=== PATIENT | female | born 1950 | race Caucasian/White ===

== ENCOUNTER 2025-01-26 11:58 | Outpatient (CLI) | payer MEDICARE, SELFPAY ==
--- OUTSIDE RECORDS SUMMARY | 2010-03-06 19:00 | XMS_ITS | Continuity of Care Document ---
Author Organization [facility] Address [address] [place] [address] [place] [address] Phone Care Team Providers Care Ice Cream Scooper Name Role Phone [facility] Unavailable Unavail able Francisco Carpenter Unavailable Unavailable Procedures Procedure Date BF Plastic Sphcyl Ruth To +/-4d .12-2d Vision Svcs Frames Purchases Scratch Resistant Coating Eye Exam & Treatment Refraction Office/outpatient Visit, [facility] Advance Directives Directive Yes / No Effective Date File Name No Information Encounters Encounter Description Practice Location Reason(s) For Visit Diagnoses Date Provider Providers Copied on Encounter [facility], [address] [place] [address] [address], [place], [place], [id number], [place] tel:[phone] [facility] No Information 3-201 0 Optical [facility] . [address] [facility], [address], [place], [place], [id number], [place]. tel:[phone] Referring Provider: Gama Yancey MD P, [address] [place], [address] . tel:[phone] sulting Provider: Francisco Carpenter, [address] [place] [address], [place], [address]. tel:[phone] [facility], [address] [place] [address] [address], [place], [place], [id number], [place] tel:[phone] [facility] No Information 9-200 9 Liu Carol Ann. [address], [address], [place], [address], [place]. tel:[phone] Office/outpat ient Visit, [facility], [address], [place], [place], [address], [place] tel:[phone] [facility] No Information Jan-2 200 8 Alexa Maharaj. [address] , [address], [place], [address], [place]. tel:[phone] Family History Family Member Type Diagnosis Age At Onset No Information Payers Payer name Insurance type Covered republican ID Authoriza yani(s) [id number] Social History Type Description Quantity Date Captured Comments Sex Female Smoking Status No Information Chief Complaint And Reason For Visit No Information Reason For Referral Reason For Referral No Information History Of Present Illness Encounter Date Complaint History Of Prese nt Illness No Information Functional Status Date Functional Assessmen t No Information Instructions Date Instruction Additional Infor mation No Information Assessments Type Assessment Date No Information Patient Care Teams Name Effective Dates (start - stop) Status Members No Information
--- OUTSIDE RECORDS SUMMARY | 2025-01-25 13:00 | XMS_ITS | Encounter Summary ---
Author Organization [facility] Address [address] [place] [address] Care Team Providers Care Parachute Marker Name Role Phone Ana Vences MD Primary Care Provider [phone] Reason for Referral * Sleep Medicine (Routine) - Closed Specialty Diagnoses / Procedures Referred By Demarcus t Referred To Contact Diagnoses Obstructive sleep apnea Procedures Portable/Home Sleep Study Ciera Rogers MD [address] [place] [address] [address] [place] [address] Phone: tel: [address] [phone] Referral ID Status Reason Start Date Expiration Date Visits Re quested Visits Authorized [id number] Closed 01/05/2025 02/04/2026 1 1 Reason for Visit * Sleep Medicine (Routine) - Closed Specialty Diagnoses / Procedures Referred By Demarcus burt Referred To Contact Diagnoses Obstructive sleep apnea Procedures Portable/Home Sleep Study Ciera Rogers MD [address] [place] [address] [address] [place] [address] Phone: tel: [address] [phone] Referral ID Status Reason Start Date Expiration Date Visits Re quested Visits Authorized [id number] Closed 01/05/2025 02/04/2026 1 1 Encounter Details Date Type Department Care Team (Latest Contact Info) Description 01/25/2025 1:00 PM CDT - 01/25/2025 11:59 PM CDT Hospital Encounter [facility] [address] [place] [address] Obstructive sleep apnea Discharge Disposition: Discharge to home or self care Social History Tobacco Use Types Packs/Day Years Used Date Smoking Tobacco: Never Smokeless Tobacco: Never Alcohol Use Standard Drinks/Week Comments Never 0 (1 standard drink = 0.6 oz pur e alcohol) PHQ-2 Answer Date Recorded PHQ-2 Total Score (If total score is 3 or more points, staff should administer the PHQ-9) 0 01/19/2025 PHQ-9 Answer Date Recorded PHQ-9 Total Score 18 09/23/2024 AUDIT-C Answer Date Recorded Q1: How often do you have a drink containing alcohol? Never 01/19/2025 Q2: How many drinks containi ng alcohol do you have on a typical day when you are drinking? Patient does not drink Q3: How often do you have si x or more drinks on one occasion? Never 01/19/2025 Comments No Sex and Gender Information Value Date Recorded Sex Assigned at Not on file Legal Sex Female 3:36 AM GAME TRAPPER Gender Identity Not on file Sexual Orientation Not on file Occupation Industry Job Start Date Job End Date Retired Not on file Not on file Not on file documented as of this encounter Medications at Time of Discharge amitriptyline (ELAVIL) 50 mg tablet Take 1 tablet (50 mg total) by mouth nightly 90 tablet 1 08/23/2024 cetirizine (ZyrTEC) 10 mg tablet Take 1 tablet (10 mg total) by mouth daily as needed for allergies 90 tablet 12/09/2024 cycloSPORINE (RESTASIS MULTIDOSE) 0.05 % drops instill 1 drop by ophthalmic route every 12 hours into affected eye(s) 0 0 08/15/[address] (CYMBALTA) 60 mg capsule Take 1 capsule by mouth once daily 90 capsule 1 12/02/2024 gabapentin (NEURONTIN) 300 mg capsule TAKE 1 CAPSULE BY MOUTH NIGHTLY 90 capsule 1 10/27/2024 hydroCHLOROthiazide 12.5 mg tablet Take 1 tablet (12.5 mg total) by mouth daily 90 tablet 10/28/2024 hydrocortisone 2.5 % cream Apply topically 2 (two) times a day as needed for irritation or rash 453.6 g 4 01/06/2025 hydroxychloroquine (PLAQUENIL) 200 mg tablet Take 1 tablet (200 mg total) by mouth 2 (two) times a day 180 tablet 1 09/28/2024 levothyroxine (SYNTHROID) 88 mcg tabletIndications:A cquired hypothyroidism Take 1 tablet (88 mcg total) by mouth daily 90 tablet 4 09/23/2024 meloxicam (MOBIC) 15 mg tablet Take 1 tablet by mouth once daily 90 tablet 1 10/27/2024 potassium chloride ER (Klor-Con M20) 20 mEq CR tablet Take 1 tablet (20 mEq total) by mouth daily 90 tablet 3 10/28/2024 solifenacin (VESIcare) 10 mg tablet Take 1 tablet (10 mg total) by mouth daily 30 tablet 11 09/10/2024 Zepbound 2.5 mg/0.5 mL solution vialIndications:BMI 33.0-33.9,adult INJECT 0.5 ML (2.5 MG) UNDER THE SKIN ONCE WEEKLY (0.5ML= 50 UNITS) 2 mL 01/25/2025 documented as of this encounter Discharge Disposition Disposition Code Departure Means Destination Discharge to home or self care documented in this encounter Plan of Treatment Upcoming Encounters Date Type Department Care Team (Late st Contact Info) Description 07/06/2025 11:00 AM [facility] Hospital Encounter [address] [address] Jeffry Morris MD [address] [place] [address] [place] [address] 07/06/2025 11:00 AM GAME TRAPPER - 07/06/2025 11:30 AM GAME TRAPPER Surgery [address] [address] Jeffry Morris MD [address] [place] [address] [place] [address] COLONOSCOPY Pending Results Name Type Priority Associated Diagnoses Date /Time Portable/Home Sleep Study Sleep Center Routine Obstructive sleep apnea 01/26/2025 12:18 PM CDT Scheduled Orders Name Type Priority Associated Diagnoses Orde r Schedule Portable/Home Sleep Study Sleep Center Routine Obstructive sleep apnea Once for 1 Occurrences starting 01/25/2025 until 01/25/2025 Scheduled Procedures Name Priority Associated Diagnoses Date/Ti me COLONOSCOPY Screening for colon cancer 07/06/2025 11:00 AM GAME TRAPPER documented as of this encounter Visit Diagnoses Diagnosis Screening for colon cancer- Primary Special screening for malignant neoplasms, colon Obstructive sleep apnea Obstructive sleep apnea (adult) (pediatric) Screening for colon cancer Special screening for malignant neoplasms, colon documented in this encounter Care Teams Parachute Marker Relationship Specialty Start Date End Date Ana Vences MD [address] [place] [address] [address] [place] [address] PCP - General Family Medicine 07/06/24 documented as of this encounter
--- NOTE | ~2025-01-26 | XR_ITS ---
EXAM/PROCEDURE: XR chest 2V - 01/26/2025 13:20 CDT HISTORY: 74 years old Female with G95.9 - Disease of spinal cord, unspecified TECHNIQUE: Two view(s) of the chest. COMPARISON: None available. FINDINGS: LUNGS/ PLEURA: No focal consolidation. No appreciable pneumothorax or large pleural effusion. HEART/ MEDIASTINUM: Heart appears normal in size. Atherosclerotic calcifications are seen in the aorta. BONES: Degenerative changes. Partially visualized posterior spinal fusion hardware. Diffuse osteopenia. OTHER: Visualized upper abdomen is unremarkable. IMPRESSION: No acute process. Reviewed, dictated and finalized at location N. IMPRESSION: No acute process.
--- NOTE | 2025-01-26 12:58 | ECG_ITS ---
Test Date: 2025-01-26 13:11:13 Measurements Intervals [place] Rate: 73 P: 31 NH: 188 QRS: -9 QRSD: 106 T: 17 QT: 398 QTc: 441 Interpretive Statements SINUS RHYTHM MINIMAL VOLTAGE CRITERIA FOR LVH, CONSIDER NORMAL VARIANT [MEETS CRITERIA IN ONE OF: R(aVL), S(V1), R(V5), R(V5/V6)+S(V1)] POOR R-WAVE PROGRESSION ABNORMAL ECG No previous ECG available for comparison Electronically Signed On 01-26-2025 15:38:55 CDT by Leonid Larsen M.D.
[2025-01-26 13:35] LABS: Hematocrit 34.3 % (37.0-47.0); Hemoglobin 11.0 g/dL (12.0-15.0); Mean Corpuscular HGB Conc 32.1 g/dl (32-36); Mean Corpuscular Hemoglobin 29.7 pg (26-34); Mean Corpuscular Volume 92.7 fl (80-100); Platelet Count Result 317 k/mm3 (150-375); Red Blood Count 3.70 M/mm3 (4.2-5.4); White Blood Count 4.9 K/mm3 (4.5-10.0)
--- OUTSIDE RECORDS SUMMARY | 2025-01-26 13:38 | XMS_ITS | Encounter Summary ---
Author Organization [facility] Healthcare Address [address] [place] [address] Care Team Providers Care Food Clerk Name Role Phone Luís Schaffer MD Primary Care Provider [phone] Nba Villatoro MD Primary Care Provider [phone] Chelsi Garcia MD Primary Care Provider [phone] Ana Vences MD Primary Care Provider [phone] Reason for Visit * Reason Onset Date Comments Scheduling Appointments 12/03/2019 Called f or DEXA appointment reminder; no answer Encounter Details Date Type Department Care Team ([facility] Contact Info) Description 12/03/2019 Telephone [facility] [address] [place] [address] Dontae Betancourt RT Scheduling Appointments (Called for DEXA appointment reminder; no answer) Social History Tobacco Use Types Packs/Day Years Used Date Smoking Tobacco: Never Smokeless Tobacco: Never Alcohol Use Standard Drinks/Week Comments No 0 (1 standard drink = 0.6 oz pur e alcohol) PHQ-2 Answer Date Recorded PHQ-2 Score 0 01/15/2019 Comments No Sex and Gender Information Value Date Recorded Sex Assigned at Not on file Legal Sex Female 3:36 AM CAR TESTER Gender Identity Not on file Sexual Orientation Not on file Occupation Industry Job Start Date Job End Date Retired Not on file Not on file Not on file documented as of this encounter Plan of Treatment Upcoming Encounters Date Type Department Care Team (Late st Contact Info) Description 07/06/2025 11:00 AM CAR TESTER Hospital Encounter [address] [address] Jeffry Morris MD [address] [facility] [address] [place] [address] 07/06/2025 11:00 AM CAR TESTER - 07/06/2025 11:30 AM CAR TESTER Surgery [address] [address] Jeffry Morris MD [address] [facility] [address] [place] [address] COLONOSCOPY Scheduled Procedures Name Priority Associated Diagnoses Date/Ti me COLONOSCOPY Screening for colon cancer 07/06/2025 11:00 AM CAR TESTER documented as of this encounter Visit Diagnoses Not on filedocumented in this encounter Additional Health Concerns Infection Onset Date Last Indicated Resolved Time COVID: Suspected 12/03/2021 12/03/2021 12/03/2021 1:59 PM CDT COVID19 12/03/2021 12/03/2021 12/13/2021 3:05 AM CDT COVID: Recovered Comment:Added based on recent COVID infection. 12/13/2021 12/21/2021 04/12/2022 3:[address] documented as of this encounter Care Teams Food Clerk Relationship Specialty Start Date End Date Luís Schaffer MD PCP - General Internal Medicine 06/09/17 06/04/23 Nba Villatoro MD [address] [facility] [address] [address] PCP - General Family Medicine 06/05/23 03/28/24 Chelsi Garcia MD [address] [place] [address] PCP - General Family Medicine 03/29/24 07/05/24 Ana Vences MD [address] [place] [address] PCP - General Family Medicine 07/06/24 documented as of this encounter
--- OUTSIDE RECORDS SUMMARY | 2025-01-26 13:38 | XMS_ITS | Clinical Summary ---
Author Organization [facility] Address [address] [place] [address] Care Team Providers Care Neuropsychology Service Director Name Role Phone Unavailable Primary Care Provider Unavailabl e Source Comments [facility],non-owned Affiliates and Associated Physician Practices is amultiple site organization consisting of ambulatory clinics and hospital sitesin [place], [place], [place] and [place]. This disclosure is being madepursuant to the Care Everywhere program and may not contain all information available regarding this patient. Last updated 18.[facility] [employer] Social History Tobacco Use Types Packs/Day Years Used Date Smoking Tobacco: Never Assessed Comments Unknown Sex and Gender Information Value Date Recorded Sex Assigned at Not on file Legal Sex Female 6:24 AM FIELD STAFF Gender Identity Not on file Sexual Orientation Not on file Last Filed Vital Signs Vital Sign Reading Time Taken Comments Blood Pressure - - Pulse - - Temperature - - Respiratory Rate - - Oxygen Saturation - - Inhaled Oxygen Concentration - - Weight - - Height 162.6 cm (5' 4) 05/23/2014 3:14 PM FIELD STAFF Body Mass Index - - Plan of Treatment Health Maintenance Due Date Last Done Comments BONE DENSITY TESTING 1950 COLOGUARD (AGES 45-75) - COL ON CA SCREENING 1950 COLON MONITORING 1950 COLONOSCOPY - COLON CA SCREENING 1950 CT COLONOGRAPHY - COLON CA SCREENING 1950 Colorectal Cancer Screening 1950 FIT - COLON CA SCREENING 1950 FLEX SIG - COLON CA SCREENING 1950 LIPID TESTING 1950 MAMMOGRAM 1950 MEDICARE AWV 12 MONTHS 1950 HEPATITIS C SCREENING 04/09/1968 DTAP/TDAP/TD VACCINES (1 - Tdap) 1969 PNEUMOCOCCAL VACCINE 50+ (1 of 1 - PCV) 2000 ZOSTER VACCINE (1 of 2) 2000 COVID-19 VACCINE (2023-2 5 season) 2024 DEPRESSION SCREENING 05/26/2024 INFLUENZA VACCINE (#1) 2025 Respiratory Syncytial Virus (RSV) Vaccine Pt: or over 60 yrs (1 - 1-dose 75+ series) 2025 HEPATITIS B VACCINE Aged Out No longe r eligible based on patient's age to complete this topic HIB VACCINE Aged Out No longer eligi ble based on patient's age to complete this topic HPV VACCINE Aged Out No longer eligi ble based on patient's age to complete this topic MENINGOCOCCAL (Group B) VACC INE SHARED DECISION-MAKING Aged Out No longer eligibl e based on patient's age to complete this topic MENINGOCOCCAL GROUPS A/C/Y/W VACCINE Aged Out No longer eligible b ased on patient's age to complete this topic Insurance MEDICARE AETNA
--- OUTSIDE RECORDS SUMMARY | 2025-01-26 13:38 | XMS_ITS | Encounter Summary ---
Author Organization [facility] Healthcare Address [address] [place] [address] Care Team Providers Care Market Risk Specialist Name Role Phone Ana Vences MD Primary Care Provider [phone] Encounter Details Date Type Department Care Team (Late st Contact Info) Description 12/13/2024 Results Follow-Up [facility] at [address] [place] [address] Gama Avila MD [address] [place] [address] [address] [place] [address] Mycology (fungal) culture, hair, skin and nails Nail Toe, second, right Social History Tobacco Use Types Packs/Day Years Used Date Smoking Tobacco: Never Smokeless Tobacco: Never Alcohol Use Standard Drinks/Week Comments No 0 (1 standard drink = 0.6 oz pur e alcohol) AUDIT-C Answer Date Recorded Q1: How often do you have a drink containing alcohol? Never 12/09/2024 Q2: How many drinks containi ng alcohol do you have on a typical day when you are drinking? Patient does not drink Q3: How often do you have si x or more drinks on one occasion? Never 12/09/2024 PHQ-2 Answer Date Recorded PHQ-2 Total Score (If total score is 3 or more points, staff should administer the PHQ-9) 0 12/09/2024 PHQ-9 Answer Date Recorded PHQ-9 Total Score 18 09/23/2024 Comments No Sex and Gender Information Value Date Recorded Sex Assigned at Not on file Legal Sex Female 3:36 AM FISH CLEANER MACHINE TENDER Gender Identity Not on file Sexual Orientation Not on file Occupation Industry Job Start Date Job End Date Retired Not on file Not on file Not on file documented as of this encounter Plan of Treatment Upcoming Encounters Date Type Department Care Team (Late st Contact Info) Description 07/06/2025 11:00 AM FISH CLEANER MACHINE TENDER Hospital Encounter [address] [address] Jeffry Morris MD [address] [facility] [address] [place] [address] 07/06/2025 11:00 AM FISH CLEANER MACHINE TENDER - 07/06/2025 11:30 AM FISH CLEANER MACHINE TENDER Surgery [address] [address] Jeffry Morris MD [address] [facility] [address] [place] [address] COLONOSCOPY Scheduled Procedures Name Priority Associated Diagnoses Date/Ti me COLONOSCOPY Screening for colon cancer 07/06/2025 11:00 AM FISH CLEANER MACHINE TENDER documented as of this encounter Visit Diagnoses Not on filedocumented in this encounter Care Teams Market Risk Specialist Relationship Specialty Start Date End Date Ana Vences MD [address] [facility] [address] [place] [address] PCP - General Family Medicine 07/06/24 documented as of this encounter
--- OUTSIDE RECORDS SUMMARY | 2025-01-26 13:38 | XMS_ITS | Encounter Summary ---
Author Organization [facility] Healthcare Address [address] [place] [address] Care Team Providers Care Plasterer Rough Name Role Phone Ana Vences MD Primary Care Provider [phone] Reason for Visit * Reason Onset Date Comments Medical Question/Miscellaneous 01/04/2025 Encounter Details Date Type Department Care Team ([facility] st Contact Info) Description 01/04/2025 Telephone [facility] Residency Clinic at [address] [place] [address] Ana Vences MD [address] [place] [address] [address] [place] [address] Medical Question/Miscellaneous Social History Tobacco Use Types Packs/Day Years Used Date Smoking Tobacco: Never Smokeless Tobacco: Never Alcohol Use Standard Drinks/Week Comments No 0 (1 standard drink = 0.6 oz pur e alcohol) PHQ-2 Answer Date Recorded PHQ-2 Total Score (If total score is 3 or more points, staff should administer the PHQ-9) 0 01/06/2025 PHQ-9 Answer Date Recorded PHQ-9 Total Score 18 09/23/2024 AUDIT-C Answer Date Recorded Q1: How often do you have a drink containing alcohol? Never 01/06/2025 Q2: How many drinks containi ng alcohol do you have on a typical day when you are drinking? Patient does not drink Q3: How often do you have si x or more drinks on one occasion? Never 01/06/2025 Comments No Sex and Gender Information Value Date Recorded Sex Assigned at Not on file Legal Sex Female 3:36 AM FRUIT THINNER MACHINE OPERATOR Gender Identity Not on file Sexual Orientation Not on file Occupation Industry Job Start Date Job End Date Retired Not on file Not on file Not on file documented as of this encounter Functional Status * AUDIT-C Score Answer Date of Assessment Author 0 01/06/2025 12:56 PM CDT Yun Mendez MA * Question Answer Date of Assessment Author Q1: How often do you have a drink containing alcohol? Never 01/06/2025 12:56 PM CDT Yun Mendez MA Q2: How many drinks containing alcohol do you have on a typical day when you are drinking? Patient does not drink 01/06/2025 12:56 PM CDT Yun Mendez MA Q3: How often do you have six or more drinks on one occasion? Never 01/06/2025 12:56 PM CDT Yun Mendez MA documented as of this encounter Miscellaneous Notes * Telephone Encounter - Maddison Hayes - 01/04/2025 9:57 AM CDT Call Back Caller???s Concern: patient is returning a missed call. DIRECTOR EMERGENCY DEPARTMENT read patient JAMISON Brannon's message foundunder notes in chart. Patient states she doesn't want to discontinue this medication. Call was warmtransferred to the backline. Does message need to be routed? No documented in this encounter Plan of Treatment Upcoming Encounters Date Type Department Care Team (Late st Contact Info) Description 07/06/2025 11:00 AM FRUIT THINNER MACHINE OPERATOR Hospital Encounter [facility] [address] [place] [address] Jeffry Morris MD [address] [place] [address] 07/06/2025 11:00 AM FRUIT THINNER MACHINE OPERATOR - 07/06/2025 11:30 AM FRUIT THINNER MACHINE OPERATOR Surgery [facility] [address] [place] [address] Jeffry Morris MD [address] [place] [address] [address] [place] [address] COLONOSCOPY Scheduled Procedures Name Priority Associated Diagnoses Date/Ti me COLONOSCOPY Screening for colon cancer 07/06/2025 11:00 AM FRUIT THINNER MACHINE OPERATOR documented as of this encounter Visit Diagnoses Not on filedocumented in this encounter Care Teams Plasterer Rough Relationship Specialty Start Date End Date Ana Vences MD [address] [facility] [address] [place] [address] PCP - General Family Medicine 07/06/24 documented as of this encounter
--- OUTSIDE RECORDS SUMMARY | 2025-01-26 13:38 | XMS_ITS | Clinical Summary ---
Author Organization [facility] Address [address] [place] [address] Care Team Providers Care [facility] Director Name Role Phone Ana Vences MD Primary Care Provider [phone] Allergies Active Allergy Reactions Criticality Noted Date Comments Adhesive Tape-Silicones Rash,Hives Medium 05/02/2014 Dicyclomine Hcl Other (See comments) Low 09/29/2023 Causes changes to vision and dry eye Egg Swelling Medium Lactose Diarrhea,Flatulence, Stomach upset,Other (See comments) Low 06/26/2002 Medications cycloSPORINE (RESTASIS MULTIDOSE) 0.05 % drops instill 1 drop by ophthalmic route every 12 hours into affected eye(s) 0 0 017 Active amitriptyline (ELAVIL) 50 mg tablet Take 1 tablet (50 mg total) by mouth nightly 90 tablet 1 025 Active solifenacin (VESIcare) 10 mg tablet Take 1 tablet (10 mg total) by mouth daily 30 tablet 11 025 2025 Active levothyroxine (SYNTHROID) 88 mcg tabletIndications :Acquired hypothyroidism Take 1 tablet (88 mcg total) by mouth daily 90 tablet 4 025 Active hydroxychloroquin e (PLAQUENIL) 200 mg tablet Take 1 tablet (200 mg total) by mouth 2 (two) times a day 180 tablet 1 Active gabapentin (NEURONTIN) 300 mg capsule TAKE 1 CAPSULE BY MOUTH NIGHTLY 90 capsule 1 025 Active meloxicam (MOBIC) 15 mg tablet Take 1 tablet by mouth once daily 90 tablet 1 025 Active hydroCHLOROthiazi de 12.5 mg tablet Take 1 tablet (12.5 mg total) by mouth daily 90 tablet 025 Active potassium chloride ER (Klor-Con M20) 20 mEq CR tablet Take 1 tablet (20 mEq total) by mouth daily 90 tablet [address] (CYMBALTA) 60 mg capsule Take 1 capsule by mouth once daily 90 capsule 1 025 Active cetirizine (ZyrTEC) 10 mg tablet Take 1 tablet (10 mg total) by mouth daily as needed for allergies 90 tablet 025 Active hydrocortisone 2.5 % cream Apply topically 2 (two) times a day as needed for irritation or rash 453.6 g 4 025 Active Zepbound 2.5 mg/0.5 mL solution vialIndications:B NV 33.0-33.9,adult INJECT 0.5 ML (2.5 MG) UNDER THE SKIN ONCE WEEKLY (0.5ML= 50 UNITS) 2 mL Active gabapentin (NEURONTIN) 100 mg capsule Take 1 capsule (100 mg total) by 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 before breakfast 90 capsule 025 2024 Discontinued(T herapy completed) DULoxetine DR (CYMBALTA) 30 mg capsule Take 1 capsule by mouth once daily 90 capsule 1 025 2024 Discontinued(P atient Reported) tirzepatide, weight loss, (ZEPBOUND) 2.5 mg/0.5 mL solution vialIndications:W eight Loss Management for Obese Patient (BMI >= 30) Inject 0.5 mL (2.5 mg total) under the skin every 7 days This medication record is used for ordering a prescription for [employer] 2 mL 025 2024 Discontinued(R eorder) Zepbound 2.5 mg/0.5 mL solution vialIndications:B NV 33.0-33.9,adult INJECT 0.5 ML (2.5 MG) UNDER THE SKIN ONCE WEEKLY (0.5ML= 50 UNITS) 2 mL 025 2024 Discontinued Hospital, Clinic, or Other Facility Administered Medication Ordered Dose Route Frequency Start Date End Date Status lidocaine (XYLOCAINE) 10 mg/mL (1 %) injection 3 mLIndications:Admini stration of Local Anesthesia 3 mL One-Time Injection 01/19/2025 01/19/2025 Ended Active Problems Problem Noted Date Diagnosed Date Ingrown nail of great toe 01/19/2025 Assessment & Plan (01/19/2025 12:04 PM CDT): Discussed risks and benefits of procedure. Patient is a candidate for procedure at this time, and has given verbal consent. Discussed after care. See procedure note for further details. Orders: Nail Care/Removal lidocaine (XYLOCAINE) 10 mg/mL (1 %) injection 3 mL Toenail deformity 12/09/2024 Assessment & Plan (01/06/2025 1:37 PM CDT): Chronic stable; improved with trimming the nail Did find it difficult to complete conservative measures and attempt to lift the nail from the nail bed; requesting referral to podiatry. - Podiatry referral for ingrown nail; removal/excision. - Schedule for procedure clinic if unable to get apt w/ Pods Assessment & Plan (12/09/2024 1:45 PM CDT): Chronic, stable. Clipped today; agrees to conservative management. She reports significant relief after trimming of nail. Sent to lab to r/o onychomycosis Does not appear infected. BMI 33.0-33.9,adult 12/09/2024 Assessment & Plan (12/09/2024 1:47 PM CDT): Chronic, stable. Requesting to start medication for it. - Start Mounjaro 2.5 mg Itchy scalp 12/09/2024 Assessment & Plan (01/06/2025 1:37 PM CDT): Several months of itchy scalp; no evident rash on exam. Reports that it's worse with heat. Has eliminated the new scented shampoo and it has persisted. She has known hx of SLE/Sjogrens/Raynaud's so atopy is possible. - Manage with HC 2.5% lotion - Consider ketoconazole 2% shampoo if unsuccessful Assessment & Plan (12/09/2024 1:48 PM CDT): No evident rash; reports having tried new shampoo. Will treat with anti-histamines while she attempts to identify her trigger. - Zyrtec 10 mg daily PRN for itchiness. - Avoid scented shampoos/conditioners. 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 Patient already on duloxetine. -Consider adjunctive medications (Bupropion vs mirtazapine vs atypical antipsychotics -Referral to counseling sent Acute cystitis 07/06/2024 Urinary frequency 07/01/2024 Assessment & Plan (07/01/2024 9:12 AM TRAINING DEVELOPMENT DIRECTOR): Having complaints of increased urinary frequency. -Will check UA -treat accordingly Class 1 obesity without seri ous comorbidity with body mass index (BMI) of 34.0 to 34.9 in adult 07/01/2024 Assessment & Plan (07/01/2024 9:10 AM TRAINING DEVELOPMENT DIRECTOR): Discussed lifestyle modifications to help reduce weight including diet and exercise. Patient is interested in GLP-1 agonists. Discussed the risks and benefits of the medications. -Will check if patient is diabetic for better coverage. Nummular eczema 07/01/2024 Assessment & Plan (07/01/2024 9:08 AM TRAINING DEVELOPMENT DIRECTOR): Exam consistent with nummular eczema at the left hip and periumbilical area. Failed OTC hydrocortisone steroid cream. -Will send Rx for triamcinolone 0.1% cream to be applied to the area twice daily. -consider more potent steroid if no improvement. -alternatively we can consider biopsy in the future if no significant improvement. No diagnosis on [place] 04/02/2023 Other chronic pain 04/02/2023 Lower extremity edema 01/21/2023 Assessment & Plan (07/01/2024 9:03 AM TRAINING DEVELOPMENT DIRECTOR): Controlled with diuretics. Assessment & Plan (01/21/2023 3:21 PM CDT): Reduce salt in diet, decrease gabapentin to 300 mg nightly, increase hydrochlorothiazide to full tablet 12.5 mg daily. Try compression hose. Keep legs elevated. Try weight loss. Umbilical hernia 04/04/2022 Assessment & Plan (04/04/2022 4:27 PM TRAINING DEVELOPMENT DIRECTOR): Small reducible and painless. Call back for surgical referral when ready. Warned of signs of strangulation which would prompt an ER visit. Tubular adenoma 10/01/2021 Assessment & Plan (10/01/2021 1:59 PM CDT): Patient counseled extensively on the need for repeat colonoscopy to reduce her risk of colon cancer which can lead to premature and other poor outcomes. Encounter for long-term (cur rent) use of high-risk medication 05/08/2021 Assessment & Plan (05/08/2021 2:01 PM TRAINING DEVELOPMENT DIRECTOR): Long-term use of high-risk medication requiring regular monitoring. Labs ordered, no s/s of med tox or infection. Encouraged to work with PCP to make sure all recommended cancer screens and vaccinations are complete. Avoid live-vaccines unless reviewed with inside technical sales representative first. Up to date with eye exams. Piriformis syndrome of right side 04/02/2021 Assessment & Plan (05/08/2021 2:04 PM TRAINING DEVELOPMENT DIRECTOR): Link to home exercise plan provided. Patient is frustrated that no pain relief is offered since she has had gastric bypass 10+ years ago. In the past she tolerated ibuprofen 800 mg tid but it was dc'd due to concerns for GI bleed. She would like something she could take in moderation for breakthrough pain. We discussed risk/benefit of celebrex and she will use it sparingly, understanding that of the NSAIDS it is the least likely to cause GI issue. She understands the importance of limited use and monitoring. Hyperlipidemia, unspecified 03/29/2021 Assessment & Plan (01/21/2023 3:18 PM CDT): Continue efforts at diet exercise. Assessment & Plan (04/04/2022 4:26 PM TRAINING DEVELOPMENT DIRECTOR): Diet exercise and check lipids and LFTs before next visit Assessment & Plan (10/01/2021 1:58 PM CDT): Well controlled on current therapy and will check a lipid panel and LFTs in 6 months. Assessment & Plan (03/29/2021 10:25 AM CDT): She has an elevated risk of ASCVD at 15% but declines statin therapy and is aware the risks this poses to her health. Diet exercise discussed. Bunion 03/29/2021 Assessment & Plan (03/29/2021 10:26 AM CDT): Podiatry referral. Sprain of anterior talofibular ligament of left ankle 03/13/2021 Cervicalgia 01/31/2021 Assessment & Plan (01/31/2021 12:22 PM CDT): X-rays of her cervical spine and call back for results. Refilled her methocarbamol. Should avoid NSAIDs with history of gastric bypass surgery. She reports tramadol providing no benefit in the past. Trial of Page with sedating side effects discussed and should not drive while using this medication. Risks of constipation also discussed. Gentle stretching exercises demonstrated and will refer for Physical therapy evaluation. Finally if no improvement, pain management referral. 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 11/13/2020 Overview (11/13/2020): Added automatically from request for surgery [id number] Degenerative arthritis of pr oximal interphalangeal joint of middle finger of right hand 11/13/2020 Overview (11/13/2020): Added automatically from request for surgery [id number] Abdominal pain 10/18/2020 Overview (10/18/2020): Added automatically from request for surgery [id number] History of colonic polyps 10/18/2020 Overview (10/18/2020): Added automatically from request for surgery [id number] Microscopic hematuria 09/26/2020 Assessment & Plan (09/26/2020 6:33 PM CDT): Repeat UA and C&S in 1 week to ensure clearing of her microscopic hematuria related to her recent urinary tract infection. Epigastric abdominal pain 09/26/2020 Assessment & Plan (09/26/2020 6:33 PM CDT): EGD and CT of her abdomen pelvis. GI referral as needed. Stop NSAIDs with history of gastric bypass. Continue Pepcid. H/O Clostridium difficile infection 09/15/2018 Overview (09/15/2018): 02/2018 GERD (gastroesophageal reflux disease) 9 Assessment & Plan (09/26/2020 6:32 PM CDT): Continue Pepcid for now. Stop ibuprofen. Assessment & Plan (04/20/2020 8:20 PM TRAINING DEVELOPMENT DIRECTOR): Pepcid p.r.n. Assessment & Plan (09/16/2018 11:21 PM CDT): Start ranitidine 150 mg p.o. B.i.d. And call back if no improvement for switching to PPI. Overactive bladder 03/02/2018 Overview (09/15/2018): Myrbetriq was too expensive 02/2018. Failed Ditropan - dry mouth. Assessment & Plan (01/21/2023 3:19 PM CDT): Try increasing VESIcare to 10 mg daily. Warned of potential increase of dry mouth. Assessment & Plan (09/16/2018 11:14 PM CDT): Continue VESIcare. Assessment & Plan (03/02/2018 6:20 PM CDT): Trial of Myrbetriq. If ineffective or not covered, consider Ditropan. Patient aware of possible side effects. Irritable bowel syndrome with diarrhea 8 Overview (09/26/2020): Diarrhea caused by amlodipine Assessment & Plan (03/02/2018 6:18 PM CDT): Has not done well with fiber, probiotics, Imodium. EGD and colonoscopy without source of diarrhea. Trial of Xifaxan and will call back with results. Osteoporosis 09/01/2017 Overview (03/29/2021): Evenity for 12 months complete, and will plan on prolia afterwords. Assessment & Plan (01/21/2023 3:19 PM CDT): Completed evenity for 12 months. Prolia on hold due to current dental issues. Call back when resolved. Assessment & Plan (04/04/2022 4:24 PM TRAINING DEVELOPMENT DIRECTOR): Cannot use Prolia or Reclast until all oral issues resolved and healed. Call back at that time for Prolia order. Continue calcium vitamin-D and weight-bearing exercise. Bone density has improved after evenity. Assessment & Plan (10/01/2021 1:57 PM CDT): Continue calcium 1000 mg and vitamin-D 400 units and weight-bearing exercise and Prolia and repeat bone density scan before next visit. Assessment & Plan (03/29/2021 10:26 AM CDT): She has completed her evenity. Risks and benefits of Prolia discussed and will refer. No dental surgeries around the time of injection. Continue calcium, vitamin-D, weight-bearing exercise. Assessment & Plan (09/26/2020 6:31 PM CDT): Complete 12 months of Evenity then plan on Prolia thereafter indefinitely. Assessment & Plan (04/20/2020 8:19 PM TRAINING DEVELOPMENT DIRECTOR): Calcium, vitamin-D, weight-bearing exercise and refer for Evenity due to high risk of fracture with a T-score of -4.1. Assessment & Plan (09/23/2019 3:35 PM CDT): Calcium, vitamin-D, weight-bearing exercise and recommend repeat bone density scan when able. Assessment & Plan (03/18/2019 10:32 AM CDT): Calcium, vitamin-D, weight-bearing exercise and still declines pharmacological treatment. Repeat bone density scan before next visit. Assessment & Plan (09/16/2018 11:15 PM CDT): Continue calcium, vitamin-D, weight-bearing exercise. She has previously declined pharmacological therapy and is aware of the risks posed to her health by fragility fractures. Repeat bone density scan at her convenience. Assessment & Plan (09/01/2017 5:48 PM CDT): Continue calcium, vitamin-D, weight-bearing exercise and recommended pharmacological treatment for prevention of fragility fractures which can be life altering if not life ending events. Patient still declines. B12 deficiency 09/01/2017 Assessment & Plan (01/21/2023 3:18 PM CDT): Continue B12 supplementation check levels yearly. Assessment & Plan (04/04/2022 4:26 PM TRAINING DEVELOPMENT DIRECTOR): Continue supplementation check level before next visit Assessment & Plan (10/01/2021 1:57 PM CDT): Continue B12 supplementation. Assessment & Plan (03/29/2021 10:24 AM CDT): Continue supplementation and check level before next visit Assessment & Plan (09/26/2020 6:31 PM CDT): Continue B12 supplementation check level in 1 year. Assessment & Plan (04/20/2020 8:20 PM TRAINING DEVELOPMENT DIRECTOR): Level improved and will check once yearly. Assessment & Plan (09/23/2019 3:35 PM CDT): Restart supplementation at 500 mcg daily and check level before next visit. Assessment & Plan (03/18/2019 10:32 AM CDT): Continue supplementation check level before next visit. Assessment & Plan (09/16/2018 11:16 PM CDT): Continue supplementation but decrease to 500 mcg daily. Assessment & Plan (03/02/2018 6:17 PM CDT): Continue supplementation and check level before next visit. Assessment & Plan (09/01/2017 5:48 PM CDT): Should take 1000 mcg of B12 daily. Anemia 09/01/2017 Overview (10/01/2021): Chronic disease B12, TSH normal 09/2021; Folate normal 08/2018, iron normal 08/2019 Assessment & Plan (07/01/2024 9:02 AM TRAINING DEVELOPMENT DIRECTOR): History of anemia. Likely of chronic disease. -Will check CBC to evaluate Assessment & Plan (01/21/2023 3:18 PM CDT): Mild chronic stable and asymptomatic. Likely due to anemia of chronic disease. Assessment & Plan (10/01/2021 1:58 PM CDT): Most likely due to anemia of chronic disease. B12, TSH currently normal. Folate and iron levels previously normal. Assessment & Plan (09/23/2019 3:36 PM CDT): Hemoglobin 1/10 of a point low. TSH normal currently. Folate normal August 2018. B12 low normal currently and will restart supplementation. Iron studies normal currently. Assessment & Plan (03/18/2019 10:33 AM CDT): Very mild and asymptomatic. Probably due to anemia of chronic disease. TSH elevated will adjust her replacement therapy. Folate normal. B12 normal last visit. Iron normal but saturation and iron binding capacity abnormal. She has been on iron in the past but had side effects. Repeat CBC and iron levels next visit. Consider treatment if anemia worsens and correction of her TSH does not improve her levels.. Assessment & Plan (09/01/2017 5:49 PM CDT): Likely due to anemia of chronic disease and her medications. Negative Cologuard 2016. EGD and colonoscopy recently recommended by her pressurization mechanic. Hypokalemia 09/01/2017 Assessment & Plan (07/01/2024 9:03 AM TRAINING DEVELOPMENT DIRECTOR): Prior history of hypokalemia, currently on KCl 20mEq. -Will check BMP -continue K supplement Assessment & Plan (09/23/2019 3:35 PM CDT): Continue supplementation and check level before next visit. Assessment & Plan (03/02/2018 6:17 PM CDT): Continue supplementation. Medicare annual wellness visit, subsequent 09/01 Assessment & Plan (01/21/2023 3:19 PM CDT): We discussed a comprehensive list of medical conditions and proposed recommendations for each. We discussed the importance of increased exercise, fall prevention, proper nutrition, and suggested joining [facility] to accomplish most of these goals. Patient was given an age appropriate Medicare preventive services checklist. Please see the EMR regarding details of their health risk assessment and preventive services checklist. Will see her back in 6 months with lab sooner if needed. Assessment & Plan (10/01/2021 1:59 PM CDT): We discussed a comprehensive list of medical conditions and proposed recommendations for each. We discussed the importance of increased exercise, fall prevention, proper nutrition, and suggested joining [facility] to accomplish most of these goals. Patient was given an age appropriate Medicare preventive services checklist. Please see the EMR regarding details of their health risk assessment and preventive services checklist. Patient counseled extensively on the need for repeat colonoscopy and the fact that we can refer her to another pressurization mechanic in another location. She is aware of the risks posed to her health with failure to do so. She will call back if she changes her mind. Will see her back in 6 months with lab sooner if needed. Assessment & Plan (09/26/2020 6:32 PM CDT): We discussed a comprehensive list of medical conditions and proposed recommendations for each. We discussed the importance of increased exercise, fall prevention, proper nutrition, and suggested joining [facility] to accomplish most of these goals. Patient was given an age appropriate Medicare preventive services checklist. Please see the EMR regarding details of their health risk assessment and preventive services checklist. Will see her back in 6 months with lab sooner if needed. Assessment & Plan (09/23/2019 3:36 PM CDT): We discussed a comprehensive list of medical conditions and proposed recommendations for each. We discussed the importance of increased exercise, fall prevention, proper nutrition, and suggested joining [facility] to accomplish most of these goals. Patient was given an age appropriate Medicare preventive services checklist. Please see the EMR regarding details of their health risk assessment and preventive services checklist. Will see her back in 6 months with lab sooner if needed. Assessment & Plan (09/16/2018 11:17 PM CDT): We discussed a comprehensive list of medical conditions and proposed recommendations for each. We discussed the importance of increased exercise, fall prevention, proper nutrition, and suggested joining [facility] to accomplish most of these goals. Patient was given an age appropriate Medicare preventive services checklist. Please see the EMR regarding details of their health risk assessment and preventive services checklist. Will see her back in 6 months with lab sooner if needed. Assessment & Plan (09/01/2017 5:50 PM CDT): We discussed a comprehensive list of medical conditions and proposed recommendations for each. We discussed the importance of increased exercise, fall prevention, proper nutrition, and suggested joining [facility] to accomplish most of these goals. Patient was given an age appropriate Medicare preventive services checklist. Please see the EMR regarding details of their health risk assessment and preventive services checklist. Update Prevnar today. Declines flu shots and is aware the risks this poses to her health. Shingrix recommended. He is a day of last tetanus booster. Bone density due August 2018. Will see her back in 6 months with lab sooner if needed. At low risk for fall 09/01/2017 Assessment & Plan (01/21/2023 3:18 PM CDT): Timed get up and go test normal. Assessment & Plan (10/01/2021 1:59 PM CDT): Timed get up and go test normal. Assessment & Plan (09/26/2020 6:32 PM CDT): Timed get up and go test normal. Assessment & Plan (09/23/2019 3:37 PM CDT): Timed get up and go test normal. Assessment & Plan (09/16/2018 11:17 PM CDT): Timed get up and go test normal. Assessment & Plan (09/01/2017 5:50 PM CDT): Timed get up and go test normal. Calculus of gallbladder with out cholecystitis without obstruction 06/17/2017 Assessment & Plan (07/16/2017 9:18 AM TRAINING DEVELOPMENT DIRECTOR): Azra recently but still symptomatic, nausea slightly better Assessment & Plan (06/17/2017 9:27 AM TRAINING DEVELOPMENT DIRECTOR): This is a 67-year-old female with symptomatic cholelithiasis. We will plan a cholecystectomy. I explained to her all the risks and benefits of undergoing a cholecystectomy for symptomatic gallstones. She is also experiencing other atypical GI symptoms. And has had a history of esophagitis and reflux. Therefore I will refer her back to GI for further workup. Hx of esophagitis 06/17/2017 Assessment & Plan (07/16/2017 9:19 AM TRAINING DEVELOPMENT DIRECTOR): Last egd 2007, took pantoprazole until 2 years ago (worried about potential side effects of residential use) but denies much of reflux- only sporadically H/o gastric bypass Allergic rhinitis 06/09/2017 Assessment & Plan (06/09/2017 3:05 PM TRAINING DEVELOPMENT DIRECTOR): Recommended daily antihistamine including Claritin or Zyrtec along with Flonase nasal spray once daily will see her here in 2 weeks regarding condition certainly testing home avoiding any outdoor exposure this is any correlation with her worsening allergic symptoms was advised. We will touch base in 2 weeks and her any further management if symptoms have not improved or any worsening in symptoms Tension headache 06/09/2017 Assessment & Plan (06/09/2017 3:03 PM TRAINING DEVELOPMENT DIRECTOR): Recommended stress headaches to be the likely cause this considering correlation however considering her intermittent nausea only recommended Tylenol [id number] for pain alleviation in no ibuprofen or NSAIDs. Certainly relaxation techniques, exercise or all great for stress-induced headaches certainly massages especially near the neck region to assist with cervical strain related headaches. We will touch base with patient after treating her for allergic rhinitis and determine improvement in symptoms and need further management Acquired hypothyroidism 02/07/2017 Overview (03/29/2021): Half tablet Synthroid on Sundays otherwise full tablet otherwise Assessment & Plan (09/28/2024 7:14 PM CDT): Takes synthroid 100 mcg daily. TSH remains low. Likely overtreated. -Will decrease dose to 88 mcg daily. Assessment & Plan (07/01/2024 9:01 AM TRAINING DEVELOPMENT DIRECTOR): Takes synthroid 100 mcg daily. Last TSH was low. Dose may need to be adjusted. -Will check TSH Assessment & Plan (01/21/2023 3:18 PM CDT): Decrease Synthroid to half tablet on Sundays and full tablet otherwise and repeat TSH and free T4 before next visit Assessment & Plan (04/04/2022 4:26 PM TRAINING DEVELOPMENT DIRECTOR): Patient is asymptomatic on current dose of levothyroxine and TSH free T4 are normal and we will repeat levels before next visit. Assessment & Plan (10/01/2021 1:57 PM CDT): Patient is asymptomatic on current dose of levothyroxine and TSH free T4 are normal and we will repeat levels before next visit. Assessment & Plan (03/29/2021 10:24 AM CDT): Patient is asymptomatic on current dose of levothyroxine and TSH free T4 are normal and we will repeat levels before next visit. Assessment & Plan (09/26/2020 6:30 PM CDT): Reduce Synthroid to half tablet on Friday and full tablet the rest of the week. Recheck thyroid studies before next visit. Assessment & Plan (04/20/2020 8:17 PM TRAINING DEVELOPMENT DIRECTOR): Patient is asymptomatic on current dose of levothyroxine and TSH free T4 are normal and we will repeat levels before next visit. Assessment & Plan (09/23/2019 3:36 PM CDT): Patient is asymptomatic on current dose of levothyroxine and TSH free T4 are normal and we will repeat levels before next visit. Assessment & Plan (03/18/2019 10:31 AM CDT): Changed to branded Synthroid he increased to 100 mcg daily and check levels before next visit. Assessment & Plan (09/16/2018 11:16 PM CDT): Patient is asymptomatic on current dose of levothyroxine and TSH free T4 are normal and we will repeat levels before next visit. Assessment & Plan (03/02/2018 6:17 PM CDT): Check TSH and free T4 before next visit. Patient declines checking today. Assessment & Plan (09/01/2017 5:48 PM CDT): Decrease levothyroxine to 100 mcg daily and check levels before next visit. History of bilateral knee arthroplasty 7 Raynaud's disease 01/23/2017 Overview (03/18/2019): Dizziness and diarrhea with amlodipine. Assessment & Plan (03/18/2019 10:30 AM CDT): Stable without her amlodipine and side effects of dizziness and diarrhea completely resolved. Assessment & Plan (09/16/2018 11:14 PM CDT): Continue amlodipine. Assessment & Plan (03/02/2018 6:17 PM CDT): Continue amlodipine. Assessment & Plan (09/01/2017 5:47 PM CDT): Continue amlodipine. Osteoarthritis 08/15/2016 Overview (10/18/2016): OA Assessment & Plan (09/26/2020 6:34 PM CDT): Referral to Dr Nguyen for surgical evaluation of bilateral hand osteoarthritis Benign paroxysmal positional vertigo 08/07/2016 Migraine headache 08/07/2016 Memory impairment 06/06/2015 Systemic lupus erythematosus 08/22/2014 Overview (01/23/2017): SLE (systemic lupus erythematosus) LOUIE positive Ssa positive sm vat tender ssb antidna and anti cardiolipins negative Joint pain and raynauds Assessment & Plan (06/30/2024 10:24 AM TRAINING DEVELOPMENT DIRECTOR): Taking hydroxychloroquine Sees Rheum at [facility]. Assessment & Plan (01/21/2023 3:19 PM CDT): Follow-up with inside technical sales representative as they direct. Assessment & Plan (05/08/2021 2:05 PM TRAINING DEVELOPMENT DIRECTOR): Increase hydroxychloroquine to 200 mg bid, labs today, continue to monitor. Duloxetine increased to 60 mg daily for her chronic MSK pain. Assessment & Plan (03/29/2021 10:24 AM CDT): Follow-up with inside technical sales representative as they direct Assessment & Plan (09/26/2020 6:30 PM CDT): Follow-up with her inside technical sales representative as they direct. Assessment & Plan (04/20/2020 8:17 PM TRAINING DEVELOPMENT DIRECTOR): Follow-up with inside technical sales representative as they direct. Assessment & Plan (09/23/2019 3:34 PM CDT): Follow-up with inside technical sales representative as they direct. Assessment & Plan (03/18/2019 10:30 AM CDT): Follow-up with inside technical sales representative as they direct. Assessment & Plan (09/16/2018 11:14 PM CDT): Follow-up with inside technical sales representative as they direct. Assessment & Plan (03/02/2018 6:16 PM CDT): Follow-up with her inside technical sales representative as they direct Assessment & Plan (09/01/2017 5:47 PM CDT): Continue current medication regimen follow up Dr. Posey as she directs. Fibromyalgia 08/22/2014 Overview (08/30/2016): Fibromyalgia Sensory neuropathy 08/22/2014 Overview (08/30/2016): Sensory peripheral neuropathy Assessment & Plan (09/16/2018 11:14 PM CDT): Stable on gabapentin. Assessment & Plan (03/02/2018 6:16 PM CDT): Stable on gabapentin. Assessment & Plan (09/01/2017 5:47 PM CDT): Stable on gabapentin. Hypertension 08/22/2014 Overview (03/18/2019): Dizziness and diarrhea with amlodipine. Assessment & Plan (07/01/2024 9:00 AM TRAINING DEVELOPMENT DIRECTOR): Taking Hydrochlorothiazide 12.5 mg. Controlled. -Continue current medication Assessment & Plan (01/21/2023 3:18 PM CDT): Pressure is well controlled on hydrochlorothiazide. Try increasing to full tablet daily for lower extremity swelling. Assessment & Plan (04/04/2022 4:24 PM TRAINING DEVELOPMENT DIRECTOR): Well controlled on the current regimen. Avoidance of salt, proper body weight, and routine exercise recommended. Assessment & Plan (10/01/2021 1:57 PM CDT): Blood pressure stable on current medication regimen. Assessment & Plan (03/29/2021 10:24 AM CDT): Well controlled on the current regimen. Avoidance of salt, proper body weight, and routine exercise recommended. Assessment & Plan (09/26/2020 6:30 PM CDT): Well controlled on the current regimen. Avoidance of salt, proper body weight, and routine exercise recommended. Assessment & Plan (04/20/2020 8:17 PM TRAINING DEVELOPMENT DIRECTOR): Well controlled on the current regimen. Avoidance of salt, proper body weight, and routine exercise recommended. Assessment & Plan (09/23/2019 3:35 PM CDT): Well controlled on the current regimen. Avoidance of salt, proper body weight, and routine exercise recommended. Assessment & Plan (03/18/2019 10:31 AM CDT): Well controlled on hydrochlorothiazide. Assessment & Plan (09/16/2018 11:15 PM CDT): Well controlled on the current regimen. Avoidance of salt, proper body weight, and routine exercise recommended. Assessment & Plan (03/02/2018 6:16 PM CDT): Well controlled on the current regimen. Avoidance of salt, proper body weight, and routine exercise recommended. Assessment & Plan (09/01/2017 5:47 PM CDT): Well controlled on the current regimen. Avoidance of salt, proper body weight, and routine exercise recommended. Assessment & Plan (06/09/2017 3:04 PM TRAINING DEVELOPMENT DIRECTOR): Slightly higher in office today than ideal. Patient remains asymptomatic. Close monitoring outpatient continue current antihypertensives and will see her here in 2 weeks to recheck blood pressure Cervical myelopathy 05/05/2014 Assessment & Plan (09/01/2017 5:48 PM CDT): No complaints today. Continue current pain medication. Resolved Problems Problem Noted Date Diagnosed Date Resolved Date Intractable diarrhea 06/17/2017 025 Assessment & Plan (07/16/2017 9:25 AM TRAINING DEVELOPMENT DIRECTOR): Diarrhea since 2007, intermittent- she will have sensation of using restroom and loose stool. Last colonoscopy 2007 but incomplete- she was told that had kink colon, then had barium enema. Cologard last year normal. After cholecystectomy slightly better Wonder if could be functional, related to remote gastric surgery Will give ib-mikey My main goal of colonoscopy is to obtain random biopsies to assess for microscopic colitis, even if unable to complete colonoscopy BMI 37.0-37.9, adult 06/09/2017 021 Assessment & Plan (03/18/2019 10:31 AM CDT): Patient is encouraged to lose weight with a combination of caloric reduction and increased exercise. Assessment & Plan (09/16/2018 11:17 PM CDT): Patient is encouraged to lose weight with a combination of caloric reduction and increased exercise. Assessment & Plan (06/09/2017 2:51 PM TRAINING DEVELOPMENT DIRECTOR): Recommended patient to continue to increase heart healthy diet with adequate fruits, vegetables, and plenty of water along with mild-moderate daily exercise as tolerated. Nausea 06/09/2017 09/23/2019 Assessment & Plan (07/16/2017 9:19 AM TRAINING DEVELOPMENT DIRECTOR): egd as outpatient sb biopsies Assessment & Plan (06/09/2017 3:04 PM TRAINING DEVELOPMENT DIRECTOR): Unable to determine exact cause of her nausea she is quite vague in office today. Will move forward to determine if there is any gallbladder relation to right upper quadrant ultrasound. She had test done few months ago which all were within normal limits but will consider ordering were test and certainly an upper scope if indicated. Stress could also cause nausea this was advised in office will touch base here in 2 weeks after completion of scan determine need further management Acute allergic rhinitis due to food 06/09/2017 06/09/2017 Body mass index (bmi) 38.0-38.9, adult 03/04/2017 06/09/2017 Assessment & Plan (03/04/2017 9:26 AM CDT): Recommended patient to continue to increase heart healthy diet with adequate fruits, vegetables, and plenty of water along with mild-moderate daily exercise as tolerated. Oral pharyngeal candidiasis 03/04/2017 06/30/2024 Assessment & Plan (09/16/2018 11:16 PM CDT): Clotrimazole and call back if no improvement. Assessment & Plan (03/04/2017 9:43 AM CDT): Recommended clotrimazole lozenges 5 times a day x2 full week course along with rinsing and spitting mouth out and brushing teeth with toothbrush in the disposal after certainly if symptoms persist after 2nd round of antifungals she is advised follow up in our office regarding this condition Age-related osteoporosis kristy cobos current pathological fracture 02/07/2017 09/01/2017 Healthcare maintenance 02/06/201703/02 Medication management 02/06/20172017 Morbid obesity 08/15/2016 03/02/2018 Overview (10/18/2016): Morbid obesity Encounters Date Type Department Care Team Description 01/25/2025 1:00 PM CDT - 01/25/2025 11:59 PM CDT Hospital Encounter [facility] [address] [place] [id number] Obstructive sleep apnea Discharge Disposition: Discharge to home or self care 01/19/2025 11:00 AM CDT Procedure visit [facility] at [address] [place] [address] Ana Vences MD Ingrown nail of great toe (Primary Dx) 01/06/2025 1:00 PM CDT Office Visit [facility] at [address] [address] Gama Avila MD Itchy scalp (Primary Dx); Toenail deformity 01/06/2025 Orders Only [facility] at [address] [address] Gama Avila MD Toenail deformity (Primary Dx) 01/05/2025 1:30 PM CDT Office Visit [facility] at [address] [place] [address] Ciera Rogers MD Insomnia, unspecified type (Primary Dx); Obstructive sleep apnea; Hypersomnia; Obesity, unspecified class, unspecified obesity type, unspecified whether serious comorbidity present 01/04/2025 12:53 PM CDT - 01/04/2025 11:59 PM CDT Hospital Encounter [facility] [address] [address] Disease of spinal cord, unspecified Discharge Disposition: Discharge to home or self care 01/04/2025 12:53 PM CDT - 01/04/2025 11:59 PM CDT Hospital Encounter [address] [address] Age-related osteoporosis without current pathological fracture Discharge Disposition: Discharge to home or self care 01/04/2025 Telephone [facility] at [address] [address] Ana Vences MD Medical Question/Miscellane ous 12/13/2024 Telephone [facility] at [address] [place] [phone] Ana Vences MD 12/13/2024 Results Follow-Up [facility] at [address] [place] [address] Gama Avila MD Mycology (fungal) culture, hair, skin and nails Nail Toe, second, right 12/09/2024 1:45 PM CDT - 12/09/2024 11:59 PM [place] [address] Toenail deformity Discharge Disposition: Discharge to home or self care 12/09/2024 1:00 PM CDT Office Visit [facility] at [address] [place] [address] Gama Avila MD Toenail deformity (Primary Dx); BMI 33.0-33.9,adult; Itchy scalp 12/09/2024 Telephone [facility] at [address] [place] [address] Mary Anne Naidu LPN 12/09/2024 Orders Only [facility] at [address] [place] [address] Gama Avila MD Colon cancer screening (Primary Dx) 11/11/2024 2:49 PM CDT - 11/11/2024 11:59 PM CDT Hospital Encounter [address] [address] Disease of spinal cord (HCC) Discharge Disposition: Discharge to home or self care 11/10/[address] [address] Sarita Chao 11/02/2024 2:18 PM CDT - 11/02/2024 11:59 PM CDT Hospital Encounter [address] [address] Disease of spinal cord (HCC) Discharge Disposition: Discharge to home or self care from Last 3 Months Immunizations Immunization Administration Dates Next Due Influenza, Quadrivalent, Hig h Dose, Preservative Free, Intrr 06/30/2024(Deferred: Patient Refused),12/24/2022(Deferred: Patient Refused) Influenza, Quadrivalent, Rec ombinant, Egg Free, Preservative Free, Intramuscular 03/02/2018 Influenza, Unspecified 06/30/2024(Deferr ed: Patient Refused),02/23/2021(Deferred: Patient Refused),09/26/2020(Deferred: Patient Refused),06/30/2020(Deferred: Patient Refused),03/24/2020(Deferred: Patient Refused),02/24/2020(Deferred: Patient Refused),02/24/2020(Deferred: Patient Refused),02/24/2020(Deferred: Patient Refused),12/25/2019(Deferred: Patient Refused),03/18/2019(Deferred: Patient Refused),02/23/2019(Deferred: Patient Refused),02/23/2019(Deferred: Patient Refused),03/29/2018 Pfizer SARS-CoV-2 Monovalent Vaccination (12+ Yrs) PURPLE 10/24/2020,10/02/2020 Pneumococcal Conjugate PCV 13 09/01/2017 Pneumococcal Polysaccharide PPV23 10/01/2021, Tdap 12/13/2016,11/23/2016 ZOSTER Recombinant 01/04/2019,10/09/2018 Surgical History Surgery Date Site/Laterality Comments OTHER SURGICAL HISTORY fusion finger and thumb joints OTHER SURGICAL HISTORY bilateral knee replace OTHER SURGICAL HISTORY spine decompression OTHER SURGICAL HISTORY C3-C4 fusion OTHER SURGICAL HISTORY Left Hand, Finger Joint Fusion & Cyst Removal CATARACT EXTRACTION Bilateral Cataract extraction KNEE ARTHROPLASTY 05/26/2007 - 05/25/2008 Bilateral Knee replacement OTHER SURGICAL HISTORY C3-C4 Spine Laminectomy GASTRIC BYPASS Gastric bypass OTHER SURGICAL HISTORY 01-Personal Service Workers: Dr. Flor Posey OTHER SURGICAL HISTORY 02-Orthopedic Surgeon: Dr. Romel Cornell HYSTERECTOMY 05/26/1997 - 05/25/1998 Vaginal Hysterectomy - fibroids SPINAL FUSION Spinal fusion, lumbar SPINAL FUSION 05/26/2009 - 05/25/2010 Spinal fusion, lumbar CHOLECYSTECTOMY 06/20/2017 Laparoscopic Cholecystectomy UPPER GASTROINTESTINAL ENDOSCOPY 05/26/2007 - 05/25/2008 BREAST BIOPSY Right BREAST CYST ASPIRATION Right BREAST LUMPECTOMY 05/26/1989 - 05/25/1990 Right no chemo/radiation CATARACT EXTRACTION 12/07/2009 POLYPECTOMY COLONOSCOPY 09/16/2017 first colonoscopy attempt unsucessful due to twisted colon HAND SURGERY 11/23/2020 - 12/23/2020 Right JOINT REPLACEMENT 05/26/2007 - 05/25/2008 LASIK 05/26/1989 - 05/25/1990 Medical History Medical History Date Comments Hypoactive thyroid Hypothyroidis m; Comments: [facility] 08/15/2016 - Ocular migraine Ocular migraine; Comments: [facility] 08/15/2016 - Hx Other Medical -Rheumatologi st Hx Other Medical -Orthopedic S urgeon Osteoarthritis Osteoarthritis; Comments: [facility] 08/15/2016 - Raynaud's disease Raynauds disea se; Comments: [facility] 08/15/2016 - GERD (gastroesophageal reflux disease) Chronic diarrhea Dysphagia occasional solid and liquids Fibrocystic breast Breast cancer (HCC) 1989 no chemo/rad iation Breast cyst Cataract 12/07/2009 Autoimmune disease 07/10/09 PONV (postoperative nausea a nd vomiting) Colon polyp Diverticulosis Fibromyalgia Sjogren's syndrome Anemia 05/26/1969 Oral pharyngeal candidiasis 03/04/2017 Family History Medical History Relation Name Comments Hypothyroidism Brother 1 Hypothyroidis m; Lupus Brother 2 Lupus erythemat osus; Atrial fibrillation Father Sacha Atrial f ibrillation; COPD Father Sacha COPD; Cancer Father Sacha lung - COD Heart attack Mother Vickie Myocardial infa rction; Heart disease Mother Vickie Cardiovascular disease; Lupus Mother Vickie Systemic lupus erythematosus; Osteoarthritis Mother Vickie Osteoarthriti s; Other Mother Vickie Sjorgens; /Seps is; Cause of : Sepsis Rheumatic fever Mother Vickie Rheumatic fe stephen; Thyroid disease Mother Vickie Thyroid diso rder; Other Other Family history of pacemakers; Breast cancer Sister 1 freddie Other Sister 1 freddie Kidney Issues; Atrial fibrillation Sister 2 Atrial f ibrillation; Breast cancer Sister 2 Arthritis Sister 3 Valencia Arthritis; Hypothyroidism Sister 4 Hypothyroidis m; Lupus Sister 5 Lupus erythemat osus; Other Sister 6 Graves Disease; Other Sister 7 Raynauds; Ovarian cancer Neg Hx Thyroid cancer Neg Hx Relation Name Status Comments Brother 1 Brother 2 Father Sacha Mother Vickie (Age 80) Other Sister 1 freddie Alive Sister 2 Sister 3 Valencia Sister 4 Sister 5 Sister 6 Sister 7 Social History Tobacco Use Types Packs/Day Years Used Date Smoking Tobacco: Never Smokeless Tobacco: Never Tobacco Cessation:Counseling Given: Not Answered Alcohol Use Standard Drinks/Week Comments Never 0 [...] on file Legal Sex Female 3:36 AM TRAINING DEVELOPMENT DIRECTOR Gender Identity Not on file Sexual Orientation Not on file Occupation Industry Job Start Date Job End Date Retired Not on file Not on file Not on file Obstetrics History Para Term AB IAB SAB Ectopic Multiple Livin g Live Births 2 2 2 0 0 2 Date Outcome GA Total Labor Labor/2nd/3rd Weight Sex Type Anes PTL Shahla A1 A5 Name Clin Term Term Last Filed Vital Signs Vital Sign Reading Time Taken Comments Blood Pressure 122/84 01/19/2025 10:55 AM CDT Pulse 74 01/19/2025 10:55 AM CDT Temperature 36.5 C (97.7 F) 01/19/2025 10:55 AM CDT Respiratory Rate 16 01/19/2025 10:5 5 AM CDT Oxygen Saturation 100% 01/19/2025 10: 55 AM CDT Inhaled Oxygen Concentration - - Weight 84.7 kg (186 lb 11.2 oz) 025 10:55 AM CDT Height 160 cm (5' 2.99) 01/19/2025 10: 55 AM CDT Body Mass Index 33.08 01/19/2025 10:55 AM CDT Plan of Treatment Upcoming Encounters Date Type Department Care Team (Late st Contact Info) Description 07/06/2025 11:00 AM TRAINING DEVELOPMENT DIRECTOR Hospital Encounter [facility] [address] [place] [address] Jeffry Morris MD [address] [place] [address] 07/06/2025 11:00 AM TRAINING DEVELOPMENT DIRECTOR - 07/06/2025 11:30 AM TRAINING DEVELOPMENT DIRECTOR Surgery [address] [address] Jeffry Morris MD [address] [place] [address] COLONOSCOPY Scheduled Procedures Name Priority Associated Diagnoses Date/Ti me COLONOSCOPY Screening for colon cancer 07/06/2025 11:00 AM TRAINING DEVELOPMENT DIRECTOR Health Maintenance Due Date Last Done Comments Hepatitis B Screening 1968 Colon Cancer Screening-Colonoscopy 02/23/2021 11/23/2020, 09/16/2017, 08/27/2004 Well Visit 65+ 01/22/2024 01/21/2023, 05/0 01/2022, 09/26/2020, Additional history exists Covid-19 Vaccine (3 - Pfizer risk series) 06/30/2025 10/24/2020, 10/02/2020 Postponed from 11/21/2020 (Patient declined, but will receive in the future) Breast Cancer Screening-Mammogram 07/21/2025 07/21/2024, 06/10/2023, 05/21/2022, Additional history exists Depression Screening 01/19/2026 01/19/2025, 01/06/2025, 12/09/2024, Additional history exists Fall Risk Assessment 01/19/2026 01/19/2025, 09/23/2024, 06/30/2024, Additional history exists DTaP/Tdap/Td Vaccine (3 - Td or Tdap) 12/13/2026 12/13/2016, 11/23/2016 Osteoporosis Screening-Bone Density Scan 01/04/2027 01/04/2025, 12/21/2021, 12/06/2019, Additional history exists Hepatitis C Screening Completed 08/03/2014 Influenza Vaccine Discontinued 03/29/2018, 03/02/2018 Zoster Vaccine Completed 01/04/2019, 10/09/2018 Colon Cancer Screening-CT Colonography Discontinued 11/23/2020, 09/16/2017, 08/27/2004 Colon Cancer Screening-DNA Stool Discontinued 11/23/2020, 09/16/2017, 08/27/2004 Colon Cancer Screening-FIT Discontinued 11/23, 09/16/2017, 08/27/2004 Colon Cancer Screening-Sigmoidoscopy Discontinued 11/23/2020, 09/16/2017, 08/27/2004 Pneumococcal vaccine 65+ Completed 022, 09/01/2017, 04/10/2014 Medical Devices Implanted Type Area Loan Representative Device Identifier Shelf Expiration Date Model / Serial / Lot 3m Bilateral : Knee 3m Bilateral : Lumbar-Sa cral Spine Description:Rods, screws, an d plate in lower lumbar 3m Cervical- Thoracic Spine Description:Screws and possi ble plate [employer] Ar-8978-Cp Internalbrace Kit Hand Wrist Set Implant Ligament Augmentation - [id number] Implanted:Qty: 1 on 11/28/2020 at [facility] [employer] [id number] 08/23/2025 AR-8978-C P / / [id number] [employer] Ar-8978p Dx Swivelock Sl 3.5mm 8.5mm [place] Eyelet [place] Suture Sterile - [id number] Implanted:Qty: 1 on 11/28/2020 at [facility] [employer] [id number] AR-8978P / / [employer] Ar-8725-24h Compression Ft 2.5mm 24mm Compression Self Tap Cannulated Hex 1.5 - [id number] Implanted:Qty: 1 on 11/28/2020 at [facility] [employer] AR-8725-2 4H / / Explanted Type Area Loan Representative Device Identifier Shelf Expiration Date Model / Serial / Lot [employer] 1600-762 Miracle .062in 9in 2 Trocar Wire Fixation - [id number] Explanted:Qty: 1 on 11/28/2020 at [facility] [employer] [id number] 08/25/2024 1600-962 / / [id number] Procedures Procedure Name Priority Date/Time Associated Diagnosis Comments AL WEDGE EXCISION SKIN NAIL FOLD Routine 01/19/2025 11:00 AM CDT Ingrown nail of great toe CTA NECK W CONTRAST Schedule Routine, Read Routine (OP Routine) 01/04/2025 2:07 PM CDT Disease of spinal cord, unspecified DEXA AXIAL SKELETON BONE DENSITY 1 OR MORE SITES Schedule Routine, Read Routine (OP Routine) 01/04/2025 1:13 PM CDT Age-related osteoporosis without current pathological fracture MYCOLOGY (FUNGAL) CULTURE, HAIR, SKIN AND NAILS Routine 12/09/2024 7:43 PM CDT Toenail deformity CT CERVICAL SPINE WO CONTRAST Schedule Routine, Read Routine (OP Routine) 11/11/2024 3:04 PM CDT Disease of spinal cord (HCC) XR SCOLIOSIS AP LAT Schedule Routine, Read Routine (OP Routine) 11/02/2024 2:46 PM CDT Disease of spinal cord (HCC) XR SPINE CERVICAL COMPLETE 4 OR 5 VW Schedule Routine, Read Routine (OP Routine) 11/02/2024 2:46 PM CDT Disease of spinal cord (HCC) SCREENING MAMMOGRAM BILATERAL W WINSTON Schedule Routine, Read Routine (OP Routine) 07/21/2024 2:28 PM TRAINING DEVELOPMENT DIRECTOR Screening mammogram, encounter for COLONOSCOPY 11/23/2020 9:58 AM CDT HM HEPATITIS C SCREENING Routine 08/03/2014 from Last 3 Months or Most Recently Relevant to Health Maintenance Results * AL WEDGE EXCISION SKIN NAIL FOLD (01/19/2025 11:00 AM CDT) Narrative Florinda Mcnally MD - 01/19/2025 11:00 AM CDT Florinda Mcnally MD 01/19/2025 12:20 PM Nail Care/Removal Performed by: Ana Vences MD Authorized by: Florinda Mcnally MD Coats Protocol: Consent Given by: Patient Location: right big toe Anesthesia: Anesthesia: Digital block Medications: 3 mL lidocaine 10 mg/mL (1 %) Procedure Details: Preparation: Skin prepped with Betadine Amount of Nail Removed: Partial Side: Medial Wedge excision of skin of nail fold: Yes Nail bed sutured?: No Nail matrix removed: None Removed nail replaced and anchored: No Subungual hematoma drained (via Trephination): No Dressing applied: Antibiotic ointment, non-adhesive packing strip and dressing applied Patient tolerance: Patient tolerated the procedure well with no immediate complications us Florinda Mcnally MD IN CLINIC/BEDSIDE ORDERAB LES Final Result * CTA Neck W Contrast (01/04/2025 2:07 PM CDT) Anatomical Region Laterality Modality Head and Neck N/A Computed Tomogra phy 01/05/2025 8:20 AM CDT Narrative 01/05/2025 8:58 AM CDT EXAM DESCRIPTION: CTA NECK W CONTRAST REASON FOR STUDY: disease of spinal cord Patient states stenosis of C 1,2,[address] cervical spine imaging Patient also states she has had fusion in the upper C-spine TECHNIQUE: Axial dynamic scanning technique with dynamic contrast enhancement through the extra-cranial carotid and vertebral arteries. Multiplanar reconstruction. All images saved on PACS. All stenosis measurements are based on NASCET criteria. 3D MIP images rendered on scanning unit and reviewed at time of interpretation. Automated exposure control was used as a dose optimization technique for this examination. COMPARISON: Cervical spine CT from 11/11/2024. Cervical spine MRI 09/01/2024. CONTRAST TYPE/DOSE: 100mL of IOVERSOL 350 MG IODINE/ML INTRAVENOUS SYRINGE injected via intravenous FINDINGS: There is a medial course of the bilateral common carotid artery. There is overall mild athero sclerotic plaque. RIGHT CAROTIDS: No internal, external or common carotid stenosis. LEFT CAROTIDS: No internal, external or common carotid stenosis. RIGHT VERTEBRAL: Patent. No significant stenosis. No dissection. LEFT VERTEBRAL: Evaluation of the proximal cervical vertebral artery is degraded by artifact from the dense adjacent intravenous contrast. Where visualized, there is patency without significant stenosis. AORTIC ARCH: Normal three-vessel origin. Bilateral subclavian arteries are patent. No dissection. NECK SOFT TISSUE: No mass, adenopathy. No thyroid nodule greater than 1 cm. INCLUDED LUNGS: There is pulmonary emphysema 2 mm solid noncalcified juxtapleural right upper lobe pulmonary nodule on image 132 of series 5 OTHER: Current protocol is not optimized for evaluation of the cervical spine. Anterior discectomy and fusion is redemonstrated at C3-C4. No gross change in multilevel degenerative disc and joint disease, discussed in greater detail on cervical spine CT of 11/11/2024. No gross evidence of acute fracture or aggressive bone lesion is seen.. There is multilevel osseous neural foraminal and spinal canal stenosis, most pronounced at C2-C3, as previously detailed. IMPRESSION: 1. No significant stenosis in the bilateral cervical carotid or vertebral arteries. 2. Medial course of the common carotid arteries. 3. 2 mm solid noncalcified right upper lobe pulmonary nodule. Per Fleischner Society Guidelines, no further investigation recommended unless clinically warranted. THIS IS AN ELECTRONICALLY VERIFIED FINAL REPORT 01/05/2025 8:58 AM - Electronically signed by Keith Brennan M.D. MZ: WILLIAM Report ID: [id number] Reading Location: [id number] Procedure Note Keith Brennan MD - 01/05/2025 EXAM DESCRIPTION: CTA NECK W CONTRAST REASON FOR STUDY: disease of spinal cord Patient states stenosis of C 1,2,[address] cervical spine imaging Patient also states she has had fusion in the upper C-spine TECHNIQUE: Axial dynamic scanning technique with dynamic contrastenhancement through the extra-cranial carotid and vertebral arteries. Multiplanar reconstruction. All images saved on PACS. All stenosis measurements arebased on NASCET criteria. 3D MIP images rendered on scanning unit andreviewed at time of interpretation. Automated exposure control was used as a dose optimization technique for this examination. COMPARISON: Cervical spine CT from 11/11/2024. Cervical spine MRI 09/01/2024. CONTRAST TYPE/DOSE: 100mL of IOVERSOL 350 MG IODINE/ML INTRAVENOUSSYRINGE injected via intravenous FINDINGS: There is a medial course of the bilateral common carotid artery. There is overall mild athero sclerotic plaque. RIGHT CAROTIDS: No internal, external or common carotid stenosis. LEFT CAROTIDS: No internal, external or common carotid stenosis. RIGHT VERTEBRAL: Patent. No significant stenosis. No dissection. LEFT VERTEBRAL: Evaluation of the proximal cervical vertebral artery is degraded by artifact from the dense adjacent intravenous contrast. Where visualized, there is patency without significant stenosis. AORTIC ARCH: Normal three-vessel origin. Bilateral subclavian arteriesare patent. No dissection. NECK SOFT TISSUE: No mass, adenopathy. No thyroid nodule greater than 1cm. INCLUDED LUNGS: There is pulmonary emphysema 2 mm solid noncalcified juxtapleural right upper lobe pulmonary nodule on image 132 of series 5 OTHER: Current protocol is not optimized for evaluation of the cervical spine. Anterior discectomy and fusion is redemonstrated at C3-C4. Nogross change in multilevel degenerative disc and joint disease, discussed ingreater detail on cervical spine CT of 11/11/2024. No gross evidence of acute fracture or aggressive bone lesion is seen.. There is multilevel osseous neural foraminal and spinal canal stenosis, most pronounced at C2-C3, as previously detailed. IMPRESSION: 1. No significant stenosis in the bilateral cervical carotid orvertebral arteries. 2. Medial course of the common carotid arteries. 3. 2 mm solid noncalcified right upper lobe pulmonary nodule. Per Fleischner Society Guidelines, no further investigation recommended unless clinically warranted. THIS IS AN ELECTRONICALLY VERIFIED FINAL REPORT 01/05/2025 8:58 AM - Electronically signed by Keith Brennan M.D. 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 CLINICAL INFORMATION: Current height: 63 inches Maximum height: 65.5 inches Weight: 187 pounds Risk factors: Postmenopausal, prior hip/vertebral fracture, adult fracture, parental hip fracture, rheumatoid arthritis COMPARISON: 12/21/2021 FINDINGS: Right HIP: Total BMD is 0.710 g/cm2 T-score is -1.9 This is increased in comparison to prior exam which is statistically significant. Femoral neck BMD is 0.623 g/cm2 T-score is -2.0 LEFT HIP: Total BMD is 0.544 g/cm2 T-score is -3.3 This is decreased in comparison to prior exam which is statistically significant. Femoral neck BMD is 0.468 g/cm2 T-score is -3.4 FRAX: FRAX not reported due to T-scores of hip, femoral neck and/or spine being at or below -2.5 (Osteoporosis). IMPRESSION: 1. Osteoporosis. REFERENCE: Bone mineral density: T-Score: Normal (T-score above or = -1.0) Low bone mass (T-score between -1.0 and -2.5) replaces the previously used term osteopenia Osteoporosis (T-score = or below -2.5) Z-Score: Within the expected range for age (Z-score above -2.0) Below the expected range for age (Z-score is -2.0 or below) Please see below follow up recommendations. Medical evaluation for secondary causes of low bone mineral density may be appropriate. FRAX is a World Health Organization validated fracture risk assessment tool that calculates a person's 10 year probability of a major osteoporosis related fracture and hip fracture. According to the National Osteoporosis Foundation guidelines, postmenopausal women and men age 50 or older with low bone mass and a 10 year probability of a major osteoporosis related fracture = or greater than 20% or a 10 year probability of a hip fracture = or greater than 3% should be considered for pharmacological treatment for the prevention of osteoporosis. For further information, including treatment recommendations, please refer to the 2019 ISCD Official Positions (http://www.iscd.org) and the NOF's Clinician's Guide to Prevention and Treatment of Osteoporosis (http://www.nof.org/professionals/clinical-guidelines) THIS IS AN ELECTRONICALLY VERIFIED FINAL REPORT 01/04/2025 5:08 PM - Electronically signed by Gama Marshall M.D. 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 CLINICAL INFORMATION: Current height: 63 inches Maximum height: 65.5 inches Weight: 187 pounds Risk factors: Postmenopausal, prior hip/vertebral fracture, adultfracture, parental hip fracture, rheumatoid arthritis COMPARISON: 12/21/2021 FINDINGS: Right HIP: Total BMD is 0.710 g/cm2 T-score is -1.9 This is increased in comparison to prior exam which is statistically significant. Femoral neck BMD is 0.623 g/cm2 T-score is -2.0 LEFT HIP: Total BMD is 0.544 g/cm2 T-score is -3.3 This is decreased in comparison to prior exam which is statistically significant. Femoral neck BMD is 0.468 g/cm2 T-score is -3.4 FRAX: FRAX not reported due to T-scores of hip, femoral neck and/or spine beingat or below -2.5 (Osteoporosis). IMPRESSION: 1. Osteoporosis. REFERENCE: Bone mineral density: T-Score: Normal (T-score above or = -1.0) Low bone mass (T-score between -1.0 and -2.5) replaces thepreviously used term osteopenia Osteoporosis (T-score = or below -2.5) Z-Score: Within the expected range for age (Z-score above -2.0) Below the expected range for age (Z-score is -2.0 or below) Please see below follow up recommendations. Medical evaluation forsecondary causes of low bone mineral density may be appropriate. FRAX is a World Health Organization validated fracture risk assessmenttool that calculates a person's 10 year probability of a major osteoporosisrelated fracture and hip fracture. According to the National OsteoporosisFoundation guidelines, postmenopausal women and men age 50 or older with low bonemass and a 10 year probability of a major osteoporosis related fracture = or greater than 20% or a 10 year probability of a hip fracture = or greaterthan 3% should be considered for pharmacological treatment for the preventionof osteoporosis. For further information, including treatment recommendations, please referto the 2019 ISCD Official Positions (http://www.iscd.org) and the NOF's Clinician's Guide to Prevention and Treatment of Osteoporosis (http://www.nof.org/professionals/clinical-guidelines) THIS IS AN ELECTRONICALLY VERIFIED FINAL REPORT 01/04/2025 5:08 PM - Electronically signed by Gama Marshall M.D. MF: BROOKLYN Report ID: [id number] Reading Location: [place] [address] us Eusebia Albert MD IMG DXA PROCEDURES Final Result * Mycology (fungal) culture, hair, skin and nails Nail Toe, second, right (12/09/2024 7:43 PM CDT) Report Final Report: No growth of fungus Comment:Testing performed by : [facility], [address] [facility] [place] [address] Nail (Toe, second, right) 12/09/2024 7:43 PM CDT 12/10/2024 12:43 AM CDT Tere Pascual 01/07/2025 7:58 AM CDT Testing performed by [facility] ([phone]). us Gama Avila MD LAB MICROBIOLOGY - GENERAL O RDERABLES Final Result EMELYN SHEPHERD [address] Department [place] [address] * CT Cervical Spine WO Contrast (11/11/2024 3:04 PM CDT) Anatomical Region Laterality Modality Spine N/A Computed Tomogra phy 11/18/2024 7:01 PM CDT Narrative 11/18/2024 7:11 PM CDT EXAM DESCRIPTION: CT CERVICAL SPINE WO CONTRAST REASON FOR STUDY: Disease of spinal cord, unspecified Left arm pain for a couple of months, history of surgery TECHNIQUE: Axial images through the cervical spine with sagittal and coronal reformatted images. Volume rendered 3D images were obtained on a dedicated workstation. Automated exposure control was used as a dose optimization technique for this examination. COMPARISON: Cervical spine MRI dated 09/01/2022. Cervical spine radiographs dated 11/02/2022. FINDINGS: ALIGNMENT: Reversal of the normal cervical lordosis. Mild anterolisthesis of C2 on C3. VERTEBRAE: Osseous structures are diffusely demineralized. Diffuse endplate degenerative changes and marginal spur formation, most noticeable at C2-C3 and C7-T1. There is severe C1-C2 lateral mass joint space narrowing with lucent and sclerotic changes. Similar changes of the atlantodental interval. Facet arthropathy ranging from moderate to severe at C2-C3. There is osseous fusion across the posterior elements from C3-C6. DISCS: Intervertebral disc height loss at C2-C3 and C7-T1. There is some osseous fusion across the C4-C5 through C6-C7 disc spaces. HARDWARE: Status post C3-C4 ACDF with osseous fusion across the disc space. INDIVIDUAL LEVELS: Suboptimally evaluated by non myelographic CT technique. C2-C3: Posterior disc osteophyte complex and thickened ligamentum flavum. Moderate to severe osseous spinal canal stenosis. Uncovertebral spurring and facet arthropathy with moderate to severe neural foraminal narrowing. C3-C4: Surgical level. No gross osseous spinal canal stenosis. Uncovertebral spurring and facet arthropathy with moderate right and no significant left osseous neural foraminal narrowing. C4-C5: Surgical level. Previous left laminectomy. No gross osseous spinal canal stenosis. Uncovertebral spurring and facet arthropathy with [id number] right and no significant left osseous neural foraminal narrowing. C5-C6: No gross osseous spinal canal or neural foraminal narrowing. C6-C7: No gross osseous spinal canal or neural foraminal narrowing. C7-T1: Posterior disc osteophyte complex and thickened ligamentum flavum. No significant osseous spinal canal stenosis. Uncovertebral spurring and facet arthropathy with mild osseous neural foraminal narrowing. UPPER THORACIC: Incompletely imaged. No high-grade osseous spinal canal stenosis. LUNG APICES: Please note the retropharyngeal course of the carotid vasculature. NECK SOFT TISSUES: No focal pneumonic consolidation. IMPRESSION: 1. The C3-C4 ACDF as seen on the cervical spine MRI dated 09/01/2024. 2. Non operative level degenerative changes are also similar. Continued osseous spinal canal stenosis most noticeable at C2-C3. 3. Neural foraminal narrowing and additional findings as above. THIS IS AN ELECTRONICALLY VERIFIED FINAL REPORT 11/18/2024 7:11 PM - Electronically signed by Frank Goins D.O. AP: AP Report ID: [id number] Reading Location: [place] [address] Procedure Note Frank Goins, DO - 11/18/2024 EXAM DESCRIPTION: CT CERVICAL SPINE WO CONTRAST REASON FOR STUDY: Disease of spinal cord, unspecified Left arm pain for a couple of months, history of surgery TECHNIQUE: Axial images through the cervical spine with sagittal andcoronal reformatted images. Volume rendered 3D images were obtained on [employer] workstation. Automated exposure control was used as a dose optimization technique for this examination. COMPARISON: Cervical spine MRI dated 09/01/2022. Cervical spineradiographs dated 11/02/2022. FINDINGS: ALIGNMENT: Reversal of the normal cervical lordosis. Mildanterolisthesis of C2 on C3. VERTEBRAE: Osseous structures are diffusely demineralized. Diffuseendplate degenerative changes and marginal spur formation, most noticeable at C2-C3and C7-T1. There is severe C1-C2 lateral mass joint space narrowing withlucent and sclerotic changes. Similar changes of the atlantodental interval.Facet arthropathy ranging from moderate to severe at C2-C3. There is osseousfusion across the posterior elements from C3-C6. DISCS: Intervertebral disc height loss at C2-C3 and C7-T1. There issome osseous fusion across the C4-C5 through C6-C7 disc spaces. HARDWARE: Status post C3-C4 ACDF with osseous fusion across the discspace. INDIVIDUAL LEVELS: Suboptimally evaluated by non myelographic CT technique. C2-C3: Posterior disc osteophyte complex and thickened ligamentum flavum. Moderate to severe osseous spinal canal stenosis. Uncovertebral spurringand facet arthropathy with moderate to severe neural foraminal narrowing. C3-C4: Surgical level. No gross osseous spinal canal stenosis.Uncovertebral spurring and facet arthropathy with moderate right and no significant left osseous neural foraminal narrowing. C4-C5: Surgical level. Previous left laminectomy. No gross osseousspinal canal stenosis. Uncovertebral spurring and facet arthropathy with hgiq-au-qzvayzsu right and no significant left osseous neural foraminal narrowing. C5-C6: No gross osseous spinal canal or neural foraminal narrowing. C6-C7: No gross osseous spinal canal or neural foraminal narrowing. C7-T1: Posterior disc osteophyte complex and thickened ligamentum flavum.No significant osseous spinal canal stenosis. Uncovertebral spurring andfacet arthropathy with mild osseous neural foraminal narrowing. UPPER THORACIC: Incompletely imaged. No high-grade osseous spinal canal stenosis. LUNG APICES: Please note the retropharyngeal course of the carotid vasculature. NECK SOFT TISSUES: No focal pneumonic consolidation. IMPRESSION: 1. The C3-C4 ACDF as seen on the cervical spine MRI dated 09/01/2024. 2. Non operative level degenerative changes are also similar. Continued osseous spinal canal stenosis most noticeable at C2-C3. 3. Neural foraminal narrowing and additional findings as above. THIS IS AN ELECTRONICALLY VERIFIED FINAL REPORT 11/18/2024 7:11 PM - Electronically signed by Frank Goins D.O. AP: AP Report ID: [id number] Reading Location: [place] [address] Lisa Darby J[employer] SOFTWARE ARCHITECT IMG CT PROCEDURES Janet l Result * XR Scoliosis Ap Lat (11/02/2024 2:46 PM CDT) Anatomical Region Laterality Modality Spine N/A Computed Radiogr aphy 11/02/2024 9:11 PM CDT Narrative 11/02/2024 9:16 PM CDT EXAM DESCRIPTION: XR SCOLIOSIS AP AND LATERAL; XR SPINE CERVICAL COMPLETE 4 OR 5 VW REASON FOR STUDY: Spondylosis. Neck and back pain. Chronic Pain hx of fusions and stenosis c and l FINDINGS: Two views thoracolumbar spine and 4 dedicated views cervical spine submitted with comparison 09/01/2024, 10/11/2020. Cervical spine: No acute fracture. C3-C6 fusion is present. Mild C2-C3 and severe C6-C7 degenerative disc disease. Severe C2-C3 facet osteoarthritis. Bilateral C2-C3 and right-sided C6-C7 foraminal impingement. Severe cervicothoracic facet osteoarthritis. Thoracolumbar spine: Mild dextroscoliosis of the upper thoracic spine. Thoracic kyphosis is present. Multilevel thoracic degenerative disc disease with diffuse idiopathic skeletal hyperostosis. L1-S1 instrumented posterior spinal fusion with lumbar posterior decompression. Bilateral sacroiliac joint osteoarthritis. Right upper quadrant surgical clips. IMPRESSION: C3-C6 fusion. Mild C2-C3 and severe C6-C7 degenerative disc disease with severe C2-C3 facet osteoarthritis, and bilateral C2-C3 and right-sided C6-C7 foraminal impingement. L1-S1 instrumented posterior spinal fusion with lumbar posterior decompression. Mild dextroscoliosis of the upper thoracic spine with thoracic kyphosis, multilevel thoracic degenerative disc disease and diffuse idiopathic skeletal hyperostosis. THIS IS AN ELECTRONICALLY VERIFIED FINAL REPORT 11/02/2024 9:16 PM - Electronically signed by Gama Marshall M.D. MF: BROOKLYN Report ID: [id number] Reading Location: [id number] Procedure Note Gama Marshall MD - 11/02/2024 EXAM DESCRIPTION: XR SCOLIOSIS AP AND LATERAL; XR SPINE CERVICAL COMPLETE 4 OR 5 VW REASON FOR STUDY: Spondylosis. Neck and back pain. Chronic Pain hx of fusions and stenosis c and l FINDINGS: Two views thoracolumbar spine and 4 dedicated views cervical spinesubmitted with comparison 09/01/2024, 10/11/2020. Cervical spine: No acute fracture. C3-C6 fusion is present. Mild C2-C3 and severe C6-C7 degenerative disc disease. Severe C2-C3 facet osteoarthritis. Bilateral C2-C3 and right-sided C6-C7 foraminal impingement. Severe cervicothoracic facet osteoarthritis. Thoracolumbar spine: Mild dextroscoliosis of the upper thoracic spine. Thoracic kyphosis is present. Multilevel thoracic degenerative disc disease with diffuse idiopathic skeletal hyperostosis. L1-S1 instrumented posterior spinalfusion with lumbar posterior decompression. Bilateral sacroiliac joint osteoarthritis. Right upper quadrant surgical clips. IMPRESSION: C3-C6 fusion. Mild C2-C3 and severe C6-C7 degenerative disc disease with severe C2-Q1rkahg osteoarthritis, and bilateral C2-C3 and right-sided C6-C7 foraminal impingement. L1-S1 instrumented posterior spinal fusion with lumbar posterior decompression. Mild dextroscoliosis of the upper thoracic spine with thoracic kyphosis, multilevel thoracic degenerative disc disease and diffuse idiopathicskeletal hyperostosis. THIS IS AN ELECTRONICALLY VERIFIED FINAL REPORT 11/02/2024 9:16 PM - Electronically signed by Gama Marshall M.D. MF: BROOK[place]N Report ID: [id number] Reading Location: [place] [address] Lisa Darby [employer] SOFTWARE ARCHITECT IMG XR PROCEDURES Janet l Result * XR Spine Cervical Complete 4 or 5 Views (11/02/2024 2:46 PM CDT) Anatomical Region Laterality Modality Spine N/A Computed Radiogr aphy 11/02/2024 9:11 PM CDT Narrative 11/02/2024 9:16 PM CDT EXAM DESCRIPTION: XR SCOLIOSIS AP AND LATERAL; XR SPINE CERVICAL COMPLETE 4 OR 5 VW REASON FOR STUDY: Spondylosis. Neck and back pain. Chronic Pain hx of fusions and stenosis c and l FINDINGS: Two views thoracolumbar spine and 4 dedicated views cervical spine submitted with comparison 09/01/2024, 10/11/2020. Cervical spine: No acute fracture. C3-C6 fusion is present. Mild C2-C3 and severe C6-C7 degenerative disc disease. Severe C2-C3 facet osteoarthritis. Bilateral C2-C3 and right-sided C6-C7 foraminal impingement. Severe cervicothoracic facet osteoarthritis. Thoracolumbar spine: Mild dextroscoliosis of the upper thoracic spine. Thoracic kyphosis is present. Multilevel thoracic degenerative disc disease with diffuse idiopathic skeletal hyperostosis. L1-S1 instrumented posterior spinal fusion with lumbar posterior decompression. Bilateral sacroiliac joint osteoarthritis. Right upper quadrant surgical clips. IMPRESSION: C3-C6 fusion. Mild C2-C3 and severe C6-C7 degenerative disc disease with severe C2-C3 facet osteoarthritis, and bilateral C2-C3 and right-sided C6-C7 foraminal impingement. L1-S1 instrumented posterior spinal fusion with lumbar posterior decompression. Mild dextroscoliosis of the upper thoracic spine with thoracic kyphosis, multilevel thoracic degenerative disc disease and diffuse idiopathic skeletal hyperostosis. THIS IS AN ELECTRONICALLY VERIFIED FINAL REPORT 11/02/2024 9:16 PM - Electronically signed by Gama Marshall M.D. MF: BR[place]N Report ID: [id number] Reading Location: [place] [address] Procedure Note Gama Marshall MD - 11/02/2024 EXAM DESCRIPTION: XR SCOLIOSIS AP AND LATERAL; XR SPINE CERVICAL COMPLETE 4 OR 5 VW REASON FOR STUDY: Spondylosis. Neck and back pain. Chronic Pain hx of fusions and stenosis c and l FINDINGS: Two views thoracolumbar spine and 4 dedicated views cervical spinesubmitted with comparison 09/01/2024, 10/11/2020. Cervical spine: No acute fracture. C3-C6 fusion is present. Mild C2-C3 and severe C6-C7 degenerative disc disease. Severe C2-C3 facet osteoarthritis. Bilateral C2-C3 and right-sided C6-C7 foraminal impingement. Severe cervicothoracic facet osteoarthritis. Thoracolumbar spine: Mild dextroscoliosis of the upper thoracic spine. Thoracic kyphosis is present. Multilevel thoracic degenerative disc disease with diffuse idiopathic skeletal hyperostosis. L1-S1 instrumented posterior spinalfusion with lumbar posterior decompression. Bilateral sacroiliac joint osteoarthritis. Right upper quadrant surgical clips. IMPRESSION: C3-C6 fusion. Mild C2-C3 and severe C6-C7 degenerative disc disease with severe C2-D6ggzgy osteoarthritis, and bilateral C2-C3 and right-sided C6-C7 foraminal impingement. L1-S1 instrumented posterior spinal fusion with lumbar posterior decompression. Mild dextroscoliosis of the upper thoracic spine with thoracic kyphosis, multilevel thoracic degenerative disc disease and diffuse idiopathicskeletal hyperostosis. THIS IS AN ELECTRONICALLY VERIFIED FINAL REPORT 11/02/2024 9:16 PM - Electronically signed by Gama Marshall M.D. MF: [place] Report ID: [id number] Reading Location: [id number] Lisa Darby [employer] ARCH[employer] IMG XR PROCEDURES Janet l Result * Screening Mammogram Bilateral W Winston (07/21/2024 2:28 PM TRAINING DEVELOPMENT DIRECTOR) Anatomical Region Laterality Modality Breast Bilateral Mammography 07/21/2024 2:36 PM TRAINING DEVELOPMENT DIRECTOR Impressions 07/21/2024 2:36 PM TRAINING DEVELOPMENT DIRECTOR There is no mammographic evidence of malignancy. A 1 year screening mammogram is recommended. BI-RADS: 2 - Benign. The patient has been or will be contacted. The patient will be entered into a reminder system with a target due date of 1 year for her next mammogram. Electronically signed by: Tiny Forde M.D. Narrative 07/21/2024 2:36 PM TRAINING DEVELOPMENT DIRECTOR EXAMINATION: SCREENING MAMMOGRAM BILATERAL W [place] ORDERING HEALTHCARE PROVIDER: SELF SCREENING MAMMOGRAM HISTORY: Routine screening mammography. COMPARISON: 06/10/2023, 05/21/2022, 03/29/2021, 12/06/2019, 01/14/2018 TECHNIQUE: CC and MLO views of the bilateral breasts were obtained with digital technique using breast tomosynthesis with C view. Computer aided detection was utilized. FINDINGS: DENSITY: There are scattered areas of fibroglandular density. BREASTS: There are vascular and other benign calcifications in both breasts. There are no suspicious masses, suspicious calcifications, or other suspicious findings in either breast. There has been no suspicious interval change. us Self Screening Mammogram IMG MAMMO PROCEDURES Fi nal Result * COLONOSCOPY (11/23/2020 9:58 AM CDT) Anatomical Region Laterality Modality Other Narrative Procedure Note Jones Mcbride MD - 11/23/2020 9:58 AM CDT [facility] Patient Name: Dre Massey Procedure Date: 11/23/2020 9:58 AM Date of : 1950 Admit Type: Outpatient Age: 70 Gender: Female Attending MD: Jones Mcbride M.D. Room: [facility] END[facility]COPY ROOM 2 Note Status: Finalized Patient Profile: Refer to note in patient chart for documentation of history and physical. Procedure: Colonoscopy Indications: High risk colon cancer surveillance: Personalhistory of colonic polyps, Last colonoscopy: August 2017 Referring MD: Luís Schaffer M.D. Providers: Jones Mcbride M.D. Impression: - Preparation of the colon was inadequate. - Hemorrhoids found on perianal exam. - One 10 mm polyp in the descending colon, removed with a hot biopsy forceps. Resected andretrieved. - Melanotic mucosa in the entire examined colon. - Diverticulosis in the sigmoid colon. Recommendation: - Discharge patient to home. - Resume previous diet. - Continue present medications. - Await pathology results. - Repeat colonoscopy within 3 months because thebowel preparation was suboptimal. - Return to primary care physician as previously scheduled. Medicines: Propofol per Anesthesia Complications: No immediate complications. Estimated Blood Loss: Estimated blood loss: none. Procedure: Pre-Anesthesia Assessment: - This assessment was completed [Time ofAssessment] prior to the administration of sedation. The benefits, risks and alternatives of theprocedure and sedation were discussed and informed consentwas obtained. All questions were answered. Please referto the signed informed consent document in the medical record. The bowel preparation used was Miralax via single dose instruction. The bowel preparation used was bisacodyl tablets via single dose instruction.The scope was passed under direct vision. TheColonoscope [id number] was introduced through the anus and advanced to the the hepatic flexure. The colonoscopy was extremely difficult due to multiple diverticula in the colon, inadequate bowel prep, a redundant colon, significant looping and a tortuous colon. Successful completion of the procedure was aided by changing the patient to a supine position. The patient tolerated the procedure well. Thequality of the bowel preparation was inadequate. Findings: Hemorrhoids were found on perianal exam. A 10 mm polyp was found in the descending colon. The polyp wassessile. The polyp was removed with a hot biopsy forceps. Resection andretrieval were complete. Verification of patient identification for [facility]is[facility] hospitalimen was done by the physician and nurse using the patient's name andbirth date. Estimated blood loss was minimal. A diffuse area of moderately melanotic mucosa was found in the entire colon. Multiple small and large-mouthed diverticula were found in thesigmoid colon. Electronically signed by Jones Mcbride M.D. Jones Mcbride M.D. 11/23/2020 11:25:47 AM Number of Addenda: 0 Note Initiated On: 11/23/2020 9:58 AM Procedure Code(s): --- Professional --- 27951, 52, Colonoscopy, flexible; with removal of tumor(s), polyp(s),or other lesion(s) by hot biopsy forceps Diagnosis Code(s): --- Professional --- K57.30, Diverticulosis of large intestine without perforation orabscess without bleeding K63.89, Other specified diseases of intestine K63.5, Polyp of colon K64.9, Unspecified hemorrhoids Z86.010, Personal history of colonic polyps CPT copyright 2019 [employer]. All rights reserved. The codes documented in this report are preliminary and upon principal engineer reviewmay be revised to meet current compliance requirements. Recognized by the [employer] for promoting quality in endoscopy Jones Mcbride MD ENDOSCOPY PROCEDURES Final Re sult * HEPATITIS C SCREENING (08/03/2014) HEP C Normal Comment:NONREACTIVE Historical Provider HEALTH MAINTENANCE Final Result from Last 3 Months or Most Recently Relevant to Health Maintenance Insurance [employer] SENIOR SUPPLEMENT MEDICARE MEDICARE MEDICARE A[employer] SENIOR SUPPLEMENT MEDICARE AET[employer] SENIOR SUPPLEMENT Advance Directives For more information, please contact: [phone] * Full Code (Latest Code Status on File) Date Activated Date Inactivated Comments 11/23/2020 9:06 AM 11/23/2020 5:11 PM * Full Code Date Activated Date Inactivated Comments 11/23/2020 9:06 AM 11/23/2020 9:06 AM * Full Code Date Activated Date Inactivated Comments 09/16/2017 7:51 AM 09/16/2017 12:10 PM Care Teams Foundation Director Relationship Specialty Start Date End Date Ana Vences MD [address] [place] [address] PCP - General Family Medicine 07/06/24
--- OUTSIDE RECORDS SUMMARY | 2025-01-26 13:38 | XMS_ITS | Clinical Summary ---
Author Organization [facility] Address [address] [place] [address] Phone Care Team Providers Care Printing Equipment Mechanic Apprentice Name Role Phone Maranda Ta APRN, LENDING ACTIVITIES SUPERVISOR Unavailable Cuate Hadley MD Unavailable Ana Vences MD Primary Care Provider [phone] Allergies Active Allergy Reactions Criticality Noted Date Comments Adhesive Tape Hives 07/21/2017 Dicyclomine Hcl Other (see Comments) 09/29/2023 Causes changes to vision and dry eye Lactose Intolerance (Gi) Other (see Comments) 11/04/2022 Upset stomach Medications gabapentin (NEURONTIN) 300 MG Capsule Take 300 mg by mouth nightly. Active amitriptyline (ELAVIL) 50 MG TabletIndications:F ibromyalgia Take 50 mg by mouth nightly. 3 Active cyclobenzaprine (FLEXERIL) 5 MG TabletIndications:C ervical myelopathy (HCC),Fibromyalgia Take 5 mg by mouth nightly. 3 Active DULoxetine (CYMBALTA) [address] ParticlesIndication s:Fibromyalgia AM 3 Active ferrous sulfate 324 MG Tablet Delayed ResponseIndications :Iron deficiency Take 65 mg by mouth. Active gabapentin (NEURONTIN) 100 MG CapsuleIndications: Fibromyalgia Take 100 mg by mouth every morning. 3 Active hydroxychloroquine (PLAQUENIL) 200 MG TabletIndications:S ystemic lupus erythematosus, unspecified SLE type, unspecified organ involvement status (HCC),Sjogren syndrome with other organ involvement (HCC) Take 200 mg by mouth 2 times daily. 1 Active meloxicam (MOBIC) 15 MG TabletIndications:S ystemic lupus erythematosus, unspecified SLE type, unspecified organ involvement status (HCC),Primary osteoarthritis involving multiple joints Take 1 Tablet by mouth daily. 3 Active DULoxetine (CYMBALTA) [address] ParticlesIndication s:Fibromyalgia Take 60 mg by mouth daily. PM Active Calcium Carb-Cholecalcifero l (Os-John Extra D3) 500-15 MG-MCG Tablet Take 1 Tablet by mouth daily. 7 Active acetaminophen (Tylenol 8 Hour) 650 MG Tablet Controlled Release Take 1,300 mg by mouth every 6 hours as needed for Moderate or more severe pain. Active hydroCHLOROthiazide 12.5 MG TabletIndications:D iarrhea due to malabsorption Take 0.5 Tablets by mouth daily. 45 Tablet 5 Active potassium chloride SA (KLORCON M) 20 MEQ Tablet Controlled ReleaseIndications: Primary hypertension Take 1 Tablet by mouth daily. 90 Tablet 5 Active Synthroid 100 MCG TabletIndications:H ypothyroidism (acquired) Take 1 Tablet by mouth daily for 360 days. 90 Tablet 5 05/26/19 26 Active solifenacin (VESICARE) 10 MG Tablet Take 1 tablet by mouth once daily 90 Tablet 5 Active Active Problems Problem Noted Date Diagnosed Date RA (rheumatoid arthritis) 10/30/2022 Umbilical hernia 04/04/2022 Overview (10/07/2022): Last Assessment & Plan: Small reducible and painless. Call back for surgical referral when ready. Warned of signs of strangulation which would prompt an ER visit. Piriformis syndrome of right side 04/02/2021 Overview (10/07/2022): Last Assessment & Plan: Link to home exercise plan provided. Patient [...] limited use and monitoring. Hyperlipidemia, unspecified 03/29/2021 Overview (10/07/2022): Last Assessment & Plan: Diet exercise and check lipids and LFTs before next visit Arthritis of carpometacarpal (CMC) joint of righ t thumb 11/13/2020 Overview (10/07/2022): Added automatically from request for surgery [id number] History of colonic polyps 10/18/2020 Overview (10/07/2022): Added automatically from request for surgery [id number] Microscopic hematuria 09/26/2020 Overview (10/07/2022): Last Assessment & Plan: Repeat UA and C&S in 1 week to ensure clearing of her microscopic hematuria related to her recent urinary tract infection. GERD (gastroesophageal reflux disease) 9 Overview (10/07/2022): Last Assessment & Plan: Continue Pepcid for now. Stop ibuprofen. Irritable bowel syndrome with diarrhea 8 Overview (10/07/2022): Diarrhea caused by amlodipine Last Assessment & Plan: Has not done well with fiber, probiotics, Imodium. EGD and colonoscopy without source of diarrhea. Trial of Xifaxan and will call back with results. Overactive bladder 03/02/2018 Overview (10/07/2022): Myrbetriq was too expensive 02/2018. Failed Ditropan - dry mouth. Last Assessment & Plan: Continue VESIcare. B12 deficiency 09/01/2017 Overview (10/07/2022): Last Assessment & Plan: Continue supplementation check level before next visit Anemia 09/01/2017 Overview (10/07/2022): Chronic disease B12, TSH normal 09/2021; Folate normal 08/2018, iron normal 08/2019 Last Assessment & Plan: Most likely due to anemia of chronic disease. B12, TSH currently normal. Folate and iron levels previously normal. Osteoporosis 09/01/2017 Overview (10/07/2022): Evenity for 12 months complete, and will plan on prolia afterwords. Last Assessment & Plan: Cannot use Prolia or Reclast until all oral issues resolved and healed. Call back at that time for Prolia order. Continue calcium vitamin-D and weight-bearing exercise. Bone density has improved after evenity. Calculus of gallbladder with out cholecystitis without obstruction 06/17/2017 Overview (10/07/2022): Last Assessment & Plan: Azra recently but still symptomatic, nausea slightly better Allergic rhinitis 06/09/2017 Overview (10/07/2022): Last Assessment & Plan: Recommended daily antihistamine including Claritin or Zyrtec [...] improved or any worsening in symptoms Tension type headache 06/09/2017 Overview (10/07/2022): Last Assessment & Plan: Recommended stress headaches to be the likely cause this considering correlation however considering her intermittent nausea only recommended Tylenol [id number] for pain alleviation in no ibuprofen or NSAIDs. Certainly relaxation techniques, exercise or all great for stress-induced headaches certainly massages especially near the neck region to assist with cervical strain related headaches. We will touch base with patient after treating her for allergic rhinitis and determine improvement in symptoms and need further management Acquired hypothyroidism 02/07/2017 Overview (10/07/2022): Half tablet Synthroid on Sundays otherwise full tablet otherwise Last Assessment & Plan: Patient is asymptomatic on current dose of levothyroxine and TSH free T4 are normal and we will repeat levels before next visit. History of bilateral knee arthroplasty 7 Raynaud's disease 01/23/2017 Overview (10/07/2022): Dizziness and diarrhea with amlodipine. Last Assessment & Plan: Stable without her amlodipine and side effects of dizziness and diarrhea completely resolved. Migraine headache 08/07/2016 Memory impairment 06/06/2015 Fibromyalgia 08/22/2014 Overview (10/07/2022): Fibromyalgia Sensory neuropathy 08/22/2014 Overview (10/07/2022): Sensory peripheral neuropathy Last Assessment & Plan: Stable on gabapentin. Systemic lupus erythematosus 08/22/2014 Overview (10/07/2022): SLE (systemic lupus erythematosus) LOUIE positive Ssa positive sm patient services technician ssb antidna and anti cardiolipins negative Joint pain and raynauds Last Assessment & Plan: Increase hydroxychloroquine to 200 mg bid, labs today, continue to monitor. Duloxetine increased to 60 mg daily for her chronic MSK pain. Cervical myelopathy 05/05/2014 Overview (10/07/2022): Last Assessment & Plan: No complaints today. Continue current pain medication. Primary hypertension 01/13/2014 Immunizations Immunization Administration Dates Next Due Pneumococcal Vaccine - 13 Valent 09/01/2017 Pneumococcal Vaccine Adult - 23 Valent 2,04/10/2014,03/31/2014 TDAP Vaccine 12/13/2016,11/23/2016 Zoster Vaccine Recombinant 01/04/2019,10/09/2018 Family History Medical History Relation Name Comments Asthma Brother 1 Chronic Obstructive Pulmonary Disease Brother 1 Lupus Brother 1 Thyroid Disease Brother 1 Asthma Brother 2 Edivory Migraines Brother 2 Edivory Osteoarthritis Brother 2 Edivory 03/04/23 cause of was cardio pulmonary arrest. Contributing factors asthma, chronic obstructive pulmonary disease and factor V leiden deficiency. Thyroid Disease Brother 2 Edivory No Known Problems Daughter 1 No Known Problems Daughter 2 Cancer Father Sacha lung Heart Disease Father Sacha AFib Hypertension Father Sacha Lung Cancer Father Sacha No Known Problems Maternal Grandfather Arthritis Maternal Grandmother Stroke Maternal Grandmother Heart Attack Mother Vickie Lupus Mother Vickie Migraines Mother Vickie Osteoarthritis Mother Vickie Rheumatoid Arthritis Mother Vickie Stroke Mother Vickie Thyroid Disease Mother Vickie No Known Problems Paternal Grandfather No Known Problems Paternal Grandmother Breast Cancer Sister 1 Noemy Valencia Jennings, [place] Cancer Sister 1 Noemy Valencia Michaela, Edward Lupus Sister 1 Noemy Valencia Michaela, Edward Osteoarthritis Sister 1 Noemy Valencianoa Jennings, Edward Lupus Sister 2 Michaela Migraines Sister 2 Michaela Thyroid Disease Sister 2 Michaela Breast Cancer Sister 3 Valencia Cancer Sister 3 Valencia Lupus Sister 3 Valencia Migraines Sister 3 Valencia Thyroid Disease Sister 3 Valencia Cancer Sister 4 Brain Migraines Sister 5 Noemy Thyroid Disease Sister 5 Noemy Relation Name Status Comments Brother 1 Brother 2 Edward Daughter 1 Alive Daughter 2 Alive Father Sacha Maternal Grandfather Maternal Grandmother Mother Vickie Paternal Grandfather Paternal Grandmother Sister 1 Noemy Valencia Michaela, Edward Alive Sister 2 Michaela Alive Sister 3 Valencia Alive Sister 4 Sister 5 Noemy Social History Tobacco Use Types Packs/Day Years Used Date Smoking Tobacco: Never Smokeless Tobacco: Never Tobacco Cessation:Counseling Given: Not Answered Alcohol Use Standard Drinks/Week Comments No 0 (1 standard drink = 0.6 oz pur e alcohol) [facility] Utilities Answer Date Recorded In the past 12 months has [employer] electric, gas, oil, or water company threatened to shut off services in your home? Patient declined 02/13/2024 Social Connection and Isolation Panel Answer Date Recorded In a typical week, how many times do you talk on the phone with family, friends, or neighbors? More than three times a week 02/13/2024 How often do you get togethe r with friends or relatives? Once a week 02/13/2024 How often do you attend [facility] or restorationist services? More than 4 times per year 02/13/2024 Do you belong to any clubs o r organizations such as yarsani groups, unions, fraternal or athletic groups, or school groups? Patient declined 02/13/2024 How often do you attend meet ings of the clubs or organizations you belong to? Patient declined 02/13/2024 Are you , , di vorced, , never , or living with a partner? 02/13/2024 AUDIT-C Answer Date Recorded Q1: How often do you have a drink containing alcohol? Never 02/13/2024 Q2: How many drinks containi ng alcohol do you have on a typical day when you are drinking? Patient does not drink Q3: How often do you have si x or more drinks on one occasion? Never 02/13/2024 Overall Financial Resource Strain (CARDIA) Answe r Date Recorded How hard is it for you to pa y for the very basics like food, housing, medical care, and heating? Patient declined 02/13/2024 PHQ-2 Answer Date Recorded Total Score - Questions 1-9 01/25 [facility] - Occupational Stress Questionnaire Answer Date Recorded Do you feel stress - tense, restless, nervous, or anxious, or unable to sleep at night because your mind is troubled all the time - these days? Patient declined 02/13/2024 Exercise Vital Sign Answer Date Recorde d On average, how many days pe r week do you engage in moderate to strenuous exercise (like a brisk walk)? Patient declined On average, how many minutes do you engage in exercise at this level? Patient declined 02/13/2024 Hunger Vital Sign Answer Date Recorded Within the past 12 months, y ou worried that your food would run out before you got the money to buy more. Patient declined Within the past 12 months, t he food you bought just didn't last and you didn't have money to get more. Patient declined PRAPARE - Transportation Answer Date Re corded In the past 12 months, has l ack of transportation kept you from medical appointments or from getting medications? Patient declined 02/13/2024 In the past 12 months, has l ack of transportation kept you from meetings, work, or from getting things needed for daily living? Patient declined 02/13/2024 Housing Stability Vital Sign Answer Albino e Recorded In the last 12 months, was t here a time when you were not able to pay the mortgage or rent on time? No 08/09/2023 In the last 12 months, how many places have you lived? 1 08/09/2023 In the last 12 months, was t here a time when you did not have a steady place to sleep or slept in a penitentiary (including now)? No 08/09/2023 Housing Stability Vital Sign Answer Albino e Recorded In the last 12 months, was t here a time when you were not able to pay the mortgage or rent on time? Patient declined 02/13/20 24 Number of Times Moved in the Last Year Not on fi le 02/13/2024 At any time in the past 12 m [facility], were you homeless or living in a penitentiary (including now)? Patient declined 02/13/2024 Sexually Active Control Partners Comments Not Currently Female Comments No Sex and Gender Information Value Date Recorded Sex Assigned at Not on file Legal Sex Female 2:15 PM AGRICULTURAL PRODUCE WASHER Gender Identity Not on file Sexual Orientation Not on file Last Filed Vital Signs Vital Sign Reading Time Taken Comments Blood Pressure 98/78 05/03/2024 2:12 PM AGRICULTURAL PRODUCE WASHER Pulse 58 05/03/2024 2:12 PM AGRICULTURAL PRODUCE WASHER Temperature 35.8 C (96.4 F) 05/03/2024 2:12 PM AGRICULTURAL PRODUCE WASHER Respiratory Rate 18 05/03/2024 2:12 PM AGRICULTURAL PRODUCE WASHER Oxygen Saturation 91% 05/03/2024 2:12 PM AGRICULTURAL PRODUCE WASHER Inhaled Oxygen Concentration - - Weight 88.6 kg (195 lb 4 oz) 05/03/2024 2:12 PM AGRICULTURAL PRODUCE WASHER Height 160 cm (5' 3) 05/03/2024 2:12 PM AGRICULTURAL PRODUCE WASHER Body Mass Index 34.59 05/03/2024 2:12 PM AGRICULTURAL PRODUCE WASHER Plan of Treatment Health Maintenance Due Date Last Done Comments Cologuard 1995 Immunochemical Fecal Occult Blood 1995 Respiratory Syncytial Virus (RSV) Immunization (Adult) (1 - Risk 60-74 years 1-dose series) 2010 Influenza Immunization (#1) 2025 Discussion re Stopping Mammograms 2025 Mammogram 07/21/2025 07/21/2024, 05/26, 05/21/2022, Additional history exists Td Immunization Every 10 Years (Adults With 1 Tdap) 12/13/2026 12/13/2016, 11/23/2016 DEXA Bone Density 01/04/2027 01/04/2025, , 12/21/2021, Additional history exists Colonoscopy 11/23/2030 11/23/2020, 0705/2020, 11/23/2020 Colorectal Cancer Screening 11/23/2030 Hepatitis C Virus (HCV) Screening Completed 08/03/2014, 07/28/2014 DTaP/Tdap/Td Immunization Discontinued 12/13/2016, 05/2016 Zoster Immunization Completed 01/04/2019, 9 SARS-COV-2 Immunization Discontinued 10/24/2020, 10/02 Pneumococcal Immunization (50+ years) Completed 10/01/2021, 09/01/2017, 04/10/2014, Additional history exists Pneumococcal Immunization Combined Discontinued 10/01/2021, 09/01/2017, 04/10/2014, Additional history exists Hepatitis B Immunization Aged Out No longer eligible based on patient's age to complete this topic Human Papillomavirus (HPV) Immunization Aged Out No longer eligible based on patient's age to complete this topic Meningococcal Immunization (ACWY) Aged Out No longer eligible based on patient's age to complete this topic Rotavirus Immunization Aged Out No lo nger eligible based on patient's age to complete this topic Procedures Procedure Name Priority Date/Time Associated Diagnosis Comments MAMMOGRAM BILATERAL GENERIC 05/21/2022 12:00 AM AGRICULTURAL PRODUCE WASHER BONE DENSITY GENERIC 12/21/2021 12:00 AM CDT HM COLONOSCOPY 11/23/2020 12:00 AM CDT HEPATITIS PANEL ACUTE (AHP) 08/03/2014 12:00 AM CDT from Last 3 Months or Most Recently Relevant to Health Maintenance Results * MAMMOGRAM BILATERAL MISCELLANEOUS (05/21/2022 12:00 AM AGRICULTURAL PRODUCE WASHER) 05/21/2022 us Provider Scan IMG MAMMO ORDERABLES Final Resul t Performing Organization Address [facility]/ZIP Co de Phone Number SCAN * HM COLONOSCOPY (11/23/2020 12:00 AM CDT) 11/23/2020 us Provider Scan PROCEDURE/MINOR SURGICAL ORDERAB LES Final Result SCAN * HEPATITIS PANEL ACUTE (AHP) (08/03/2014 12:00 AM CDT) 08/03/2014 us Provider Scan HEMATOLOGY ORDERABLES Final Resu lt NON-INTERFACED REFERENCE LABORATORIES from Last 3 Months or Most Recently Relevant to Health Maintenance Insurance [facility] Care Teams Printing Equipment Mechanic Apprentice Relationship Specialty Start Date End Date Ana Vences MD [address] [place] [id number] PCP - General Family Medicine 01/11/25 Maranda Ta APRN, LENDING ACTIVITIES SUPERVISOR [address] [facility] [place] [address] Nurse Practitioner Advanced Practice Nurse 11/18/22 Caute Hadley MD [address] [address] Consulting Physician Colon and Rectal Surgery 11/10/23
[2025-01-26 13:41] LABS: Add Urine Microscopic? YES; Appearance Urine Cloudy (Clear); Glucose Urine UA Negative (Negative); Leukocyte Esterase Ur 3+ LEU/UL (Negative); Nitrate Urine Negative (Negative); Non Pathogenic Casts 0-2; Specific Grav Ur 1.009 (1.001-1.035)
[2025-01-26 13:50] LABS: INR 0.9; Partial Thromboplastin Time 25.0 Seconds (22.3-36.8); Prothrombin Time 12.5 Seconds (11.1-14.7)
[2025-01-26 13:56] LABS: Anion Gap 6 mmol/L (4-12); Blood Urea Nitrogen 11 mg/dL (7-17); Calcium 8.8 mg/dL (8.4-10.2); Carbon Dioxide 27 mmol/L (22-30); Chloride 98 mmol/L (98-107); Estimated Glomerular Filt Rate > 60; Glucose 84 mg/dL (65-110); Potassium 4.0 mmol/L (3.4-5.0); Sodium 131 mmol/L (137-145)
== END 2025-01-26 11:59 | disposition home or self-care (01) ==
LOC: ANHSURGERY 12:05
PROVIDERS: Visit Provider Neurological Surgery
DX: G95.9 Disease of spinal cord, unspecified (principal); I10 Essential (primary) hypertension; Z01.818 Encounter for other preprocedural examination
CPT/HCPCS: 36415; 71046; 80048; 81001; 85027; 85610; 85730; 87077; 87086; 87186; 93005

== ENCOUNTER 2025-02-09 01:28 | Day surgery (SDC) | payer MEDICARE, SELFPAY ==
--- NOTE | 2025-01-26 11:58 | PC.NURSE ---
Report to the Outpatient Waiting Room, entrance under the green pavilion located off [facility], at time _6 AM on date __02/09/25 . Planned Procedure Time: __7:30 AM .? Time changes happen often and if your time is changed the preop area will call you the afternoon before. - You and your visitor will be asked to self-screen and do not enter if you have any COVID symptoms. Please call surgeon if you need to reschedule. - A mask is optional within the hospital at this time. Patients may have clear liquids (water, carbonated beverages, clear teas, apple juice) until 3 hours prior to surgery( 4:30 AM) with a maximum of 20 ounces. - No food from midnight until time of surgery and no smoking, or chewing tobacco (or any form of nicotine). No chewing gum, candy or mints. Take only the following medications with a SIP of water on the morning of surgery: _EYE DROP,LEVOTHYROXINE DO NOT STOP ANY OF YOUR OTHER PRESCRIPTION MEDICATIONS PRIOR TO SURGERY EXCEPT THE FOLLOWING Hold all vitamins and supplements for 3 days per anesthesiologist.LAST DOSE 02/05/25 Medications to discontinue per physician __HOLD ZEPBOUND 10 DAYS PRE OP PER ANESTHESIA LAST DOSE 01/29/25 HOLD MELOXICAM 7 DAYS PRE OP PER DR GUTIERRES LAST DOSE 02/01/25 Please no make-up, nail citizen of [place], hairspray, perfume, deodorant, or body powder the day of surgery.? No jewelry (including any body piercings) or valuables the day of surgery, leave them at home.? Please take a shower or bath the night before, or the morning of, surgery with an antibacterial soap.? Wear comfortable, loose fitting clothing.? Children are encouraged to wear pajamas. - Jewelry must be removed prior to entering the operating room.? Rings and piercings that are not removed may be cut off. - The hospital will not accept responsibility for valuables.? - Please leave all valuables, including medications, at home the day of surgery. If you are going home after surgery, a licensed wheat combine driver must drive you home.? - NO public transportation without another adult if you receive anesthesia. - We recommend that an adult stay with you for 24 hours following discharge. - We also recommend that you do not drive, make important decision, drink alcoholic beverages, or take any drugs that were not prescribed by your health care provider for at least 24 hours after your discharge time. For Pediatric surgeries, we recommend two adults accompany the child home. Follow any additional instructions given to you from your surgeon. VERBAL AND WRITTEN instructions given to ___PATIENT and asked if any additional questions and then verbalized understanding. Patient advised to call surgeon office or pre surgery nurse liaison [phone] if any additional questions.
[2025-01-26 12:09] VITALS: BMI 32.8
[2025-01-26 12:56] VITALS: BP 148/75; PULSE 63; RESP 18; TEMP 36.4; O2SAT 99
[2025-02-09] VITALS (14 sets, daily range): BP systolic 143–179; BP diastolic 41–96; PULSE 80–93; RESP 14–19; TEMP 35.9–36.9; O2SAT 95–100
--- NOTE | ~2025-02-09 | XR_ITS ---
EXAMINATION: XR fluoroscopy no charge DATE: 02/09/2025 09:41 INDICATION: Cervical laminectomy TECHNIQUE: 5 fluoroscopic images of the cervical spine were obtained during procedure performed by Dr. Albert. Radiologist was not present for the imaging or procedure. The amount of fluoroscopy time used during this procedure was 0.1 minutes. Total DAP was 0.073 Gycm^2. COMPARISON: None. FINDINGS: Initial image demonstrates instrumented C3-C4 anterior spinal fusion with anterior plate and screw fixation. The tip of a metallic instrument projects posterior to the spinous process of C2 and C3. Subsequent images demonstrate surgical instrumentation projecting over the posterior margins of the upper cervical spine. There is suggestion of C2 and C3 laminectomies however evaluation of the posterior elements is limited by overpenetration resulting from gas at the operative bed. IMPRESSION: 1. Fluoroscopy utilized during neurosurgical procedure at the upper cervical spine. See procedure note for further detail. Reviewed, dictated and finalized at location A. IMPRESSION: 1. Fluoroscopy utilized during neurosurgical procedure at the upper cervical sp ine. See procedure note for further detail.
[2025-02-09] MEDS: LACTATED RINGERS 1,000 ML 30 ML IV CONT ×2 (06:25→09:32)
[2025-02-09 06:49] LABS: Sodium 131 mmol/L (137-145)
--- NOTE | 2025-02-09 06:56 | WPDANESEPPF ---
Anes - Initial Pre Proc Eval Procedure: Operation Date: 02/09/25 07:30 Proposed Procedures p C2, C3 Cervical Laminectomy - Eusebia Albert MD Date/Time: 02/09/25 06:56 Surgeon: Eusebia Albert MD Pre Op Diagnosis: cervical myelopathy Patient Data Age: 74 Gender: F Height: 1.6 m Weight: 82.8 kg Last Vital Signs Temp 36.1 C L 02/09/25 06:00 Pulse 82 02/09/25 06:00 Resp 18 01/26/25 12:56 BP 143/65 H 02/09/25 06:00 Pulse Ox 100 02/09/25 06:00 O2 Del Method Room Air 02/09/25 06:00 Allergies Allergy/AdvReac Type Severity Reaction Status Date / Time adhesive tape Allergy BLISTERS Verified 01/26/25 12:12 dicyclomine Allergy Dry Eye Verified 01/26/25 12:12 egg Allergy Swelling Verified 01/26/25 12:12 lactose Allergy ABDOMINAL Verified 01/26/25 12:12 PAIN Home Medications ?Medication ?Instructions ?Recorded ?Confirmed ?Type amitriptyline 50 mg tablet 50 mg PO QHS 09/29/24 02/09/25 History duloxetine 60 mg capsule,delayed 60 mg PO HS 09/29/24 02/09/25 History release sprinkle hydroxychloroquine 200 mg tablet 200 mg PO BID 09/29/24 02/09/25 History (Plaquenil) levothyroxine 88 mcg capsule 88 mcg PO DAILY 09/29/24 02/09/25 History meloxicam 15 mg tablet 15 mg PO DAILY 09/29/24 02/09/25 History potassium chloride 20 mEq oral 20 meq PO DAILY 09/29/24 02/09/25 History packet (Klor-Con) solifenacin 10 mg tablet 10 mg PO DAILY 09/29/24 02/09/25 History hydrochlorothiazide 12.5 mg tablet 12.5 mg PO .COMPLEX 10/13/24 02/09/25 History cetirizine 10 mg capsule (All Day 10 mg PO PRN PRN allergy symptoms 01/26/25 01/26/25 History Allergy (cetirizine)) cyclosporine 0.05 % eye drops in a 1 drp EACH EYE Q12H 01/26/25 02/09/25 History dropperette (Restasis) gabapentin 300 mg capsule 300 mg PO HS 01/26/25 02/09/25 History tirzepatide (weight loss) 2.5 2.5 mg subcut WEEKLY 01/26/25 02/09/25 History mg/0.5 mL subcutaneous pen injector (Zepbound) Laboratory Tests 02/09/25 06:21 Sodium 131 L mmol/L (137-145) Patient hx anesthesia problems: post op nausea/vomiting Family hx anesthesia problems: none Results Review: All pre-operative results and documents have been reviewed as part of the pre-operative evaluation. [facility] Past Medical History Medical History (Updated 02/09/25 @ 06:58 by Daniel Charles DO) History of breast cancer Hypertension Sjogren's disease Rheumatoid arthritis Arthritis Raynauds disease Lupus Thyroid disorder Surgical History Surgical History (Updated 02/09/25 @ 06:58 by Daniel Charles DO) History of cholecystectomy Social History Social History (Updated 01/13/25 @ 13:28 by Justyna Griffith CMA) Smoking status: Never smoker Alcohol intake: never Substance use: never Substance use type: does not use Do You Feel Safe in your Home?: Yes Lack of Food: Never True Current Housing: I Have Housing Concerned About Future Housing: No Difficulty Paying Gas/Electric Bills: No Difficulty Paying for Meds: YES Currently Unemployed: No Education: Associate Degree Difficulty w/ Childcare or Family Care: No Living arrangements: alone Spiritual care concerns: No Anes - Eval Final PreProcedure Day of Procedure 02/09/25 06:56 Patient weight: obese Heart: regular rate and rhythm Lungs: clear to auscultation Airway: Mallampati scale (very poor ROM in neck - glidescope) class III Neurological: alert and oriented Last oral intake: >/= 8 hours ASA classification: III Emergent: no Anesthetic plan: proceed Anesthesia type and monitoring: general ETT and standard monitoring Results Review: All pre-operative results and documents have been reviewed as part of the pre-operative evaluation. Informed Consent: The patient's anesthetic plan and its attendant risks and benefits were discussed with the patient/family/POA. Questions were solicited and answers provided to the satisfaction of the patient/family/POA.
--- NOTE | 2025-02-09 07:15 | WPDHPUPDATE1 ---
History and Physical Update Update Date/Time: 02/09/25 07:15 History and Physical has been reviewed, including an updated exam of the patient. There are NO changes in the patient's condition. Risks, benefits, and alternatives have been discussed and questions answered. Patient agrees to proceed with procedure.
[2025-02-09] MEDS: ceFAZolin 2 GM in SODIUM CHLORIDE 0.9% IV 50 ML 100 ML IVPB ×3 (07:31→21:42)
--- NOTE | 2025-02-09 09:34 | PM.OP ---
Procedure Note - Brief Procedure Note - Brief Date of procedure: 02/09/25 cervical myelopathy Procedure performed: C2, partial C3 laminectomies Surgeon: Eusebia Albert MD Zipper Repairer: Raquel Anesthesia: GETA Findings: Spinal cord decompressed without complication Estimated blood loss (mL): 20 Drains: No Packing: No Pathology: None sent Complications: None Condition: Stable Disposition: PACU
[2025-02-09] MEDS: fentaNYL CITRATE INJ (*CRX) 100 MCG/2 ML VIAL 25 MCG IV PUSH ×5 (09:43→10:15)
[2025-02-09] MEDS: MIDAZOLAM HCL (*CRX) 2 MG/2 ML VIAL 1 MG IV PUSH (10:07)
--- NOTE | 2025-02-09 10:35 | P.OP_ITS ---
Procedure Note - Detailed Date of Procedure 02/09/25 Pre-op Diagnosis cervical myelopathy Post-op Diagnosis Same Procedure Performed 1. C2 and partial C3 laminectomies 2. Use of microscope for microsurgical dissection 3. Use of c-arm for fluoroscopy Surgeon Eusebia Albert MD Anesthesia General Description of Procedure The patient was brought to the operating room where endotracheal anesthesia was induced. The [place] headholder was applied, and the patient was transferred to the operating table in the prone position. The head was secured to the bed. All pressure points were padded. The C-arm was used to evaluate the planned incision. The planned surgical site was prepped and draped in usual sterile fa shion. Time out was conducted, and local anesthesia was injected. A 10-blade scalpel was used to make the incision. The subcutaneous tissue was dissected with the bovie until the spinous processes were encountered. Self- retaining retractors were placed. A clamp was placed on a spinous process which was confirmed to be the C2 level with the C-arm. The muscles were elevated in a subperiosteal fashion to expose the laminae of C2 and C3 bilaterally. The microscope was draped and brought into the field. The spinous process of C2 was removed with a Leksell. Troughs were drilled through the laminae bilaterally at C2 and the superior aspect of C3. The bone was removed with a Leksell. The remaining bone was thinned with the drill until the ligamentum flavum was exposed. A currette was used to separate the ligament from the lamina which was removed with a kerrison. The superior aspect of C3 was removed as well until the dura felt decompressed. The ligamentum was elevated from the dura and removed. The edges of the decompression were explored to ensure adequate dural decompression. Floseal and cottonoid patties were placed into the dural defect for hemostasis. The muscle was approximated with 0 vicryl. The fascia was closed with 0 vicryl as well. The dermis was closed with 2-0 and 3-0 vicryl. The skin was closed with subcuticular 4-0 monocryl followed by placement of Dermabond. The patient was then removed from the [place] headholder and returned supine. The patient was extubated and transferred to the PACU in stable condition. Billing codes: 75193, 74616 Estimated Blood Loss 20 Drains No Packing No Pathology None sent Complications None Condition Stable Disposition PACU [facility] Billing Surgery - Charge Forward: Surgery Billing
[2025-02-09] MEDS: oxyCODONE HCL (*CRX) 5 MG TAB IR 10 MG PO (12:14)
[2025-02-09] MEDS: ACETAMINOPHEN 500 MG TABLET 1000 MG PO ×3 (12:14→23:23)
--- NOTE | 2025-02-09 12:40 | PC.NURSE ---
This patient, Jud Massey, was admitted to [facility] Surg Room 309-01 at 1240. Patient/family oriented to hospital policies and general routines including ID bracelet, bed and alarms, visiting hours, pain management, procedures, bathroom and other care routines, personal items, smoking policy, room service/diet, and visiting hours. Information on how to activate the Rapid Response Team has been discussed. Patient/Family are encouraged to report perceived risks to care and to ask questions if they do not understand what they are told or what they should do.
[2025-02-09] MEDS: ONDANSETRON INJ 4 MG/2 ML VIAL IV PUSH ×2 (14:04→23:44)
[2025-02-09] MEDS: HYDROXYCHLOROQUINE SULFATE 200 MG TABLET PO (17:15)
[2025-02-09] MEDS: SODIUM CHLORIDE 0.9% IV 1,000 ML 100 ML IV CONT ×2 (18:30→23:23)
[2025-02-09] MEDS: PROMETHAZINE HCL 25 MG/ML AMPUL 12.5 MG IV PUSH (18:34)
[2025-02-09] MEDS: HYDROmorphone HCL INJ (*CRX) 1 MG/ML SYR IV PUSH (18:43)
--- NOTE | 2025-02-09 21:38 | PC.NURSE ---
PT INCREASINGLY DISORIENTED, CONTINUES TO CLIMB OUT OF BED AND SET OFF ALARM. DECISION WAS MADE TO MOVE PATIENT CLOSER TO NURSES STATION FOR CLOSER OBSERVATION AND FALL PREVENTION. PT MOVED FROM 309 TO 305-1. BELONGINGS TRANSFERRED WITH PT AND PLACED IN CLOSET.
[2025-02-10] MEDS: AMITRIPTYLINE HCL 25 MG TABLET 50 MG PO (03:01)
[2025-02-10] MEDS: GABAPENTIN 300 MG CAPSULE PO (03:01)
[2025-02-10] MEDS: DULoxetine HCL 60 MG CAPSULE.DR PO (03:02)
[2025-02-10] MEDS: ceFAZolin 2 GM in SODIUM CHLORIDE 0.9% IV 50 ML 100 ML IVPB ×2 (05:01→14:10)
[2025-02-10] MEDS: ACETAMINOPHEN 500 MG TABLET 1000 MG PO ×2 (05:02→10:01)
[2025-02-10 05:03] VITALS: BP 142/55; PULSE 87; RESP 16; TEMP 36.1; O2SAT 96
[2025-02-10] MEDS: LEVOTHYROXINE SODIUM 88 MCG TABLET PO (05:32)
[2025-02-10 08:35] VITALS: BP 144/63; PULSE 84; RESP 16; TEMP 36.3; O2SAT 98
[2025-02-10] MEDS: LORATADINE 10 MG TABLET PO (09:55)
[2025-02-10] MEDS: DOCUSATE SODIUM 100 MG CAPSULE PO (09:55)
[2025-02-10] MEDS: POTASSIUM CHLORIDE 20 MEQ PACKET (FOR LIQUID) PO (09:55)
[2025-02-10] MEDS: SOLIFENACIN 5 MG TABLET 10 MG PO (09:55)
[2025-02-10] MEDS: HYDROXYCHLOROQUINE SULFATE 200 MG TABLET PO (09:55)
[2025-02-10] MEDS: cycloSPORINE 0.4 ML OPHTH SOLUTION 1 DROP EACH EYE (09:56)
--- NOTE | 2025-02-10 13:05 | P.PNNEUSUR_ITS ---
Progress Note: A&P Assessment and Plan (1) Cervical myelopathy: Code(s): G95.9 - Disease of spinal cord, unspecified Status: Acute (2) Status post laminectomy: Code(s): Z98.890 - Other specified postprocedural states Status: Acute Plan - She would like to discharge home today - We discussed wound care and activity precautions over the next 6 weeks - She will follow-up with me in clinic in about 2 weeks Subjective Date/time seen: 02/10/25 13:05 Interval history: She is overall doing well. She has expected neck pain. She developed quite a bit of confusion last night after receiving a dose of dilaudid. She states her pre- op left arm pain is gone, and her mobility is better. She worked with therapy today. She is tolerating oral intake and is voiding independently Review of Systems Review of Systems: All systems reviewed & are unremarkable except as noted in HPI and below Exam Narrative: Small amount of serosanguinous drainage on dressing Moving all extremities with good strength Sensation intact to light touch Objective Data Vital Signs Vital Signs: Vital Signs - 24 hr 02/09/25 14:00 02/09/25 15:03 02/09/25 15:08 Temperature 96.9 F L Pulse Rate 84 Respiratory Rate 18 Blood Pressure 179/76 H Pulse Oximetry 96 Oxygen Delivery Room Air Room Air 02/09/25 19:35 02/09/25 22:53 02/10/25 05:03 Temperature 97.4 F L 98.0 F 96.9 F L Pulse Rate 80 80 87 Respiratory Rate 16 17 16 Blood Pressure 160/66 H 154/67 H 142/55 H Pulse Oximetry 97 96 96 Oxygen Delivery 02/10/25 08:35 Temperature 97.4 F L Pulse Rate 84 Respiratory Rate 16 Blood Pressure 144/63 H Pulse Oximetry 98 Oxygen Delivery Intake/Output Intake/Output: Intake & Output 02/07/25 02/08/25 02/09/25 02/10/25 23:59 23:59 23:59 23:59 Intake Total 1418.3 600 Balance 1418.3 600 Meds/Results Medications: Active Medications Generic Name Dose Route Start Last Admin Trade Name Freq PRN Reason Stop Dose Admin Acetaminophen 1,000 mg 02/09/25 11:00 02/10/25 10:01 Acetaminophen 500 Mg Tablet PO 1,000 mg Q6H SAMUEL Administration Al Hydrox/Mg Hydrox/Simethicone 20 ml 02/09/25 11:00 Mag Hydrox/Al Hydrox/Simeth 30 Ml Udc PO Q4H PRN Indigestion/Heartburn Amitriptyline HCl 50 mg 02/09/25 21:00 02/09/25 21:48 Amitriptyline Hcl 25 Mg Tablet PO Not Given QHS SAMUEL Bisacodyl 10 mg 02/09/25 11:00 Bisacodyl 10 Mg Suppository RECTAL DAILY PRN Constipation Cyclobenzaprine HCl 10 mg 02/09/25 11:00 Cyclobenzaprine Hcl 10 Mg Tablet PO TID PRN Muscle Spasms Cyclosporine 1 drop 02/09/25 21:00 02/10/25 09:56 Cyclosporine 0.4 Ml Ophth Solution EACH EYE 1 drop Q12HR SAMUEL Administration Docusate Sodium 100 mg 02/09/25 21:00 02/10/25 09:55 Docusate Sodium 100 Mg Capsule PO 100 mg Q12HR SAMUEL Administration Duloxetine HCl 60 mg 02/09/25 21:00 02/09/25 21:49 Duloxetine Hcl 60 Mg Capsule.Dr PO Not Given HS SAMUEL Gabapentin 300 mg 02/09/25 21:00 02/09/25 21:49 Gabapentin 300 Mg Capsule PO Not Given HS SAMUEL Hydrochlorothiazide 12.5 mg 02/10/25 09:00 02/10/25 09:55 Hydrochlorothiazide 12.5 Mg Capsule PO 12.5 mg DAILY SAMUEL Administration Hydromorphone HCl 1 mg 02/09/25 18:23 02/09/25 18:43 Hydromorphone Hcl Inj (*Crx) 1 Mg/Ml Syr IV PUSH 1 mg Q2HR PRN Administration Breakthrough Pain Hydroxychloroquine Sulfate 200 mg 02/09/25 17:00 02/10/25 09:55 Hydroxychloroquine Sulfate 200 Mg Tablet PO 200 mg BID SAMUEL Administration Cefazolin Sodium 2 gm/ Sodium 50 mls @ 100 mls/hr 02/09/25 14:00 02/10/25 05:01 Chloride IVPB 100 mls/hr Q8HR SAMUEL Administration Sodium Chloride 1,000 mls @ 100 mls/hr 02/09/25 11:00 02/09/25 23:23 Normal Saline Iv IV CONT 100 mls/hr .Q10H SAMUEL Administration Levothyroxine Sodium 88 mcg 09/18/25 06:30 02/10/25 05:32 Levothyroxine Sodium 88 Mcg Tablet PO 88 mcg DAILY@0630 SAMUEL Administration Loratadine 10 mg 02/10/25 09:00 02/10/25 09:55 Loratadine 10 Mg Tablet PO 10 mg QAM SAMUEL Administration Ondansetron HCl 4 mg 02/09/25 11:00 02/09/25 23:44 Ondansetron Inj 4 Mg/2 Ml Vial IV PUSH 4 mg Q8H PRN Administration Nausea And Vomiting Oxycodone HCl 5 mg 02/09/25 11:00 Oxycodone Hcl (*Crx) 5 Mg Tab Ir PO Q4H PRN Pain Rated 4-6 Oxycodone HCl 10 mg 02/09/25 11:00 02/09/25 12:14 Oxycodone Hcl (*Crx) 5 Mg Tab Ir PO 10 mg Q4H PRN Administration Pain Rated 7-10 Potassium Chloride 20 meq 02/10/25 09:00 02/10/25 09:55 Potassium Chloride 20 Meq Packet (For Liquid) PO 20 meq DAILY SAMUEL Administration Promethazine HCl 12.5 mg 02/09/25 18:23 02/09/25 18:34 Promethazine Hcl 25 Mg/Ml Ampul IV PUSH 12.5 mg Q6HR PRN Administration Nausea And Vomiting Senna/Docusate Sodium 1 tab 02/09/25 11:00 Senna/Docusate Sodium Tablet PO HS PRN Constipation Solifenacin 10 mg 02/10/25 09:00 02/10/25 09:55 Solifenacin 5 Mg Tablet PO 10 mg QAM SAMUEL Administration Radiology Results: ITS Impressions Fluoroscopy 02/09/25 20:26 IMPRESSION: 1. Fluoroscopy utilized during neurosurgical procedure at the upper cervical spine. See procedure note for further detail.
== END 2025-02-10 14:55 | disposition home or self-care (01) ==
LOC: ANHSURGERY 05:45 → ANH3MEDSUR 11:05
PROVIDERS: Anesthesiology; Visit Provider Neurological Surgery
PROC: (CPT 63015; principal; 2025-02-09 07:30)
DX: G95.9 Disease of spinal cord, unspecified (principal); M06.9 Rheumatoid arthritis, unspecified; Z98.1 Arthrodesis status; M81.0 Age-related osteoporosis without current pathological fracture
CPT/HCPCS: 63015; 36415; 84295; 97161; 97166; 97530; 97535; 99199; J0690; A9270; J1100; J1171; J2003; J2250; J2371; J2405; J2550; J2704; J3010; J7030; J7120

== ENCOUNTER 2025-05-11 13:14 | Outpatient (CLI) | payer MEDICARE, SELFPAY ==
--- OUTSIDE RECORDS SUMMARY | 2025-05-10 11:15 | XMS_ITS | Encounter Summary ---
Author Organization [facility] Healthcare Address [address] [place] [address] Care Team Providers Care Radiology Transporter Name Role Phone Ana Vences MD Primary Care Provider [phone] Reason for Visit * Reason Comments Follow-up 6 Week Follow Up Encounter Details Date Type Department Care Team ([facility] st Contact Info) Description 05/10/2025 11:15 AM GLASS DECORATOR Office Visit [facility] at [address] [place] [address] Ana Vences MD [address] [place] [address] [address] [place] [address] Acquired hypothyroidism (Primary Dx) Social History Tobacco Use Types Packs/Day Years Used Date Smoking Tobacco: Never Smokeless Tobacco: Never Tobacco Cessation:Counseling Given: Not Answered Alcohol Use Standard Drinks/Week Comments Never 0 (1 standard drink = 0.6 oz pur e alcohol) PHQ-2 Answer Date Recorded PHQ-2 Total Score (If total score is 3 or more points, staff should administer the PHQ-9) 0 05/10/2025 PHQ-9 Answer Date Recorded PHQ-9 Total Score 18 09/23/2024 AUDIT-C Answer Date Recorded Q1: How often do you have a drink containing alcohol? Never 03/15/2025 Q2: How many drinks containi ng alcohol do you have on a typical day when you are drinking? Patient does not drink Q3: How often do you have si x or more drinks on one occasion? Never 03/15/2025 Comments No Sex and Gender Information Value Date Recorded Sex Assigned at Not on file Legal Sex Female 3:36 AM GLASS DECORATOR Gender Identity Not on file Sexual Orientation Not on file Occupation Industry Job Start Date Job End Date Retired Not on file Not on file Not on file documented as of this encounter Last Filed Vital Signs Vital Sign Reading Time Taken Comments Blood Pressure 175/99 05/10/2025 11:50 AM GLASS DECORATOR Pulse 82 05/10/2025 11:50 AM GLASS DECORATOR Temperature - - Respiratory Rate 16 05/10/2025 11:50 AM GLASS DECORATOR Oxygen Saturation 95% 05/10/2025 11:50 AM GLASS DECORATOR Inhaled Oxygen Concentration - - Weight 77.4 kg (170 lb 9.6 oz) 05/10/2025 11:50 AM GLASS DECORATOR Height 160 cm (5' 2.99) 05/10/2025 11:50 AM GLASS DECORATOR Body Mass Index 30.23 05/10/2025 11:50 AM GLASS DECORATOR documented in this encounter Functional Status * In the past year, patient experienced: Question Answer Date of Assessment Author One or more falls in the last year 0 05/10/2025 11:53 AM GLASS DECORATOR Noreen Ocampo MA * BP Location Answer Date of Assessment Author Left arm 05/10/2025 11:50 AM GLASS DECORATOR Noreen Ocampo MA * BP Location Answer Date of Assessment Author Left arm 05/10/2025 11:50 AM GLASS DECORATOR Noreen Ocampo MA documented as of this encounter Miscellaneous Notes * Assessment & Plan Note - Ana Vences MD - 05/10/2025 11:15 AM GLASS DECORATOR Associated Problem(s): Acquired hypothyroidism Orders: TSH; Future S DECORATOR documented in this encounter Plan of Treatment Upcoming Encounters Date Type Department Care Team (Late st Contact Info) Description 07/06/2025 11:00 AM GLASS DECORATOR Hospital Encounter [address] [address] Jeffry Morris MD [address] [place] [address] 07/06/2025 11:00 AM GLASS DECORATOR - 07/06/2025 11:30 AM GLASS DECORATOR Surgery [address] [address] Jeffry Morris MD [address] [place] [address] COLONOSCOPY Scheduled Procedures Name Priority Associated Diagnoses Date/Ti wa COLONOSCOPY Screening for colon cancer 07/06/2025 11:00 AM GLASS DECORATOR documented as of this encounter Visit Diagnoses Diagnosis Screening for colon cancer- Primary Special screening for malignant neoplasms, colon Acquired hypothyroidism- Primary Unspecified hypothyroidism Screening for colon cancer Special screening for malignant neoplasms, colon documented in this encounter Discontinued Medications Medication Sig Discontinue Reason Start Date End Da te cyclobenzaprine (FLEXERIL) 10 mg tablet TAKE 1 TABLET BY MOUTH THREE TIMES DAILY NEEDED FOR MUSCLE SPASM FOR 10 DAYS Patient Reported 02/10/2025 05/10/2025 oxyCODONE (ROXICODONE) 5 mg immediate release tablet Take by mouth every 8 (eight) hours as needed Patient Reported 02/24/2025 05/10/2025 documented as of this encounter Care Teams Radiology Transporter Relationship Specialty Start Date End Date Ana Vences MD [address] [place] [address] PCP - General Family Medicine 07/06/24 documented as of this encounter
--- OUTSIDE RECORDS SUMMARY | 2025-05-10 13:05 | XMS_ITS | Encounter Summary ---
Author Organization [facility] Healthcare Address [address] [place] [address] Care Team Providers Care Billiard Table Repairer Name Role Phone Ana Vences MD Primary Care Provider [phone] Encounter Details Date Type Department Care Team (Late st Contact Info) Description 05/10/2025 1:05 PM LOFT WORKER APPRENTICE Lab [facility] [address] [place] [address] Arrived Social History Tobacco Use Types Packs/Day Years [...] on file Legal Sex Female 3:36 AM LOFT WORKER APPRENTICE Gender Identity Not on file Sexual Orientation Not on file Occupation Industry Job Start Date Job End Date Retired Not on file Not on file Not on file documented as of this encounter Functional Status * In the past year, patient experienced: Question Answer Date of Assessment Author One or more falls in the last year 0 05/10/2025 11:53 AM LOFT WORKER APPRENTICE Noreen Ocampo MA * BP Location Answer Date of Assessment Author Left arm 05/10/2025 11:50 AM LOFT WORKER APPRENTICE Noreen Ocampo MA * BP Location Answer Date of Assessment Author Left arm 05/10/2025 11:50 AM LOFT WORKER APPRENTICE Noreen Ocampo MA documented as of this encounter Plan of Treatment Upcoming Encounters Date Type Department Care Team (Late st Contact Info) Description 07/06/2025 11:00 AM LOFT WORKER APPRENTICE Hospital Encounter [address] [address] Jeffry Morris MD 4 [facility] [address] [place] [id number] 07/06/2025 11:00 AM LOFT WORKER APPRENTICE - 07/06/2025 11:30 AM LOFT WORKER APPRENTICE Surgery [address] [address] Jeffry Morris MD [address] [place] [address] DR [address] [place], [place] [address] [address] COLONOSCOPY Scheduled Procedures Name Priority Associated Diagnoses Date/Ti me COLONOSCOPY Screening for colon cancer 07/06/2025 11:00 AM LOFT WORKER APPRENTICE documented as of this encounter Procedures Procedure Name Priority Date/Time Associated Diagnosis Comments URINALYSIS AND REFLEX TO MICROSCOPIC Routine 05/10/2025 1:13 PM LOFT WORKER APPRENTICE URINALYSIS, MICROSCOPIC ONLY Routine 05/10/2025 1:13 PM LOFT WORKER APPRENTICE EGFR Routine 05/10/2025 1:12 PM LOFT WORKER APPRENTICE DIFFERENTIAL AUTO Routine 05/10/2025 1:1 2 PM LOFT WORKER APPRENTICE CBC WITH AUTO DIFFERENTIAL Routine 05/10/2025 1:12 PM LOFT WORKER APPRENTICE ERYTHROCYTE SEDIMENTATION RATE Routine 05/10/2025 1:12 PM LOFT WORKER APPRENTICE CRP (ACUTE PHASE) Routine 05/10/2025 1:1 2 PM LOFT WORKER APPRENTICE TSH Routine 05/10/2025 1:12 PM LOFT WORKER APPRENTICE PHOSPHORUS Routine 05/10/2025 1:12 PM LOFT WORKER APPRENTICE COMPREHENSIVE METABOLIC PANEL Routine 05/10/2025 1:12 PM LOFT WORKER APPRENTICE documented in this encounter Results * (ABNORMAL) Urinalysis, microscopic only (05/10/2025 1:13 PM LOFT WORKER APPRENTICE) WBC, ur 21-50(A) 0 - 5 /HPF RBC, ur 0-2 0 - 2 /HPF [facility] (KIM) Epithelial cells, squamous, ur 1-5 0 - 5 /HPF [facility] (KIM) Bacteria, ur 2+(A) [facility] (KIM) Mucous, ur Present(A) [facility] (KIM) Hyaline casts, ur 6-10 0 - 10 /LPF [facility] (KIM) Urine 05/10/2025 1:13 PM LOFT WORKER APPRENTICE 05/10/2025 2:21 PM LOFT WORKER APPRENTICE us Hipolito Beatty MD LAB URINE ORDERABLES Final Res ult [facility] (KIM) 1 [facility] Department [place] [address] * (ABNORMAL) Urinalysis reflex to microscopic (05/10/2025 1:13 PM LOFT WORKER APPRENTICE) Color, ur Yellow Yellow Clarity, ur Turbid(A) Clear [facility] (KIM) Specific gravity, ur 1.009 1.003 - 1.030 [facility] (KMI) pH, urine 6.0 [facility] (KIM) Comment: Interpretive Data U rine pH is affected by diet, medications, systemic acid-base disturbances, and renal tubular function. pH may affect urinary stone formation. For example, urine pH below 6.0 may help reduce the tendency for calcium phosphate stones and pH greater than 6.0 may reduce the tendency for uric acid stone formation. Source: [facility] [employer] Current Interpretive Data was last revised on 2017 Protein, ur ql Trace Negative [facility] (KIM) Glucose, ur ql Negative Negative [facility] (KIM) Ketones, ur Negative Negative [facility] (KIM) Bilirubin, ur Negative Negative [facility] (KIM) Blood, ur Trace(A) Negative [facility] (KIM) Urobilinogen, ur 2.0(A) <2.0 mg/dL [facility] (KIM) Nitrite, ur Negative Negative [facility] (KIM) Leukocyte esterase, ur 4+(A) Negative [facility] (KIM) UA reflex comment Reflex to microscopic UA will be performed. [facility] (KIM) Urine 05/10/2025 1:13 PM LOFT WORKER APPRENTICE 05/10/2025 2:21 PM LOFT WORKER APPRENTICE us Hipolito Beatty MD LAB URINE ORDERABLES Final Res ult [facility] (KIM) 1 [facility] Department [place] [address] * eGFR (05/10/2025 1:12 PM LOFT WORKER APPRENTICE) eGFR 61 >=60 mL/min/1. 73 m2 Comment: Interpretive Data Reference Interval Normal >/= 90 mL/min/1.73m2 Mildly decreased* 60 - 89 mL/min/1.73m2 Mildly to moderately decreased 45 - 59 mL/min/1.73m2 Moderately to severely decreased 30 - 44 mL/min/1.73m2 Severely decreased 15 - 29 mL/min/1.73m2 Kidney Failure < 15 mL/min/1.73m2 *Relative to young adult level Estimated glomerular filtration rate is determined by the 2020 CKD-EPI equation recommended by the National Kidney Foundation (A Unifying Approach to GFR Estimation: Recommendations of the NKF-ASK Task Force on Reassessing the Inclusion of Race in Diagnosing Kidney Disease, JASN 2020). The CKD-EPI equation should not be used for patients with unstable renal function and has not been validated in children and those over 70. Current interpretive data was last reviewed 2021. Blood 05/10/2025 1:12 PM LOFT WORKER APPRENTICE 05/10/2025 1:26 PM LOFT WORKER APPRENTICE Hipolito Beatty MD LAB BLOOD ORDERABLES Final Res ult EM[facility]N [facility] (DRUMS) 1 [facility] [place] [place] [address] * Phosphorus (05/10/2025 1:12 PM LOFT WORKER APPRENTICE) Phosphorus, pl 3.3 2.3 - 4.5 mg/dL Blood 05/10/2025 1:12 PM LOFT WORKER APPRENTICE 05/10/2025 1:26 PM LOFT WORKER APPRENTICE Hipolito Beatty MD LAB BLOOD ORDERABLES Final Res ult Performing Organization Address City/[facility]/ZIP Co de Phone Number EM[facility]N HY[facility] (DRUMS) 1 [facility] [place] [address] * (ABNORMAL) Differential, auto (05/10/2025 1:12 PM LOFT WORKER APPRENTICE) Neutrophil abs 4.69 1.50 - 6.50 K/cumm Imm gran abs 0.02 0.00 - 0.10 K/cumm [facility] (KIM) Lymphocyte abs 0.65(L) 0.80 - 3.30 K/cumm [facility] (KIM) Monocyte abs 0.38 0.20 - 0.80 K/cumm [facility] (KIM) Eosinophil abs 0.11 0.00 - 0.50 K/cumm [facility] (KIM) Basophil abs 0.05 0.00 - 0.10 K/cumm [facility] (KIM) Neutrophil pct 79.6 % [facility] (KIM) Comment: Interpretive Data Percent cell count reference ranges are not reported, since discordance with absolute values may lead to misinterpretation of CBC data. Current Interpretive Data was last revised on 2017. Imm gran pct 0.3 % [facility] (KIM) Comment: Interpretive Data Percent cell count reference ranges are not reported, since discordance with absolute values may lead to misinterpretation of CBC data. Current Interpretive Data was last revised on 2017. Lymphocyte pct 11.0 % [facility] (KIM) Comment: Interpretive Data Percent cell count reference ranges are not reported, since discordance with absolute values may lead to misinterpretation of CBC data. Current Interpretive Data was last revised on 2017. Monocyte pct 6.4 % [facility] (KIM) Comment: Interpretive Data Percent cell count reference ranges are not reported, since discordance with absolute values may lead to misinterpretation of CBC data. Current Interpretive Data was last revised on 2017. Eosinophil pct 1.9 % [facility] (KIM) Comment: Interpretive Data Percent cell count reference ranges are not reported, since discordance with absolute values may lead to misinterpretation of CBC data. Current Interpretive Data was last revised on 2017. Basophil pct 0.8 % [facility] (KIM) Comment: Interpretive Data Percent cell count reference ranges are not reported, since discordance with absolute values may lead to misinterpretation of CBC data. Current Interpretive Data was last revised on 2017. Blood 05/10/2025 1:12 PM LOFT WORKER APPRENTICE 05/10/2025 1:26 PM LOFT WORKER APPRENTICE us Hipolito Beatty MD LAB BLOOD ORDERABLES Final Res ult [facility] (KIM) 1 [facility] Department of Laboratories [place], [place] [id number] * (ABNORMAL) Comprehensive metabolic panel (05/10/2025 1:12 PM LOFT WORKER APPRENTICE) Sodium 135 135 - 145 mmol/L Potassium, pl 3.3 3.3 - 4.9 mmol/L [facility] (KIM) Chloride 98 97 - 110 mmol/L [facility] (KIM) CO2 26 22 - 32 mmol/L [facility] (KIM) Anion gap 11 2 - 15 mmol/L [facility] (KIM) BUN 9 6 - 25 mg/dL [facility] (KIM) Creatinine 0.97 0.60 - 1.10 mg/dL [facility] (KIM) Glucose 88 70 - 199 mg/dL [facility] (KIM) Comment: Interpretive Data Fasting glucose >/= 126 mg/dl is diagnostic for diabetes. Fasting is defined as no caloric intake for at least 8 hours. Fasting glucose between 100 mg/dl to 125 mg/dl is diagnostic of prediabetes. In a patient with classic symptoms of hyperglycemia or hyperglycemic crisis, a random glucose >/= 200 mg/dl is diagnostic for diabetes. In the absence of unequivocal hyperglycemia, results should be confirmed by repeat testing. The classification and Diagnosis of Diabetes Diabetes Care 2021; 46: S19-S40. Current interpretive data was last revised 2022. Calcium 9.4 8.5 - 10.3 mg/dL [facility] (KIM) Bilirubin, total 0.7 0.1 - 1.2 mg/dL [facility] (KIM) Protein, pl 6.9 6.5 - 8.5 g/dL [facility] (KIM) Albumin 4.1 3.5 - 5.0 g/dL [facility] (KIM) Alk phos 91 40 - 130 Units/L [facility] (KIM) ALT <5(L) 7 - 45 Units/L [facility] (KIM) AST 23 10 - 45 Units/L [facility] (KIM) Blood 05/10/2025 1:12 PM LOFT WORKER APPRENTICE 05/10/2025 1:26 PM LOFT WORKER APPRENTICE us iHpolito Beatty MD LAB BLOOD ORDERABLES Final Res ult [facility] (KIM) 1 [facility] Department [place] [address] * CBC with auto differential (05/10/2025 1:12 PM LOFT WORKER APPRENTICE) WBC 5.90 3.80 - 9.90 K/cumm Hgb 12.2 11.9 - 15.5 g/dL [facility] (KIM) Hct 37.3 35.6 - 45.5 % [facility] (KIM) Plt 338 150 - 400 K/cumm [facility] (KIM) MPV 9.5 9.1 - 12.3 fL [facility] (KIM) RBC 4.10 3.90 - 5.20 M/cumm [facility] (KIM) MCV 91.0 81.3 - 96.4 fL [facility] (KIM) MCH 29.8 27.1 - 33.3 pg [facility] (KIM) MCHC 32.7 32.3 - 35.7 g/dL [facility] (KIM) RDW CV 13.2 11.1 - 14.9 % [facility] (KIM) RDW SD 43.7 35.7 - 48.1 fL [facility] (KIM) NRBC abs 0.00 0.00 - 0.01 K/cumm [facility] (KIM) Blood 05/10/2025 1:12 PM LOFT WORKER APPRENTICE 05/10/2025 1:26 PM LOFT WORKER APPRENTICE Hipolito Beatty MD LAB BLOOD ORDERABLES Final Res ult Performing Organization Address City/[facility] Co de Phone Number EM[facility]N HY[facility] (KIM) 1 [facility] [place] [address] * Erythrocyte sedimentation rate (05/10/2025 1:12 PM LOFT WORKER APPRENTICE) Pathologist [facility] Erythrocyte sedimentation rate 11 1 - 30 mm/hr Blood 05/10/2025 1:12 PM LOFT WORKER APPRENTICE 05/10/2025 1:26 PM LOFT WORKER APPRENTICE Hipolito Beatty MD LAB BLOOD ORDERABLES Final Res ult [facility] (KIM) 1 [facility] [place] [address] * CRP (acute phase) (05/10/2025 1:12 PM LOFT WORKER APPRENTICE) CRP <3.0 <=10.0 mg/L Blood 05/10/2025 1:12 PM LOFT WORKER APPRENTICE 05/10/2025 1:26 PM LOFT WORKER APPRENTICE us Hipolito Beatty MD LAB BLOOD ORDERABLES Final Res ult Performing Organization Address City/[facility]/ZIP Co de Phone Number EMELYN HYATT (DRUMS) 1 [place] [address] * (ABNORMAL) TSH (05/10/2025 1:12 PM LOFT WORKER APPRENTICE) Thyroid Stimulating Hormone 21.20(H) 0.30 - 4.20 mcIUnit/mL Blood 05/10/2025 1:12 PM LOFT WORKER APPRENTICE 05/10/2025 1:26 PM LOFT WORKER APPRENTICE us Hipolito Beatty MD LAB BLOOD ORDERABLES Final Res ult Performing Organization Address City/[facility] Co de Phone Number EMELYN HYATT (DRUMS) 1 [facility] [place] [address] documented in this encounter Visit Diagnoses Not on filedocumented in this encounter Care Teams Billiard Table Repairer Relationship Specialty Start Date End Date Ana Vences MD 2 [facility] [address] [address] PCP - General Family Medicine 07/06/24 documented as of this encounter
--- NOTE | ~2025-05-11 | CT_ITS ---
EXAM/PROCEDURE: [id number] HISTORY: Preoperative planning COMPARISON: None available. TECHNIQUE: [place] preoperative planning left shoulder CT. 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 Degenerative changes also present throughout the thoracic spine. Small effusion may be present. IMPRESSION: Preoperative planning [place] protocol left shoulder CT examination demonstrating severe degenerative changes in the left shoulder. Advanced degenerative changes also seen in the visualized portions of the thoracic spine. Reviewed, dictated and finalized at location A. LD INSTALLER IMPRESSION: Preoperative planning [place] protocol left shoulder CT examination demonstrati ng severe degenerative changes in the left shoulder. Advanced degenerative serrano ges also seen in the visualized portions of the thoracic spine.
[2025-05-11 13:47] LABS: Hematocrit 37.3 % (37.0-47.0); Hemoglobin 12.3 g/dL (12.0-15.0)
[2025-05-11 14:05] LABS: Albumin Level 4.0 g/dL (3.5-5.1); Estimated Glomerular Filt Rate > 60
--- OUTSIDE RECORDS SUMMARY | 2025-05-11 15:27 | XMS_ITS | Encounter Summary ---
Author Organization [facility] Healthcare Address [address] [place] [address] Care Team Providers Care Academic Affairs Vice President Name Role Phone Luís Schaffer MD Primary Care Provider [phone] Nba Villatoro MD Primary Care Provider [phone] Chelsi Garcia MD Primary Care Provider [phone] Ana Vences MD Primary Care Provider [phone] Reason for Visit * Reason Onset Date Comments Scheduling Appointments 12/03/2019 Called f or DEXA appointment reminder; no answer Encounter Details Date Type Department Care Team ([facility] Contact Info) Description 12/03/2019 Telephone [facility] [address] [place] [id number] Dontae Betancourt RT Scheduling Appointments (Called for [...] on file Legal Sex Female 3:36 AM SUPPLY COORDINATOR Gender Identity Not on file Sexual Orientation Not on file Occupation Industry Job Start Date Job End Date Retired Not on file Not on file Not on file documented as of this encounter Plan of Treatment Upcoming Encounters Date Type Department Care Team (Late st Contact Info) Description 07/06/2025 11:00 AM SUPPLY COORDINATOR Hospital Encounter [address] [address] Jeffry Morris MD 4 [facility] [address] [place] [address] 07/06/2025 11:00 AM SUPPLY COORDINATOR - 07/06/2025 11:30 AM SUPPLY COORDINATOR Surgery [address] [address] Jeffry Morris MD 4 [facility] [address] [place] [address] COLONOSCOPY Scheduled Procedures Name Priority Associated Diagnoses Date/Ti me COLONOSCOPY Screening for colon cancer 07/06/2025 11:00 AM SUPPLY COORDINATOR documented as of this encounter Visit Diagnoses Not on filedocumented in this encounter Additional Health Concerns Infection Onset Date Last Indicated Resolved Time COVID: Suspected 12/03/2021 12/03/2021 12/03/2021 1:59 PM CDT COVID19 12/03/2021 12/03/2021 12/13/2021 3:05 AM CDT COVID: Recovered Comment:Added based on recent COVID infection. 12/13/2021 12/21/2021 04/12/2022 3:[address] documented as of this encounter Care Teams Academic Affairs Vice President Relationship Specialty Start Date End Date Luís Schaffer MD PCP - General Internal Medicine 06/09/17 06/04/23 Nba Villatoro MD [address] [facility] [address] [address] PCP - General Family Medicine 06/05/23 03/28/24 Chelsi Garcia MD [address] [place] [address] PCP - General Family Medicine 03/29/24 07/05/24 Ana Vences MD [address] [place] [address] [place] [address] PCP - General Family Medicine 07/06/24 documented as of this encounter
--- OUTSIDE RECORDS SUMMARY | 2025-05-11 15:27 | XMS_ITS | Clinical Summary ---
Author Organization [facility] Address [address] [place] [address] Care Team Providers Care Pin Sorter And Bagger Name Role Phone Ana Vences MD Primary Care Provider [phone] Allergies Active Allergy Reactions Criticality Noted Date Comments Adhesive Tape-Silicones Rash,Hives Medium 05/02/2014 Dicyclomine Eye irritation Low 01/26/2025 Dicyclomine Hcl Other (See comments) Low 09/29/2023 Causes changes to vision and dry eye Egg Swelling Medium Lactose Diarrhea,Flatulence, Stom ach upset,Other (See comments) Low 06/26/2002 Morphine Hallucinations High 02/24/2025 Medications cycloSPORINE (RESTASIS MULTIDOSE) 0.05 % drops instill 1 drop by ophthalmic route every 12 hours into affected eye(s) 0 0 017 Active solifenacin (VESIcare) 10 mg tablet Take 1 tablet (10 mg total) by mouth daily 30 tablet 11 025 2025 Active hydroxychloroquin e (PLAQUENIL) 200 mg tablet Take 1 tablet (200 mg total) by mouth 2 (two) times a day 180 tablet 1 025 Active gabapentin (NEURONTIN) 300 mg capsule TAKE 1 CAPSULE BY MOUTH NIGHTLY 90 capsule 1 025 Active potassium chloride ER (Klor-Con M20) [...] or rash 453.6 g 4 025 Active tirzepatide, weight loss, (ZEPBOUND) 5 mg/0.5 mL solution vial Inject 0.5 mL (5 mg total) under the skin every 7 days 2 mL 025 Active hydroCHLOROthiazi de 12.5 mg tablet Take 1 tablet/capsul e (12.5 mg total) by mouth daily 90 tablet 025 Active hydroCHLOROthiazi de 12.5 mg tablet Take 1 tablet/capsul e (12.5 mg total) by mouth daily 90 tablet 025 Active amitriptyline (ELAVIL) 50 mg tablet Take 1 tablet by mouth nightly 90 tablet 1 025 Active tirzepatide, weight loss, (ZEPBOUND) 5 mg/0.5 mL solution vial Inject 0.5 mL (5 mg total) under the skin once a week 1 mL 1 025 Active levothyroxine (SYNTHROID) 75 mcg tabletIndications :Acquired hypothyroidism Take 1 tablet (75 mcg total) by mouth early childhood specialist before breakfast 90 tablet 3 025 Active meloxicam (MOBIC) 15 mg tablet Take 1 tablet by mouth once daily 90 tablet 025 Active meloxicam (MOBIC) 15 mg tablet Take 1 tablet by mouth once daily 90 tablet 1 025 2024 Discontinued cyclobenzaprine (FLEXERIL) 10 mg tablet TAKE 1 TABLET BY MOUTH THREE TIMES DAILY NEEDED FOR MUSCLE SPASM FOR 10 DAYS 025 2024 Discontinued(P atient Reported) oxyCODONE (ROXICODONE) 5 mg immediate release tablet Take by mouth every 8 (eight) hours as needed 025 2024 Discontinued(P atient Reported) Active Problems Problem Noted Date Diagnosed Date Obstructive sleep apnea 01/26/2025 Ingrown nail of great toe 01/19/2025 Assessment [...] -Referral to counseling sent Acute cystitis 07/06/2024 Assessment & Plan (03/18/2025 1:13 PM CDT): Symptomatic with increased frequency. UA suspicious for infection. Urine culture growing E Coli. Susceptible to Bactrim. -Will treat Orders: sulfamethoxazole-trimethoprim (BACTRIM) 800-160 mg per tablet; Take 1 tablet by mouth 2 (two) times a day for 3 days Urinary frequency 07/01/2024 Assessment & Plan (07/01/2024 9:12 AM CAR DRIVER): Having complaints of increased urinary frequency. -Will check UA -treat accordingly Class 1 obesity without seri ous comorbidity with body mass index (BMI) of 34.0 to 34.9 in adult 07/01/2024 Assessment & Plan (07/01/2024 9:10 AM CAR DRIVER): Discussed lifestyle modifications to help reduce weight including diet and exercise. Patient is interested in GLP-1 agonists. Discussed the risks and benefits of the medications. -Will check if patient is diabetic for better coverage. Nummular eczema 07/01/2024 Assessment & Plan (07/01/2024 9:08 AM CAR DRIVER): Exam consistent with nummular eczema at the left hip and periumbilical area. Failed OTC hydrocortisone steroid cream. -Will send Rx for triamcinolone 0.1% cream to be applied to the area twice daily. -consider more potent steroid if no improvement. -alternatively we can consider biopsy in the future if no significant improvement. No diagnosis on [place] I 04/02/2023 Other chronic pain 04/02/2023 Lower extremity edema 01/21/2023 Assessment & Plan (07/01/2024 9:03 AM CAR DRIVER): Controlled with diuretics. Assessment & Plan (01/21/2023 3:21 PM CDT): Reduce salt in diet, decrease gabapentin to 300 mg nightly, increase hydrochlorothiazide to full tablet 12.5 mg daily. Try compression hose. Keep legs elevated. Try weight loss. Umbilical hernia 04/04/2022 Assessment & Plan (04/04/2022 4:27 PM CAR DRIVER): Small reducible and painless. Call back for [...] 05/08/2021 Assessment & Plan (05/08/2021 2:01 PM CAR DRIVER): Long-term use of high-risk medication requiring regular monitoring. Labs ordered, no s/s of med tox or infection. Encouraged to work with PCP to make sure all recommended cancer screens and vaccinations are complete. Avoid live-vaccines unless reviewed with crystal finisher first. Up to date with eye exams. Piriformis syndrome of right side 04/02/2021 Assessment & Plan (05/08/2021 2:04 PM CAR DRIVER): Link to home exercise plan provided. Patient [...] exercise. Assessment & Plan (04/04/2022 4:26 PM CAR DRIVER): Diet exercise and check lipids and LFTs [...] no benefit in the past. Trial of [place] with sedating side effects discussed and should not drive while using this medication. Risks of constipation also discussed. Gentle stretching exercises demonstrated and will refer for Physical therapy evaluation. Finally if no improvement, pain management referral. Arthritis of carpometacarpal (CMC) joint of righ t thumb 11/13/2020 Overview (11/13/2020): Added automatically from request for surgery [id number] Degenerative arthritis of di stal interphalangeal joint of ring finger of right hand 11/13/2020 Overview (11/13/2020): Added automatically from request for surgery [id number] Degenerative arthritis of pr oximal interphalangeal joint of middle finger of right hand 11/13/2020 Overview (11/13/2020): Added automatically from request for surgery [id number] Abdominal pain 10/18/2020 Overview (10/18/2020): Added automatically from request for surgery [id number] History of colonic polyps 10/18/2020 Overview (10/18/2020): Added automatically from request for surgery [id number] Microscopic hematuria 09/26/2020 Assessment & Plan (09/26/2020 [...] ibuprofen. Assessment & Plan (04/20/2020 8:20 PM CAR DRIVER): Pepcid p.r.n. Assessment & Plan (09/16/2018 11:21 PM CDT): Start ranitidine 150 mg p.o. B.i.d. And call back if no improvement for switching to PPI. Overactive bladder 03/02/2018 Overview (09/15/2018): Myrbetriq was too expensive 02/2018. Failed Ditropan - dry mouth. Assessment & Plan (03/18/2025 1:13 PM CDT): Known history. Previously controlled on Vesicare. Now having recurrence of symptoms. Suspect in the setting of UTI. In the past, Myrbetriq was too expensive for patient, and Oxybutynin caused stuart mouth. -Will treat UTI and reassess. -Continue Vesicare -Consider intravaginal estrogen vs Myrbetriq if continues to be symptomatic (Patient does have history of estrogen receptor breast cancer, intravaginal estrogen may not be the best choice) -Consider pelvic floor PT, declined by patient at this time Assessment & Plan (01/21/2023 3:19 PM CDT): [...] resolved. Assessment & Plan (04/04/2022 4:24 PM CAR DRIVER): Cannot use Prolia or Reclast until all [...] indefinitely. Assessment & Plan (04/20/2020 8:19 PM CAR DRIVER): Calcium, vitamin-D, weight-bearing exercise and refer for [...] yearly. Assessment & Plan (04/04/2022 4:26 PM CAR DRIVER): Continue supplementation check level before next visit Assessment & Plan (10/01/2021 1:57 PM CDT): Continue B12 supplementation. Assessment & Plan (03/29/2021 10:24 AM CDT): Continue supplementation and check level before next visit Assessment & Plan (09/26/2020 6:31 PM CDT): Continue B12 supplementation check level in 1 year. Assessment & Plan (04/20/2020 8:20 PM CAR DRIVER): Level improved and will check once yearly. [...] 08/2019 Assessment & Plan (07/01/2024 9:02 AM CAR DRIVER): History of anemia. Likely of chronic disease. [...] EGD and colonoscopy recently recommended by her wheel loader operator. Hypokalemia 09/01/2017 Assessment & Plan (07/01/2024 9:03 AM CAR DRIVER): Prior history of hypokalemia, currently on KCl [...] that we can refer her to another wheel loader operator in another location. She is aware of [...] 06/17/2017 Assessment & Plan (07/16/2017 9:18 AM CAR DRIVER): Azra recently but still symptomatic, nausea slightly better Assessment & Plan (06/17/2017 9:27 AM CAR DRIVER): This is a 67-year-old female with symptomatic [...] 06/17/2017 Assessment & Plan (07/16/2017 9:19 AM CAR DRIVER): Last egd 2007, took pantoprazole until 2 years ago (worried about potential side effects of residential use) but denies much of reflux- only sporadically H/o gastric bypass Allergic rhinitis 06/09/2017 Assessment & Plan (06/09/2017 3:05 PM CAR DRIVER): Recommended daily antihistamine including Claritin or Zyrtec [...] 06/09/2017 Assessment & Plan (06/09/2017 3:03 PM CAR DRIVER): Recommended stress headaches to be the likely cause this considering correlation however considering her intermittent nausea only recommended Tylenol [id number] for pain alleviation in no ibuprofen or [...] otherwise full tablet otherwise Assessment & Plan (05/10/2025 12:19 PM CAR DRIVER): Orders: TSH; Future Assessment & Plan (03/18/2025 1:13 PM CDT): Takes synthroid 88 mcg daily. TSH remains low. Likely overtreated. -Will decrease dose to 75 mcg daily. Orders: levothyroxine (SYNTHROID) 75 mcg tablet; Take 1 tablet (75 mcg total) by mouth early childhood specialist before breakfast Assessment & Plan (09/28/2024 7:14 PM CDT): Takes synthroid 100 mcg daily. TSH remains low. Likely overtreated. -Will decrease dose to 88 mcg daily. Assessment & Plan (07/01/2024 9:01 AM CAR DRIVER): Takes synthroid 100 mcg daily. Last TSH was low. Dose may need to be adjusted. -Will check TSH Assessment & Plan (01/21/2023 3:18 PM CDT): Decrease Synthroid to half tablet on Sundays and full tablet otherwise and repeat TSH and free T4 before next visit Assessment & Plan (04/04/2022 4:26 PM CAR DRIVER): Patient is asymptomatic on current dose of [...] visit. Assessment & Plan (04/20/2020 8:17 PM CAR DRIVER): Patient is asymptomatic on current dose of [...] lupus erythematosus) LOUIE positive Ssa positive sm programming coordinator ssb antidna and anti cardiolipins negative Joint pain and raynauds Assessment & Plan (06/30/2024 10:24 AM CAR DRIVER): Taking hydroxychloroquine Sees Rheum at [facility]. Assessment & Plan (01/21/2023 3:19 PM CDT): Follow-up with crystal finisher as they direct. Assessment & Plan (05/08/2021 2:05 PM CAR DRIVER): Increase hydroxychloroquine to 200 mg bid, labs today, continue to monitor. Duloxetine increased to 60 mg daily for her chronic MSK pain. Assessment & Plan (03/29/2021 10:24 AM CDT): Follow-up with crystal finisher as they direct Assessment & Plan (09/26/2020 6:30 PM CDT): Follow-up with her crystal finisher as they direct. Assessment & Plan (04/20/2020 8:17 PM CAR DRIVER): Follow-up with crystal finisher as they direct. Assessment & Plan (09/23/2019 3:34 PM CDT): Follow-up with crystal finisher as they direct. Assessment & Plan (03/18/2019 10:30 AM CDT): Follow-up with crystal finisher as they direct. Assessment & Plan (09/16/2018 11:14 PM CDT): Follow-up with crystal finisher as they direct. Assessment & Plan (03/02/2018 6:16 PM CDT): Follow-up with her crystal finisher as they direct Assessment & Plan (09/01/2017 [...] amlodipine. Assessment & Plan (07/01/2024 9:00 AM CAR DRIVER): Taking Hydrochlorothiazide 12.5 mg. Controlled. -Continue current medication Assessment & Plan (01/21/2023 3:18 PM CDT): Pressure is well controlled on hydrochlorothiazide. Try increasing to full tablet daily for lower extremity swelling. Assessment & Plan (04/04/2022 4:24 PM CAR DRIVER): Well controlled on the current regimen. Avoidance [...] recommended. Assessment & Plan (04/20/2020 8:17 PM CAR DRIVER): Well controlled on the current regimen. Avoidance [...] recommended. Assessment & Plan (06/09/2017 3:04 PM CAR DRIVER): Slightly higher in office today than ideal. [...] 025 Assessment & Plan (07/16/2017 9:25 AM CAR DRIVER): Diarrhea since 2007, intermittent- she will have [...] exercise. Assessment & Plan (06/09/2017 2:51 PM CAR DRIVER): Recommended patient to continue to increase heart healthy diet with adequate fruits, vegetables, and plenty of water along with mild-moderate daily exercise as tolerated. Nausea 06/09/2017 09/23/2019 Assessment & Plan (07/16/2017 9:19 AM CAR DRIVER): egd as outpatient sb biopsies Assessment & Plan (06/09/2017 3:04 PM CAR DRIVER): Unable to determine exact cause of her [...] our office regarding this condition Age-related osteoporosis wit papito current pathological fracture 02/07/2017 09/01/2017 Healthcare maintenance 02/06/201703/02 Medication management 02/06/20172017 Morbid obesity 08/15/2016 03/02/2018 Overview (10/18/2016): Morbid obesity Encounters Date Type Department Care Team Description 05/10/2025 1:05 PM CAR DRIVER Lab [address] [address] Arrived 05/10/2025 11:15 AM CAR DRIVER Office Visit [facility] at [address] [phone] Ana Vences MD Acquired hypothyroidism (Primary Dx) 03/22/2025 Telephone [facility] Rheumatology at [facility] [address] [address] Diana Mcwilliams LOADER DEMOLDER cx appt 03/15/2025 1:45 PM CDT Office Visit [facility] at [address] [phone] Ana Vences MD Overactive bladder (Primary Dx); Acute cystitis without hematuria; Acquired hypothyroidism 03/01/2025 12:38 PM CDT - 03/01/2025 11:59 PM CDT Hospital Encounter [address] [address] Systemic lupus erythematosus, unspecified SLE type, unspecified organ involvement status (HCC) Discharge Disposition: Discharge to home or self care 03/01/2025 12:33 PM CDT - 03/01/2025 11:59 PM CDT Hospital Encounter [address] [address] Left shoulder pain, unspecified chronicity Discharge Disposition: Discharge to home or self care 03/01/2025 12:30 PM CDT Lab [address] [address] 03/01/2025 11:45 AM CDT Office Visit [facility] Sleep Medicine at [address] [place] [address] Ciera Rogers MD Insomnia, unspecified type (Primary Dx); Hypersomnia; Obesity, unspecified class, unspecified obesity type, unspecified whether serious comorbidity present from Last 3 Months Immunizations Immunization Administration Dates Next Due Influenza, Quadrivalent, Hig h Dose, Preservative Free, Intrr 12/24/2022(Deferred: Patient Refused) Influenza, Quadrivalent, Rec ombinant, Egg Free, Preservative Free, Intramuscular 03/02/2018 Influenza, Unspecified 05/10/2025(Deferr ed: Patient Refused),02/23/2021(Deferred: Patient Refused),09/26/2020(Deferred: Patient Refused),06/30/2020(Deferred: [...] GASTRIC BYPASS Gastric bypass OTHER SURGICAL HISTORY 01-Tipple Supervisor: Dr. Flor Posey OTHER SURGICAL HISTORY 02-Orthopedic [...] Date Comments Hypoactive thyroid Hypothyroidis m; Comments: [facility] 08/15/2016 - Ocular migraine Ocular migraine; Comments: [facility] 08/15/2016 - Hx Other Medical -Rheumatologi st Hx Other Medical 02-Orthopedic S urgeon Osteoarthritis Osteoarthritis; Comments: [facility] 08/15/2016 - Raynaud's disease Raynauds disea se; Comments: [facility] 08/15/2016 - GERD (gastroesophageal reflux disease) Chronic diarrhea Dysphagia occasional solid and liquids Fibrocystic breast Breast cancer (HCC) 1989 no chemo/rad iation Breast cyst Cataract 12/07/2009 Autoimmune disease 07/10/09 PONV (postoperative nausea a nd vomiting) Colon polyp Diverticulosis Fibromyalgia Sjogren's syndrome Anemia 05/26/1969 Oral pharyngeal candidiasis 03/04/2017 Obstructive sleep apnea 01/26/2025 Family History Medical History Relation Name Comments [...] file Legal Sex Female 3:36 AM CAR DRIVER Gender Identity Not on file Sexual Orientation [...] Comments Blood Pressure 175/99 05/10/2025 11:50 AM CAR DRIVER Pulse 82 05/10/2025 11:50 AM CAR DRIVER Temperature 36.5 C (97.7 F) 01/19/2025 10:55 AM CDT Respiratory Rate 16 05/10/2025 11:50 AM CAR DRIVER Oxygen Saturation 95% 05/10/2025 11:50 AM CAR DRIVER Inhaled Oxygen Concentration - - Weight 77.4 kg (170 lb 9.6 oz) 05/10/2025 11:50 AM CAR DRIVER Height 160 cm (5' 2.99) 05/10/2025 11:50 AM CAR DRIVER Body Mass Index 30.23 05/10/2025 11:50 AM CAR DRIVER Plan of Treatment Upcoming Encounters Date Type Department Care Team (Late st Contact Info) Description 07/06/2025 11:00 AM CAR DRIVER Hospital Encounter [address] [address] Jeffry Morris MD [address] [place] [address] [place] [address] 07/06/2025 11:00 AM CAR DRIVER - 07/06/2025 11:30 AM CAR DRIVER Surgery [address] [address] Jeffry Morris MD [address] [place] [address] [place] [address] COLONOSCOPY Scheduled Procedures Name Priority Associated Diagnoses Date/Ti me COLONOSCOPY Screening for colon cancer 07/06/2025 11:00 AM CAR DRIVER Health Maintenance Due Date Last Done Comments Colon Cancer Screening-Colonoscopy 02/23/2021 11/23/2020, 09/16/2017, 08/27/2004 Well Visit 65+ 01/22/2024 01/21/2023, 05/01/2022, 09/26/2020, Additional history exists Covid-19 Vaccine (3 - Pfizer risk series) 06/30/2025 10/24/2020, 10/02/2020 Postponed from 11/21/2020 (Patient declined, but will receive in the future) Depression Screening 05/10/2026 05/10/2025, 03/15/2025, 01/19/2025, Additional history exists Fall Risk Assessment 05/10/2026 05/10/2025, 03/15/2025, 01/19/2025, Additional history exists DTaP/Tdap/Td Vaccine (3 - Td or Tdap) 12/13/2026 12/13/2016, 11/23/2016 Osteoporosis Screening-Bone Density Scan 01/04/2027 01/04/2025, 12/21/2021, 12/06/2019, Additional history exists Influenza Vaccine Discontinued 03/29/2018, 03/02/2018 Zoster Vaccine Completed 01/04/2019, 10/09/2018 Colon Cancer Screening-CT Colonography Discontinued 11/23/2020, 09/16/2017, 08/27/2004 Colon Cancer Screening-DNA Stool Discontinued 11/23/2020, 09/16/2017, 08/27/2004 Colon Cancer Screening-FIT Discontinued 11/23, 09/16/2017, 08/27/2004 Colon Cancer Screening-Sigmoidoscopy Discontinued 11/23/2020, 09/16/2017, 08/27/2004 Pneumococcal vaccine 65+ Completed 022, 09/01/2017, 04/10/2014 Breast Cancer Screening-Mammogram Discontinued 07/21/2024, 06/10/2023, 05/21/2022, Additional history exists Hepatitis B Screening Completed 03/01/2025 Hepatitis C Screening Completed 03/01/2025, 015 Medical Devices Implanted Type Area Molecular Technologist Device Identifier Shelf Expiration Date Model / Serial / Lot 3m Bilateral : Knee 3m Bilateral : Lumbar-Sa cral Spine Description:Rods, screws, an d plate in lower lumbar 3m Cervical- Thoracic Spine Description:Screws and possi ble plate [employer] Ar-8978-Cp Internalbrace Kit Hand Wrist Set Implant Ligament Augmentation - [id number] Implanted:Qty: 1 on 11/28/2020 at [facility] [employer] [id number] 08/23/2025 GRIFFIN-8978-C P / / [id number] [employer] Ar-8978p Dx Swivelock Sl 3.5mm 8.5mm Fork Eyelet Encampment Suture Sterile - [id number] Implanted:Qty: 1 on 11/28/2020 at [facility] [employer] [id number] AR-8978P / / [employer] Ar-8725-24h Compression Ft 2.5mm 24mm Compression Self Tap Cannulated Hex 1.5 - [id number] Implanted:Qty: 1 on 11/28/2020 at [facility] [employer] AR-8725-2 4H / / Explanted Type Area Molecular Technologist Device Identifier Shelf Expiration Date Model / Serial / Lot [employer] 1600-962 Miracle .062in 9in 2 Trocar Wire Fixation - [id number] Explanted:Qty: 1 on 11/28/2020 at [facility] [employer] [id number] 08/25/2024 1600-962 / / [id number] Procedures Procedure Name Priority Date/Time Associated Diagnosis Comments URINALYSIS, MICROSCOPIC ONLY Routine 05/10/2025 1:13 PM CAR DRIVER URINALYSIS AND REFLEX TO MICROSCOPIC Routine 05/10/2025 1:13 PM CAR DRIVER EGFR Routine 05/10/2025 1:12 PM CAR DRIVER PHOSPHORUS Routine 05/10/2025 1:12 PM CAR DRIVER DIFFERENTIAL AUTO Routine 05/10/2025 1:1 2 PM CAR DRIVER COMPREHENSIVE METABOLIC PANEL Routine 05/10/2025 1:12 PM CAR DRIVER CBC WITH AUTO DIFFERENTIAL Routine 05/10/2025 1:12 PM CAR DRIVER ERYTHROCYTE SEDIMENTATION RATE Routine 05/10/2025 1:12 PM CAR DRIVER CRP (ACUTE PHASE) Routine 05/10/2025 1:1 2 PM CAR DRIVER TSH Routine 05/10/2025 1:12 PM CAR DRIVER XR SHOULDER LEFT 2 OR MORE VIEWS Schedule Routine, Read Routine (OP Routine) 03/01/2025 1:19 PM CDT Left shoulder pain, unspecified chronicity XR HAND RIGHT 2 VIEWS Schedule Routine, Read Routine (OP Routine) 03/01/2025 1:18 PM CDT Systemic lupus erythematosus, unspecified SLE type, unspecified organ involvement status (HCC) XR HAND LEFT 2 VIEWS Schedule Routine, Read Routine (OP Routine) 03/01/2025 1:18 PM CDT Systemic lupus erythematosus, unspecified SLE type, unspecified organ involvement status (HCC) XR FOOT RIGHT 2 VIEWS Schedule Routine, Read Routine (OP Routine) 03/01/2025 1:18 PM CDT Systemic lupus erythematosus, unspecified SLE type, unspecified organ involvement status (HCC) XR FOOT LEFT 2 VIEWS Schedule Routine, Read Routine (OP Routine) 03/01/2025 1:18 PM CDT Systemic lupus erythematosus, unspecified SLE type, unspecified organ involvement status (HCC) URINALYSIS, MICROSCOPIC ONLY Routine 03/01/2025 12:47 PM CDT URINE CULTURE Routine 03/01/2025 12:47 PM CDT URINALYSIS AND REFLEX TO MICROSCOPIC AND CULTURE Routine 03/01/2025 12:47 PM CDT KELLY-1 ANTIBODY Routine 03/01/2025 12:45 PM CDT SCL 70 ANTIBODIES Routine 03/01/2025 12: 45 PM CDT PATIENT SERVICE REPRESENTATIVE ANTIBODIES Routine 03/01/2025 12:45 PM CDT RICHARDSON ANTIBODIES Routine 03/01/2025 12:4 5 PM CDT SJOGRENS SYNDROME-B ANTIBODY Routine 03/01/2025 12:45 PM CDT SJOGRENS SYNDROME-A ANTIBODY Routine 03/01/2025 12:45 PM CDT EGFR Routine 03/01/2025 12:45 PM CDT PHOSPHORUS Routine 03/01/2025 12:45 PM CDT BILIRUBIN, DIRECT Routine 03/01/2025 12: 45 PM CDT DIFFERENTIAL AUTO Routine 03/01/2025 12: 45 PM CDT COMPREHENSIVE METABOLIC PANEL Routine 03/01/2025 12:45 PM CDT CBC WITH AUTO DIFFERENTIAL Routine 03/01/2025 12:45 PM CDT LOUIE QUALITATIVE WITH REFLEX TO LOUIE QUANTITATIVE Routine 03/01/2025 12:45 PM CDT CRP (ACUTE PHASE) Routine 03/01/2025 12: 45 PM CDT CYCLIC CITRUL PEPTIDE ANTIBODY, IGG Routine 03/01/2025 12:45 PM CDT RHEUMATOID FACTOR Routine 03/01/2025 12: 45 PM CDT ERYTHROCYTE SEDIMENTATION RATE Routine 03/01/2025 12:45 PM CDT TSH Routine 03/01/2025 12:45 PM CDT URIC ACID Routine 03/01/2025 12:45 PM CDT TB TEST, QUANTIFERON GOLD Routine 03/01/2025 12:45 PM CDT ALETHEA ANTIBODY EVALUATION WITH REFLEX Routine 03/01/2025 12:45 PM CDT HEPATITIS PANEL, ACUTE Routine 03/01/2025 12:45 PM CDT HEPATITIS B SURFACE ANTIBODY (IMMUNE STATUS) Routine 03/01/2025 12:45 PM CDT DEXA AXIAL SKELETON BONE DENSITY 1 OR MORE SITES Schedule Routine, Read Routine (OP Routine) 01/04/2025 1:13 PM CDT Age-related osteoporosis without current pathological fracture SCREENING MAMMOGRAM BILATERAL W [place] Schedule Routine, Read Routine (OP Routine) 07/21/2024 2:28 PM CAR DRIVER Screening mammogram, encounter for COLONOSCOPY 11/23/2020 9:58 AM CDT from Last 3 Months or Most Recently Relevant to Health Maintenance Results * (ABNORMAL) Urinalysis reflex to microscopic (05/10/2025 1:13 PM CAR DRIVER) Color, ur Yellow Yellow Clarity, ur Turbid(A) Clear [facility] (KIM) Specific gravity, ur 1.009 1.003 - 1.030 [facility] (KIM) pH, urine 6.0 [facility] (KIM) Comment: Interpretive Data U rine pH is affected by diet, medications, systemic acid-base disturbances, and renal tubular function. pH may affect urinary stone formation. For example, urine pH below 6.0 may help reduce the tendency for calcium phosphate stones and pH greater than 6.0 may reduce the tendency for uric acid stone formation. Source: [place] Checkr Current Interpretive Data was last revised on [...] Reflex to microscopic UA will be performed. [facility] (KIM) Urine 05/10/2025 1:13 PM CAR DRIVER 05/10/2025 2:21 PM CAR DRIVER Hipolito Beatty MD LAB URINE ORDERABLES Final Res ult Performing Organization Address [facility] Hospitals/[facility] Co de Phone Number EMELYN HYATT (BONDURANT) 1 [facility] [place] [address] * (ABNORMAL) Urinalysis, microscopic only (05/10/2025 1:13 PM CAR DRIVER) WBC, ur 21-50(A) 0 - 5 /HPF RBC, ur 0-2 0 - 2 /HPF [facility] (KIM) Epithelial cells, squamous, ur 1-5 0 - 5 /HPF [facility] (KIM) Bacteria, ur 2+(A) [facility] (KIM) Mucous, ur Present(A) [facility] (KIM) Hyaline casts, ur 6-10 0 - 10 /LPF [facility] (KIM) Urine 05/10/2025 1:13 PM CAR DRIVER 05/10/2025 2:21 PM CAR DRIVER Hipolito Beatty MD LAB URINE ORDERABLES Final Res ult Performing Organization Address City/[facility]/ZIP Co de Phone Number EMELYN HYATT (BONDURANT) 1 [facility] [place] [address] * eGFR (05/10/2025 1:12 PM CAR DRIVER) eGFR 61 >=60 mL/min/1. 73 m2 Comment: [...] last reviewed 2021. Blood 05/10/2025 1:12 PM CAR DRIVER 05/10/2025 1:26 PM CAR DRIVER us Hipolito Beatty MD LAB BLOOD ORDERABLES Final Res ult [facility] (KIM) 1 [facility] Department [place] [address] * (ABNORMAL) Differential, auto (05/10/2025 1:12 PM CAR DRIVER) Neutrophil abs 4.69 1.50 - 6.50 K/cumm [...] revised on 2017. Blood 05/10/2025 1:12 PM CAR DRIVER 05/10/2025 1:26 PM CAR DRIVER us Hipolito Beatty MD LAB BLOOD ORDERABLES Final Res ult [facility] (KIM) 1 [facility] [place] [address] * CBC with auto differential (05/10/2025 1:12 PM CAR DRIVER) WBC 5.90 3.80 - 9.90 K/cumm Hgb [...] RDW SD 43.7 35.7 - 48.1 fL [facility]N [facility] (KIM) NRBC abs 0.00 0.00 - 0.01 K/cumm [facility] ([place]) Blood 05/10/2025 1:12 PM CAR DRIVER 05/10/2025 1:26 PM CAR DRIVER Hipolito Beatty MD LAB BLOOD ORDERABLES Final Res ult EMELYN HYATT (BONDURANT) 1 [facility] [place] [address] * Erythrocyte sedimentation rate (05/10/2025 1:12 PM CAR DRIVER) Erythrocyte sedimentation rate 11 1 - 30 mm/hr Blood 05/10/2025 1:12 PM CAR DRIVER 05/10/2025 1:26 PM CAR DRIVER Hipolito Beatty MD LAB BLOOD ORDERABLES Final Res ult Performing Organization Address City/[facility]/ZIP Co de Phone Number EMELYN HYATT (BONDURANT) 1 [facility] [place] [address] * CRP (acute phase) (05/10/2025 1:12 PM CAR DRIVER) CRP <3.0 <=10.0 mg/L Blood 05/10/2025 1:12 PM CAR DRIVER 05/10/2025 1:26 PM CAR DRIVER Hipolito Beatty MD LAB BLOOD ORDERABLES Final Res ult EMELYN HYATT (BONDURANT) 1 [facility] [employer] [address] * (ABNORMAL) TSH (05/10/2025 1:12 PM CAR DRIVER) Thyroid Stimulating Hormone 21.20(H) 0.30 - 4.20 mcIUnit/mL Blood 05/10/2025 1:12 PM CAR DRIVER 05/10/2025 1:26 PM CAR DRIVER us Hipolito Beatty MD LAB BLOOD ORDERABLES Final Res ult EMELYN HYATT (BONDURANT) 1 [facility] [place] [address] * Phosphorus (05/10/2025 1:12 PM CAR DRIVER) Phosphorus, pl 3.3 2.3 - 4.5 mg/dL Blood 05/10/2025 1:12 PM CAR DRIVER 05/10/2025 1:26 PM CAR DRIVER Hipolito Beatty MD LAB BLOOD ORDERABLES Final Res ult Performing Organization Address [facility] Co de Phone Number EMELYN HYATT (BONDURANT) 1 [facility] [place] [address] * (ABNORMAL) Comprehensive metabolic panel (05/10/2025 1:12 PM CAR DRIVER) Sodium 135 135 - 145 mmol/L Potassium, pl 3.3 3.3 - 4.9 mmol/L [facility] (KIM) Chloride 98 97 - 110 mmol/L [facility] (KIM) CO2 26 22 - 32 mmol/L [facility] (KIM) Anion gap 11 2 - 15 mmol/L [facility] BUN 9 6 - 25 mg/dL [facility] Creatinine 0.97 0.60 - 1.10 [...] classification and Diagnosis of Diabetes Diabetes Care 202; 46: S19-S40. Current interpretive data was last [...] [facility] (KIM) Blood 05/10/2025 1:12 PM CAR DRIVER 05/10/2025 1:26 PM CAR DRIVER us Hipolito Beatty MD LAB BLOOD ORDERABLES Final Res ult [facility]N [facility] (KIM) 1 [facility] [place] [address] * XR Shoulder Left 2 or More Views (03/01/2025 1:19 PM CDT) Anatomical Region Laterality Modality Upper Extremities, Shoulder Left Comp uted Radiography 03/01/2025 8:28 PM CDT Narrative 03/01/2025 8:34 PM CDT EXAM DESCRIPTION: 1. XR FOOT LEFT 2 VIEWS; 2. XR FOOT RIGHT 2 VIEWS; 3. XR SHOULDER LEFT 2 OR MORE VIEWS; 4. XR HAND RIGHT 2 VIEWS; 5. XR HAND LEFT 2 VIEWS REASON FOR STUDY: Bilateral hand and foot pain, left shoulder pain. Pain in left shoulder Systematic lupus erythematosus. Hx of arthritis in L shoulder. FINDINGS: Two views each foot, two views each hand and four views left shoulder submitted with comparison 02/18/2021. Left shoulder: No acute fracture. Severe left glenohumeral joint osteoarthritis. Alignment is normal. Minimal left acromioclavicular joint osteoarthritis. Arterial atherosclerosis is present. Right hand: No erosions. Prior trapeziectomy has been performed. No acute fracture. Mild radiocarpal joint osteoarthritis. Izbb-fj-lisogdtn metacarpophalangeal and interphalangeal joint osteoarthritis. Prior ring finger distal interphalangeal joint arthrodesis has been performed. No dorsal wrist soft tissue swelling. Left hand: No erosions. No acute fracture. Prior trapeziectomy. Yila-os-egwbujbc metacarpophalangeal and interphalangeal joint osteoarthritis. Prior index and ring finger distal interphalangeal joint arthrodesis noted. Feet: No erosions. No acute fracture. Polyarticular midfoot osteoarthritis. Moderate bilateral hallux valgus with bunion deformities and 1st metatarsophalangeal joint osteoarthritis. IMPRESSION: 1. No radiographic evidence of inflammatory arthritis. 2. Severe left glenohumeral joint osteoarthritis. 3. Polyarticular bilateral hand and wrist osteoarthritis. 4. Bilateral midfoot osteoarthritis. 5. Moderate left hallux valgus with bunion deformities and 1st metatarsophalangeal joint osteoarthritis. THIS IS AN ELECTRONICALLY VERIFIED FINAL REPORT 03/01/2025 8:34 PM - Electronically signed by Gama Marshall M.D. MF: [place] Report ID: [id number] Reading Location: [id number] Procedure Note Gama Marshall MD - 03/01/2025 EXAM DESCRIPTION: 1. XR FOOT LEFT 2 VIEWS; 2. XR FOOT RIGHT 2 VIEWS; 3. XR SHOULDER LEFT 2 OR MORE VIEWS; 4. XR HAND RIGHT 2 VIEWS; 5. XR HAND LEFT 2 VIEWS REASON FOR STUDY: Bilateral hand and foot pain, left shoulder pain. Painin left shoulder Systematic lupus erythematosus. Hx of arthritis in L shoulder. FINDINGS: Two views each foot, two views each hand and four views left shoulder submitted with comparison 02/18/2021. Left shoulder: No acute fracture. Severe left glenohumeral joint osteoarthritis.Alignment is normal. Minimal left acromioclavicular joint osteoarthritis. Arterial atherosclerosis is present. Right hand: No erosions. Prior trapeziectomy has been performed. No acute fracture. Mild radiocarpal joint osteoarthritis. Cfua-ua-wfocxllctoezlnzwfzmrrpywoku and interphalangeal joint osteoarthritis. Prior ring finger distal interphalangeal joint arthrodesis has been performed. No dorsal wristsoft tissue swelling. Left hand: No erosions. No acute fracture. Prior trapeziectomy. Umei-ni-fygjcbmp metacarpophalangeal and interphalangeal joint osteoarthritis. Prior indexand ring finger distal interphalangeal joint arthrodesis noted. Feet: No erosions. No acute fracture. Polyarticular midfoot osteoarthritis. Moderate bilateral hallux valgus with bunion deformities and 1st metatarsophalangeal joint osteoarthritis. IMPRESSION: 1. No radiographic evidence of inflammatory arthritis. 2. Severe left glenohumeral joint osteoarthritis. 3. Polyarticular bilateral hand and wrist osteoarthritis. 4. Bilateral midfoot osteoarthritis. 5. Moderate left hallux valgus with bunion deformities and 1st metatarsophalangeal joint osteoarthritis. THIS IS AN ELECTRONICALLY VERIFIED FINAL REPORT 03/01/2025 8:34 PM - Electronically signed by Gama Marshall M.D. MF: [place] Report ID: [id number] Reading Location: [id number] us Eusebia Albert MD IMG XR PROCEDURES Final Result * XR Foot Right 2 Views (03/01/2025 1:18 PM CDT) Anatomical Region Laterality Modality Lower Extremities, Foot Right Computed Radiography 03/01/2025 8:28 PM CDT Narrative 03/01/2025 8:34 PM CDT EXAM DESCRIPTION: 1. XR FOOT LEFT 2 VIEWS; 2. XR FOOT RIGHT 2 VIEWS; 3. XR SHOULDER LEFT 2 OR MORE VIEWS; 4. XR HAND RIGHT 2 VIEWS; 5. XR HAND LEFT 2 VIEWS REASON FOR STUDY: Bilateral hand and foot pain, left shoulder pain. Pain in left shoulder Systematic lupus erythematosus. Hx of arthritis in L shoulder. FINDINGS: Two views each foot, two views each hand and four views left shoulder submitted with comparison 02/18/2021. Left shoulder: No acute fracture. Severe left glenohumeral joint osteoarthritis. Alignment is normal. Minimal left acromioclavicular joint osteoarthritis. Arterial atherosclerosis is present. Right hand: No erosions. Prior trapeziectomy has been performed. No acute fracture. Mild radiocarpal joint osteoarthritis. Rosv-ol-kpukodpa metacarpophalangeal and interphalangeal joint osteoarthritis. Prior ring finger distal interphalangeal joint arthrodesis has been performed. No dorsal wrist soft tissue swelling. Left hand: No erosions. No acute fracture. Prior trapeziectomy. Adrx-qk-sppnyptj metacarpophalangeal and interphalangeal joint osteoarthritis. Prior index and ring finger distal interphalangeal joint arthrodesis noted. Feet: No erosions. No acute fracture. Polyarticular midfoot osteoarthritis. Moderate bilateral hallux valgus with bunion deformities and 1st metatarsophalangeal joint osteoarthritis. IMPRESSION: 1. No radiographic evidence of inflammatory arthritis. 2. Severe left glenohumeral joint osteoarthritis. 3. Polyarticular bilateral hand and wrist osteoarthritis. 4. Bilateral midfoot osteoarthritis. 5. Moderate left hallux valgus with bunion deformities and 1st metatarsophalangeal joint osteoarthritis. THIS IS AN ELECTRONICALLY VERIFIED FINAL REPORT 03/01/2025 8:34 PM - Electronically signed by Gama Marshall M.D. MF: [place] Report ID: [id number] Reading Location: [id number] Procedure Note Gama Marshall MD - 03/01/2025 EXAM DESCRIPTION: 1. XR FOOT LEFT 2 VIEWS; 2. XR FOOT RIGHT 2 VIEWS; 3. XR SHOULDER LEFT 2 OR MORE VIEWS; 4. XR HAND RIGHT 2 VIEWS; 5. XR HAND LEFT 2 VIEWS REASON FOR STUDY: Bilateral hand and foot pain, left shoulder pain. Painin left shoulder Systematic lupus erythematosus. Hx of arthritis in L shoulder. FINDINGS: Two views each foot, two views each hand and four views left shoulder submitted with comparison 02/18/2021. Left shoulder: No acute fracture. Severe left glenohumeral joint osteoarthritis.Alignment is normal. Minimal left acromioclavicular joint osteoarthritis. Arterial atherosclerosis is present. Right hand: No erosions. Prior trapeziectomy has been performed. No acute fracture. Mild radiocarpal joint osteoarthritis. Hxjg-sa-dhpyfpibnyavqcuqcxaizribsxa and interphalangeal joint osteoarthritis. Prior ring finger distal interphalangeal joint arthrodesis has been performed. No dorsal wristsoft tissue swelling. Left hand: No erosions. No acute fracture. Prior trapeziectomy. Rytw-iu-rckuerxu metacarpophalangeal and interphalangeal joint osteoarthritis. Prior indexand ring finger distal interphalangeal joint arthrodesis noted. Feet: No erosions. No acute fracture. Polyarticular midfoot osteoarthritis. Moderate bilateral hallux valgus with bunion deformities and 1st metatarsophalangeal joint osteoarthritis. IMPRESSION: 1. No radiographic evidence of inflammatory arthritis. 2. Severe left glenohumeral joint osteoarthritis. 3. Polyarticular bilateral hand and wrist osteoarthritis. 4. Bilateral midfoot osteoarthritis. 5. Moderate left hallux valgus with bunion deformities and 1st metatarsophalangeal joint osteoarthritis. THIS IS AN ELECTRONICALLY VERIFIED FINAL REPORT 03/01/2025 8:34 PM - Electronically signed by Gama Marshall M.D. MF: [place] Report ID: [id number] Reading Location: [id number] Hipolito Beatty MD IMG XR PROCEDURES Final Result * XR Foot Left 2 Views (03/01/2025 1:18 PM CDT) Anatomical Region Laterality Modality Lower Extremities, Foot Left Computed Radiography 03/01/2025 8:28 PM CDT Narrative 03/01/2025 8:34 PM CDT EXAM DESCRIPTION: 1. XR FOOT LEFT 2 VIEWS; 2. XR FOOT RIGHT 2 VIEWS; 3. XR SHOULDER LEFT 2 OR MORE VIEWS; 4. XR HAND RIGHT 2 VIEWS; 5. XR HAND LEFT 2 VIEWS REASON FOR STUDY: Bilateral hand and foot pain, left shoulder pain. Pain in left shoulder Systematic lupus erythematosus. Hx of arthritis in L shoulder. FINDINGS: Two views each foot, two views each hand and four views left shoulder submitted with comparison 02/18/2021. Left shoulder: No acute fracture. Severe left glenohumeral joint osteoarthritis. Alignment is normal. Minimal left acromioclavicular joint osteoarthritis. Arterial atherosclerosis is present. Right hand: No erosions. Prior trapeziectomy has been performed. No acute fracture. Mild radiocarpal joint osteoarthritis. Uwwp-rx-fhclitxw metacarpophalangeal and interphalangeal joint osteoarthritis. Prior ring finger distal interphalangeal joint arthrodesis has been performed. No dorsal wrist soft tissue swelling. Left hand: No erosions. No acute fracture. Prior trapeziectomy. Sxjd-op-crjzvpkm metacarpophalangeal and interphalangeal joint osteoarthritis. Prior index and ring finger distal interphalangeal joint arthrodesis noted. Feet: No erosions. No acute fracture. Polyarticular midfoot osteoarthritis. Moderate bilateral hallux valgus with bunion deformities and 1st metatarsophalangeal joint osteoarthritis. IMPRESSION: 1. No radiographic evidence of inflammatory arthritis. 2. Severe left glenohumeral joint osteoarthritis. 3. Polyarticular bilateral hand and wrist osteoarthritis. 4. Bilateral midfoot osteoarthritis. 5. Moderate left hallux valgus with bunion deformities and 1st metatarsophalangeal joint osteoarthritis. THIS IS AN ELECTRONICALLY VERIFIED FINAL REPORT 03/01/2025 8:34 PM - Electronically signed by Gama Marshall M.D. MF: [place] Report ID: [id number] Reading Location: [id number] Procedure Note Gama Marshall MD - 03/01/2025 EXAM DESCRIPTION: 1. XR FOOT LEFT 2 VIEWS; 2. XR FOOT RIGHT 2 VIEWS; 3. XR SHOULDER LEFT 2 OR MORE VIEWS; 4. XR HAND RIGHT 2 VIEWS; 5. XR HAND LEFT 2 VIEWS REASON FOR STUDY: Bilateral hand and foot pain, left shoulder pain. Painin left shoulder Systematic lupus erythematosus. Hx of arthritis in L shoulder. FINDINGS: Two views each foot, two views each hand and four views left shoulder submitted with comparison 02/18/2021. Left shoulder: No acute fracture. Severe left glenohumeral joint osteoarthritis.Alignment is normal. Minimal left acromioclavicular joint osteoarthritis. Arterial atherosclerosis is present. Right hand: No erosions. Prior trapeziectomy has been performed. No acute fracture. Mild radiocarpal joint osteoarthritis. Oowh-fd-kvrtpqfifhbcreljlojvrandsdz and interphalangeal joint osteoarthritis. Prior ring finger distal interphalangeal joint arthrodesis has been performed. No dorsal wristsoft tissue swelling. Left hand: No erosions. No acute fracture. Prior trapeziectomy. Mbar-ah-yqfrzgrz metacarpophalangeal and interphalangeal joint osteoarthritis. Prior indexand ring finger distal interphalangeal joint arthrodesis noted. Feet: No erosions. No acute fracture. Polyarticular midfoot osteoarthritis. Moderate bilateral hallux valgus with bunion deformities and 1st metatarsophalangeal joint osteoarthritis. IMPRESSION: 1. No radiographic evidence of inflammatory arthritis. 2. Severe left glenohumeral joint osteoarthritis. 3. Polyarticular bilateral hand and wrist osteoarthritis. 4. Bilateral midfoot osteoarthritis. 5. Moderate left hallux valgus with bunion deformities and 1st metatarsophalangeal joint osteoarthritis. THIS IS AN ELECTRONICALLY VERIFIED FINAL REPORT 03/01/2025 8:34 PM - Electronically signed by Gama Marshall M.D. MF: [place] Report ID: [id number] Reading Location: [place] [address] Hipolito Beatty MD IMG XR PROCEDURES Final Result * XR Hand Right 2 Views (03/01/2025 1:18 PM CDT) Anatomical Region Laterality Modality Upper Extremities, Hand Right Computed Radiography 03/01/2025 8:28 PM CDT Narrative 03/01/2025 8:34 PM CDT EXAM DESCRIPTION: 1. XR FOOT LEFT 2 VIEWS; 2. XR FOOT RIGHT 2 VIEWS; 3. XR SHOULDER LEFT 2 OR MORE VIEWS; 4. XR HAND RIGHT 2 VIEWS; 5. XR HAND LEFT 2 VIEWS REASON FOR STUDY: Bilateral hand and foot pain, left shoulder pain. Pain in left shoulder Systematic lupus erythematosus. Hx of arthritis in L shoulder. FINDINGS: Two views each foot, two views each hand and four views left shoulder submitted with comparison 02/18/2021. Left shoulder: No acute fracture. Severe left glenohumeral joint osteoarthritis. Alignment is normal. Minimal left acromioclavicular joint osteoarthritis. Arterial atherosclerosis is present. Right hand: No erosions. Prior trapeziectomy has been performed. No acute fracture. Mild radiocarpal joint osteoarthritis. Lhyt-pi-nyqefjaj metacarpophalangeal and interphalangeal joint osteoarthritis. Prior ring finger distal interphalangeal joint arthrodesis has been performed. No dorsal wrist soft tissue swelling. Left hand: No erosions. No acute fracture. Prior trapeziectomy. Bamq-mj-drsalkzy metacarpophalangeal and interphalangeal joint osteoarthritis. Prior index and ring finger distal interphalangeal joint arthrodesis noted. Feet: No erosions. No acute fracture. Polyarticular midfoot osteoarthritis. Moderate bilateral hallux valgus with bunion deformities and 1st metatarsophalangeal joint osteoarthritis. IMPRESSION: 1. No radiographic evidence of inflammatory arthritis. 2. Severe left glenohumeral joint osteoarthritis. 3. Polyarticular bilateral hand and wrist osteoarthritis. 4. Bilateral midfoot osteoarthritis. 5. Moderate left hallux valgus with bunion deformities and 1st metatarsophalangeal joint osteoarthritis. THIS IS AN ELECTRONICALLY VERIFIED FINAL REPORT 03/01/2025 8:34 PM - Electronically signed by Gama Marshall M.D. MF: [place] Report ID: [id number] Reading Location: [id number] Procedure Note Gama Marshall MD - 03/01/2025 EXAM DESCRIPTION: 1. XR FOOT LEFT 2 VIEWS; 2. XR FOOT RIGHT 2 VIEWS; 3. XR SHOULDER LEFT 2 OR MORE VIEWS; 4. XR HAND RIGHT 2 VIEWS; 5. XR HAND LEFT 2 VIEWS REASON FOR STUDY: Bilateral hand and foot pain, left shoulder pain. Painin left shoulder Systematic lupus erythematosus. Hx of arthritis in L shoulder. FINDINGS: Two views each foot, two views each hand and four views left shoulder submitted with comparison 02/18/2021. Left shoulder: No acute fracture. Severe left glenohumeral joint osteoarthritis.Alignment is normal. Minimal left acromioclavicular joint osteoarthritis. Arterial atherosclerosis is present. Right hand: No erosions. Prior trapeziectomy has been performed. No acute fracture. Mild radiocarpal joint osteoarthritis. Dogl-dj-aybubvpundwehkkkrjlwqacgdxx and interphalangeal joint osteoarthritis. Prior ring finger distal interphalangeal joint arthrodesis has been performed. No dorsal wristsoft tissue swelling. Left hand: No erosions. No acute fracture. Prior trapeziectomy. Ojbe-mm-zojmhndo metacarpophalangeal and interphalangeal joint osteoarthritis. Prior indexand ring finger distal interphalangeal joint arthrodesis noted. Feet: No erosions. No acute fracture. Polyarticular midfoot osteoarthritis. Moderate bilateral hallux valgus with bunion deformities and 1st metatarsophalangeal joint osteoarthritis. IMPRESSION: 1. No radiographic evidence of inflammatory arthritis. 2. Severe left glenohumeral joint osteoarthritis. 3. Polyarticular bilateral hand and wrist osteoarthritis. 4. Bilateral midfoot osteoarthritis. 5. Moderate left hallux valgus with bunion deformities and 1st metatarsophalangeal joint osteoarthritis. THIS IS AN ELECTRONICALLY VERIFIED FINAL REPORT 03/01/2025 8:34 PM - Electronically signed by Gama Marshall M.D. MF: [place] Report ID: [id number] Reading Location: [place] [address] Hipolito Beatty MD IMG XR PROCEDURES Final Result * XR Hand Left 2 Views (03/01/2025 1:18 PM CDT) Anatomical Region Laterality Modality Upper Extremities, Hand Left Computed Radiography 03/01/2025 8:28 PM CDT Narrative 03/01/2025 8:34 PM CDT EXAM DESCRIPTION: 1. XR FOOT LEFT 2 VIEWS; 2. XR FOOT RIGHT 2 VIEWS; 3. XR SHOULDER LEFT 2 OR MORE VIEWS; 4. XR HAND RIGHT 2 VIEWS; 5. XR HAND LEFT 2 VIEWS REASON FOR STUDY: Bilateral hand and foot pain, left shoulder pain. Pain in left shoulder Systematic lupus erythematosus. Hx of arthritis in L shoulder. FINDINGS: Two views each foot, two views each hand and four views left shoulder submitted with comparison 02/18/2021. Left shoulder: No acute fracture. Severe left glenohumeral joint osteoarthritis. Alignment is normal. Minimal left acromioclavicular joint osteoarthritis. Arterial atherosclerosis is present. Right hand: No erosions. Prior trapeziectomy has been performed. No acute fracture. Mild radiocarpal joint osteoarthritis. Btzf-cd-wehzjsil metacarpophalangeal and interphalangeal joint osteoarthritis. Prior ring finger distal interphalangeal joint arthrodesis has been performed. No dorsal wrist soft tissue swelling. Left hand: No erosions. No acute fracture. Prior trapeziectomy. Buka-ds-kgmxtpea metacarpophalangeal and interphalangeal joint osteoarthritis. Prior index and ring finger distal interphalangeal joint arthrodesis noted. Feet: No erosions. No acute fracture. Polyarticular midfoot osteoarthritis. Moderate bilateral hallux valgus with bunion deformities and 1st metatarsophalangeal joint osteoarthritis. IMPRESSION: 1. No radiographic evidence of inflammatory arthritis. 2. Severe left glenohumeral joint osteoarthritis. 3. Polyarticular bilateral hand and wrist osteoarthritis. 4. Bilateral midfoot osteoarthritis. 5. Moderate left hallux valgus with bunion deformities and 1st metatarsophalangeal joint osteoarthritis. THIS IS AN ELECTRONICALLY VERIFIED FINAL REPORT 03/01/2025 8:34 PM - Electronically signed by Gama Marshall M.D. MF: [place] Report ID: [id number] Reading Location: [id number] Procedure Note Gama Marshall MD - 03/01/2025 EXAM DESCRIPTION: 1. XR FOOT LEFT 2 VIEWS; 2. XR FOOT RIGHT 2 VIEWS; 3. XR SHOULDER LEFT 2 OR MORE VIEWS; 4. XR HAND RIGHT 2 VIEWS; 5. XR HAND LEFT 2 VIEWS REASON FOR STUDY: Bilateral hand and foot pain, left shoulder pain. Painin left shoulder Systematic lupus erythematosus. Hx of arthritis in L shoulder. FINDINGS: Two views each foot, two views each hand and four views left shoulder submitted with comparison 02/18/2021. Left shoulder: No acute fracture. Severe left glenohumeral joint osteoarthritis.Alignment is normal. Minimal left acromioclavicular joint osteoarthritis. Arterial atherosclerosis is present. Right hand: No erosions. Prior trapeziectomy has been performed. No acute fracture. Mild radiocarpal joint osteoarthritis. Wgnq-je-sgdedvnkepburfijgktrntlvcch and interphalangeal joint osteoarthritis. Prior ring finger distal interphalangeal joint arthrodesis has been performed. No dorsal wristsoft tissue swelling. Left hand: No erosions. No acute fracture. Prior trapeziectomy. Duso-qv-tjxalvqq metacarpophalangeal and interphalangeal joint osteoarthritis. Prior indexand ring finger distal interphalangeal joint arthrodesis noted. Feet: No erosions. No acute fracture. Polyarticular midfoot osteoarthritis. Moderate bilateral hallux valgus with bunion deformities and 1st metatarsophalangeal joint osteoarthritis. IMPRESSION: 1. No radiographic evidence of inflammatory arthritis. 2. Severe left glenohumeral joint osteoarthritis. 3. Polyarticular bilateral hand and wrist osteoarthritis. 4. Bilateral midfoot osteoarthritis. 5. Moderate left hallux valgus with bunion deformities and 1st metatarsophalangeal joint osteoarthritis. THIS IS AN ELECTRONICALLY VERIFIED FINAL REPORT 03/01/2025 8:34 PM - Electronically signed by Gama Marshall M.D. MF: [facility] Report ID: [id number] Reading Location: [place] [address] Hipolito Beatty MD IMG XR PROCEDURES Final Result * (ABNORMAL) Urinalysis reflex to microscopic and culture Urine (03/01/2025 12:47 PM CDT) Color, ur Yellow Yellow Clarity, ur Turbid(A) Clear CERNER A MH (KIM) Specific gravity, ur 1.007 1.003 - 1.030 [facility] (KIM) pH, urine 6.5 [facility] (KIM) Comment: Interpretive Data U rine pH is affected by diet, medications, systemic acid-base disturbances, and renal tubular function. pH may affect urinary stone formation. For example, urine pH below 6.0 may help reduce the tendency for calcium phosphate stones and pH greater than 6.0 may reduce the tendency for uric acid stone formation. Source: [employer] Current Interpretive Data was last revised on 2017 Protein, ur ql Negative Negative [facility]ERNE R [facility] (KIM) Glucose, ur ql Negative Negative [facility] (KIM) Ketones, ur Negative Negative [facility] (KIM) Bilirubin, ur Negative Negative [facility] (KIM) Blood, ur Negative Negative [facility] (KIM) Urobilinogen, ur <2.0 <2.0 mg/dL [facility] (KIM) Nitrite, ur Negative Negative [facility] (KIM) Leukocyte esterase, ur 4+(A) Negative [facility] (KIM) UA reflex comment Reflex to microscopic UA will be performed. EMELYN [facility] (KIM) Urine 03/01/2025 12:4 7 PM CDT 03/01/2025 1:22 PM CDT Hipolito Beatty MD LAB MICROBIOLOGY - GENERAL ORD ERABLES Final Result Performing Organization Address City/[facility]/ZIP Co de Phone Number EMELYN HYATT (KIM) 1 [facility] [place] [place] [address] * (ABNORMAL) Urinalysis, microscopic only (03/01/2025 12:47 PM CDT) WBC, ur >50(A) 0 - 5 /HPF RBC, ur 3-5(A) 0 - 2 /HPF [facility] (KIM) Epithelial cells, squamous, ur 1-5 0 - 5 /HPF [facility] (KIM) Bacteria, ur Trace(A) [facility] (KIM) Mucous, ur Present(A) CERNER A [facility] (KIM) Hyaline casts, ur 1-5 0 - 10 /LPF [facility] (KIM) Culture Reflex Comment Reflex to urine culture will be performed. EM[facility]N [facility] (KIM) Urine 03/01/2025 12:4 7 PM CDT 03/01/2025 1:22 PM CDT Hipolito Beatty MD LAB URINE ORDERABLES Final Res ult Performing Organization Address City/[facility]/ZIP Co de Phone Number EMELYN HYATT (KIM) 1 [facility] [place] [place] [address] * (ABNORMAL) Urine culture Urine (03/01/2025 12:47 PM CDT) Report Final Report: Greater than or equal to 100,000 colonies/mL of Escherichia coli (.) Comment:Testing performed by : [facility], 1 [facility] [place] [address] Organism ESCHERICHIA COLI EMELYN HYATT (KIM) Urine 03/01/2025 12:4 7 PM CDT 03/01/2025 5:13 PM CDT Narrative EMELYN HYATT (KIM) - 03/04/2025 6:34 AM CDT Urine culture reflexed based upon urinalysis results. Testing performed by [facility] Microbiology Laboratory ([phone]) Organism Antibiotic Method Susceptibility Escherichia coli Ampicillin INTERPRETATION Susceptible Escherichia coli Cefazolin INTERPRETATION Susceptible Escherichia coli Nitrofurantoin INTERPRETATION Susceptible Escherichia coli Gentamicin INTERPRETATION Susceptible Escherichia coli Trimethoprim with Sulfamethoxazole IN TERPRETATION Susceptible Escherichia coli Meropenem INTERPRETATION Susceptible Escherichia coli Cefepime INTERPRETATION Susceptible Escherichia coli Ciprofloxacin INTERPRETATION Resistant Escherichia coli Ceftazidime INTERPRETATION Susceptible Escherichia coli Ceftriaxone INTERPRETATION Susceptible Escherichia coli Piperacillin/Tazobactam INTERPRETATIO N Susceptible Escherichia coli Cephalexin INTERPRETATION Susceptible Escherichia coli Cefuroxime-axetil INTERPRETATION Susceptible Escherichia coli Cefdinir INTERPRETATION Susceptible Hipolito Beatty MD LAB MICROBIOLOGY - GENERAL ORD ERABLES Final Result EMELYN HYATT (KIM) 1 [facility] Department of Laboratories [place], [place] [id number] * (ABNORMAL) LOUIE ab ql w/rflx to LOUIE qn (03/01/2025 12:45 PM CDT) LOUIE Positive( A) Comment: Interpretive Data Normal range for LOUIE Qualitative Antibody = Negative. 1. LOUIE is performed using indirect immunofluorescence against HEp-2 cells 2. LOUIE titers are performed on all positive qualitative results. 3. A significantly positive LOUIE result is defined as a positive nuclear fluorescence at a titer of 1:80 or greater. 4. 15% of normal people above age 65 have significantly positive LOUIE results. 5% or less of normal people age 65 or under have significantly positive LOUIE results. Current interpretive data was last revised on 2020. Testing performed by: [facility], 1 [facility], [place]., [address] LOUIE, quant 1:320 titer EMELYN Anderson (KIM) Comment:Testing performed by : [facility], [address] [place]., [address] LOUIE, interp Speckled( A) EMELYN HYATT (KIM) Comment:Testing performed by : [facility], [address] [place] [address] Blood 03/01/2025 12:4 5 PM CDT 03/01/2025 4:52 PM CDT Hipolito Beatty MD LAB BLOOD ORDERABLES Final Res ult EMELYN HYATT (KIM) 1 [facility] [place] [address] * SCL 70 abs (03/01/2025 12:45 PM CDT) Pathologist [facility] Anti-Scl70, IgG <0.2 <=0.9 Ab Index Comment: Interpretive Data Negative: < 1.0 Ab Index Positive: > or = 1.0 Ab Index Current interpretive data was last revised on 2016. Testing performed by: [facility], [address] [place]., [address] Blood 03/01/2025 12:4 5 PM CDT 03/02/2025 9:39 AM CDT Hipolito Beatty MD LAB BLOOD ORDERABLES Final Res ult EMELYN HYATT (KIM) 1 [facility] [place] [address] * eGFR (03/01/2025 12:45 PM CDT) Pathologist [facility] eGFR 80 >=60 mL/min/1. 73 m2 Comment: Interpretive Data [...] interpretive data was last reviewed 2021. Blood 03/01/2025 12:4 5 PM CDT 03/01/2025 12:53 PM CDT us Hipolito Beatty MD LAB BLOOD ORDERABLES Final Res ult EMELYN [facility] ([place]) 1 [facility] [place] [address] * (ABNORMAL) Differential, auto (03/01/2025 12:45 PM CDT) Neutrophil abs 4.11 1.50 - 6.50 K/cumm Imm gran abs 0.01 0.00 - 0.10 K/cumm [facility] (KIM) Lymphocyte abs 0.60(L) 0.80 - 3.30 K/cumm [facility] (KIM) Monocyte abs 0.35 0.20 - 0.80 K/cumm [facility] (KIM) Eosinophil abs 0.19 0.00 - 0.50 K/cumm [facility] (KIM) Basophil abs 0.07 0.00 - 0.10 K/cumm [facility] (KIM) Neutrophil pct 77.0 % [facility] (KIM) Comment: Interpretive Data Percent cell count reference ranges are not reported, since discordance with absolute values may lead to misinterpretation of CBC data. Current Interpretive Data was last revised on 2017. Imm gran pct 0.2 % [facility] (KIM) Comment: Interpretive Data Percent cell count reference ranges are not reported, since discordance with absolute values may lead to misinterpretation of CBC data. Current Interpretive Data was last revised on 2017. Lymphocyte pct 11.3 % [facility] (KIM) Comment: Interpretive Data Percent cell count reference ranges are not reported, since discordance with absolute values may lead to misinterpretation of CBC data. Current Interpretive Data was last revised on 2017. Monocyte pct 6.6 % [facility] (KIM) Comment: Interpretive Data Percent cell count reference ranges are not reported, since discordance with absolute values may lead to misinterpretation of CBC data. Current Interpretive Data was last revised on 2017. Eosinophil pct 3.6 % [facility] (KIM) Comment: Interpretive Data Percent cell count reference ranges are not reported, since discordance with absolute values may lead to misinterpretation of CBC data. Current Interpretive Data was last revised on 2017. Basophil pct 1.3 % [facility] (KIM) Comment: Interpretive Data Percent cell count reference ranges are not reported, since discordance with absolute values may lead to misinterpretation of CBC data. Current Interpretive Data was last revised on 2017. Blood 03/01/2025 12:4 5 PM CDT 03/01/2025 12:53 PM CDT us Hipolito Beatty MD LAB BLOOD ORDERABLES Final Res ult EMELYN EDMAR (BONDURANT) 1 [facility] [place] [address] * Dylan abs (03/01/2025 12:45 PM CDT) Anti-ALETHEA, SM <0.2 <=0.9 Ab Index Comment: Interpretive Data Negative: < 1.0 Ab Index Positive: > or = 1.0 Ab Index Current interpretive data was last revised on 2016. Testing performed by: [facility], 1 [facility], [place]., [address] Blood 03/01/2025 12:4 5 PM CDT 03/02/2025 9:39 AM CDT Hipolito Beatty MD LAB BLOOD ORDERABLES Final Res ult Performing Organization Address City/[facility] Co de Phone Number EMELYN [facility] ([place]) 1 [place] [address] * PATIENT SERVICE REPRESENTATIVE abs (03/01/2025 12:45 PM CDT) PATIENT SERVICE REPRESENTATIVE ab <0.2 <=0.9 Ab Index Comment: Interpretive Data Negative: < 1.0 Ab Index Positive: > or = 1.0 Ab Index Current interpretive data was last revised on 2016. Testing performed by: [facility], [address] [place] [address]., [id number] Blood 03/01/2025 12:4 5 PM CDT 03/02/2025 9:39 AM CDT Hipolito Beatty MD LAB BLOOD ORDERABLES Final Res ult Performing Organization Address [facility] Co de Phone Number EMELYN [facility] ([place]) 1 [place] [address] * (ABNORMAL) ALETHEA ab eval w/reflex (03/01/2025 12:45 PM CDT) ALETHEA ab Positive( A) Negative Comment: Interpretive Data Positive Screens will be reflexed to specific testing for Antibodies against the following antigens: Kelly-1 Ab, PATIENT SERVICE REPRESENTATIVE Ab, Scl-70 Ab, Richardson Ab, SS-A/Ro Ab, and SS- B/La Ab. Further testing for dsDNA, Centromere, or Ribosomal P antibodies is suggested in patient with a positive screen and negative specific antibodies. Current interpretive data was last revised on 2022. Testing performed by: [facility], [address] [place] [address]., [address] Blood 03/01/2025 12:4 5 PM CDT 03/01/2025 4:52 PM CDT Hipolito Beatty MD LAB BLOOD ORDERABLES Final Res ult EMELYN HYATT (B[place]UR[place]) 1 [facility] [place] [address] * Kelly-1 antibody (03/01/2025 12:45 PM CDT) Pathologist [facility] Kelly 1 Antibody, IgG <0.2 <=0.9 Ab Index Comment: Interpretive Data Negative: < 1.0 Ab Index Positive: > or = 1.0 Ab Index Current interpretive data was last revised on 2016. Testing performed by: [facility], [address] [place]., [address] Blood 03/01/2025 12:4 5 PM CDT 03/02/2025 9:39 AM CDT Hipolito Beatty MD LAB BLOOD ORDERABLES Final Res ult Performing Organization Address City/[facility] Co de Phone Number EMELYN HYATT (BONDURANT) 1 [facility] [place] [address] * TB test, quantiferon gold (03/01/2025 12:45 PM CDT) [facility] Quantiferon TB Gold Negative Negative [facility] Comment: No interferon-gamma response to M. tuberculosis antigens was detected. Latent infection with M. tuberculosis is unlikely. A single negative result does not exclude infection with M. tuberculosis. In patients at high risk for M.tuberculosis infection, a second test should be considered in accordance with the 2017 ATS/IDSA/CDC Clinical Practice Guidelines for Diagnosis of Tuberculosis in Adults and Children [Lewinsohn DM et. al. Clin. Infect. Dis. 2017;64(2):111-115]. The reference range for the 'TB1 Ag minus Nil Result' and 'TB2 Ag minus Nil Result' is an Interferon-gamma level <0.35 IU/mL. TB-Nil 0.01 IUnits/mL [facility] (KIM) TB2-Nil 0.01 IUnits/mL [facility] (KIM) Mitogen-Nil 9.96 IUnits/mL CERNER A MH (KIM) NIL 0.04 IUnits/mL [facility] (KIM) Comment: Test Performed by: [facility] [address] [place] [id number] Band Director: Dallas Martin Ph.D.; CLIA# [id number] Blood 03/01/2025 12:4 5 PM CDT 03/01/2025 12:53 PM CDT us Hipolito Beatty MD LAB BLOOD ORDERABLES Final Res ult BRUCENER [facility] (KIM) 1 [facility] [place] [address] [facility] * (ABNORMAL) CBC with auto differential (03/01/2025 12:45 PM CDT) WBC 5.33 3.80 - 9.90 K/cumm Hgb 11.1(L) 11.9 - 15.5 g/dL [facility] (KIM) Hct 34.3(L) 35.6 - 45.5 % [facility] (KIM) Plt 457(H) 150 - 400 K/cumm [facility] (KIM) MPV 8.3(L) 9.1 - 12.3 fL [facility] (KIM) RBC 3.72(L) 3.90 - 5.20 M/cumm [facility] (KIM) MCV 92.2 81.3 - 96.4 fL [facility] (KIM) MCH 29.8 27.1 - 33.3 pg [facility] (KIM) MCHC 32.4 32.3 - 35.7 g/dL [facility] (KIM) RDW CV 11.9 11.1 - 14.9 % [facility] (KIM) RDW SD 39.9 35.7 - 48.1 fL [facility] (KIM) NRBC abs 0.00 0.00 - 0.01 K/cumm [facility] (KIM) Blood 03/01/2025 12:4 5 PM CDT 03/01/2025 12:53 PM CDT Hipolito Beatty MD LAB BLOOD ORDERABLES Final Res ult EMELYN HYATT (KIM) 1 [facility] [place] [address] * Cyclic citrul peptide antibody, IgG (03/01/2025 12:45 PM CDT) CCP Ab <0.5 <=2.9 units/mL Comment: Interpretive data Negative: <3 units/mL Positive: > or equal to 3 units/mL Current interpretive data was last revised on 2016. Testing performed by: [facility], [address] [place] [address]., [id number] Blood 03/01/2025 12:4 5 PM CDT 03/02/2025 9:39 AM CDT Hipolito Beatty MD LAB BLOOD ORDERABLES Final Res ult Performing Organization Address City/[facility] Co de Phone Number EMELYN HYATT (BONDURANT) 1 [facility] [place] [address] * Hepatitis panel, acute Blood (03/01/2025 12:45 PM CDT) Pathologist [facility] Hep A IgM Nonreactive Nonreactive Comment: Interpretive Data: If Hep A IgM Ab is reported as Equivocal, a new sample should be drawn in two weeks for testing. Current interpretive data was last revised on 19. Testing performed by: [facility], [address] [place] [address], [place]., [address] Hep B core IgM Nonreactive Nonreactive Erasto HYATT (KIM) Comment: Interpretive Data If HepB Core IgM Ab is reported as Equivocal, a new sample should be drawn in two weeks for testing. Current interpretive data was last revised on 19. Testing performed by: [facility], [address] [place] [address], [place]., [address] Hep C Ab Nonreactive Nonreactive EMELYN [facility] (KIM) Comment: Interpretive Data Nonreactive: Antibodies to HCV not detected. Does NOT exclude the possibility of recent exposure to HCV. Equivocal: Equivocal for HCV antibodies. Supplemental molecular testing will be automatically performed to determine infection status in accordance with current CDC screening recommendations. Reactive: Positive for HCV antibodies. This may represent current or past HCV infection. Supplemental molecular testing will be automatically performed to determine current infection status in accordance with current CDC screening recommendations. Interpretive data was last revised on 2019. Testing performed by: [facility], [address] [place] [address]., [id number] HepBsAg Nonreactive Nonreactive EMELYN HYATT (KIM) Comment:Testing performed by : [facility], [address] [place] [address]., [id number] Blood 03/01/2025 12:4 5 PM CDT 03/02/2025 9:39 AM CDT Hipolito Beatty MD LAB MICROBIOLOGY - GENERAL ORD ERABLES Final Result Performing Organization Address [facility] Co de Phone Number EMELYN HYATT (KIM) 1 [facility] Department [place] [address] * Hepatitis B surface antibody (immune status) Blood (03/01/2025 12:45 PM CDT) Pathologist [facility] HBsAb (immune status) Nonreactive Comment: Interpretive Data Nonreactive: This result is consistent with a lack of immunity to Hepatitis B Virus when used in the setting of routine screening. Equivocal: The immune status of the individual should be further assessed, if appropriate, after consideration of clinical status, risk factors, and additional diagnostic information. Reactive: This result is consistent with immunity to Hepatitis B Virus when used in the setting of routine screening. Current interpretive data was last revised on 19. Testing performed by: [facility], [address] [place] [address]., [id number] Blood 03/01/2025 12:4 5 PM CDT 03/01/2025 5:15 PM CDT Hipolito Beatty MD LAB MICROBIOLOGY - GENERAL ORD ERABLES Final Result Performing Organization Address [facility] Co de Phone Number EMELYN HYATT (KIM) 1 [place] [address] * Sjogren's syndrome B ab (03/01/2025 12:45 PM CDT) Anti-ALETHEA, SS-B <0.2 <=0.9 Ab Index Comment: Interpretive Data Negative: < 1.0 Ab Index Positive: > or = 1.0 Ab Index Current interpretive data was last revised on 2016. Testing performed by: [facility], [address] [place] [address]., [address] Blood 03/01/2025 12:4 5 PM CDT 03/02/2025 9:39 AM CDT Hipolito Beatty MD LAB BLOOD ORDERABLES Final Res ult Performing Organization Address [facility] Co de Phone Number EMELYN HYATT ([place]URANT) 1 [place] [address] * (ABNORMAL) Sjogren's syndrome A ab (03/01/2025 12:45 PM CDT) Anti-ALETHEA, SS-A 3.6(H) <=0.9 Ab Index Comment: Interpretive Data Negative: < 1.0 Ab Index Positive: > or = 1.0 Ab Index Current interpretive data was last revised on 2016. Testing performed by: [facility], [address] [place] [address]., [address] Blood 03/01/2025 12:4 5 PM CDT 03/02/2025 9:39 AM CDT Hipolito Beatty MD LAB BLOOD ORDERABLES Final Res ult Performing Organization Address City/[facility]/ZIP Co de Phone Number EMELYN HYATT (KIM) 1 [place] [address] * Erythrocyte sedimentation rate (03/01/2025 12:45 PM CDT) Erythrocyte sedimentation rate 24 1 - 30 mm/hr Blood 03/01/2025 12:4 5 PM CDT 03/01/2025 12:53 PM CDT Hipolito Beatty MD LAB BLOOD ORDERABLES Final Res ult EMELYN HYATT ([place]UR[place]) 1 [facility] [place] [address] * Rheumatoid factor (03/01/2025 12:45 PM CDT) Pathologist [facility] Rheumatoid factor, quant <10 <=15 IUnits/mL Comment:Testing performed by : [facility], [address] [place] [address], [id number] Blood 03/01/2025 12:4 5 PM CDT 03/01/2025 5:15 PM CDT Hipolito Beatty MD LAB BLOOD ORDERABLES Final Res ult EMELYN HYATT ([place]URANT) 1 [place] [address] * CRP (acute phase) (03/01/2025 12:45 PM CDT) Pathologist [facility] CRP <3.0 <=10.0 mg/L EMELYN FLOWERS (BONDURANT) Blood 03/01/2025 12:4 5 PM CDT 03/01/2025 12:53 PM CDT Hipolito Beatty MD LAB BLOOD ORDERABLES Final Res ult EMELYN HYATT ([place]URANT) 1 [place] [address] * Uric acid (03/01/2025 12:45 PM CDT) Pathologist [facility] Uric acid 5.5 2.5 - 7.0 mg/dL EMELYN HYATT (KIM) Blood 03/01/2025 12:4 5 PM CDT 03/01/2025 12:53 PM CDT Hipolito Beatty MD LAB BLOOD ORDERABLES Final Res ult EMELYN HYATT (KIM) 1 [facility] [place] [address] * (ABNORMAL) TSH (03/01/2025 12:45 PM CDT) Thyroid Stimulating Hormone 0.11(L) 0.30 - 4.20 mcIUnit/mL EMELYN HYATT (KIM) Blood 03/01/2025 12:4 5 PM CDT 03/01/2025 12:53 PM CDT Hipolito Beatty MD LAB BLOOD ORDERABLES Final Res ult EMELYN HYATT (KIM) 1 [facility] [place] [address] * Phosphorus (03/01/2025 12:45 PM CDT) Phosphorus, pl 4.0 2.3 - 4.5 mg/dL EMELYN HYATT (KIM) Blood 03/01/2025 12:4 5 PM CDT 03/01/2025 12:53 PM CDT Hipolito Beatty MD LAB BLOOD ORDERABLES Final Res ult EMEYLN HYATT (KIM) 1 [facility] [place] [address] * Bilirubin, direct (03/01/2025 12:45 PM CDT) Bilirubin, direct 0.2 0.1 - 0.3 mg/dL EMELYN HYATT (KIM) Blood 03/01/2025 12:4 5 PM CDT 03/01/2025 12:53 PM CDT us Hipolito Beatty MD LAB BLOOD ORDERABLES Final Res ult EM[facility]N [facility] (KIM) 1 [facility] [place] [address] * (ABNORMAL) Comprehensive metabolic panel (03/01/2025 12:45 PM CDT) Sodium 136 135 - 145 mmol/L [facility] (KIM) Potassium, pl 4.3 3.3 - 4.9 mmol/L [facility] (KIM) Chloride 100 97 - 110 mmol/L [facility] (KIM) CO2 26 22 - 32 mmol/L [facility] (KIM) Anion gap 10 2 - 15 mmol/L [facility] (KIM) BUN 10 6 - 25 mg/dL [facility] (KIM) Creatinine 0.78 0.60 - 1.10 mg/dL [facility] (KIM) Glucose 90 70 - 199 mg/dL [facility] (KIM) [...] classification and Diagnosis of Diabetes Diabetes Care 202; 46: S19-S40. Current interpretive data was last revised 2022. Calcium 9.2 8.5 - 10.3 mg/dL [facility] (KIM) Bilirubin, total 0.4 0.1 - 1.2 mg/dL [facility] (KIM) Protein, pl 6.8 6.5 - 8.5 g/dL [facility] (KIM) Albumin 3.9 3.5 - 5.0 g/dL [facility] (KIM) Alk phos 112 40 - 130 Units/L [facility] (KIM) ALT 6(L) 7 - 45 Units/L [facility] (KIM) AST 27 10 - 45 Units/L [facility] (KIM) Blood 03/01/2025 12:4 5 PM CDT 03/01/2025 12:53 PM CDT us Hipolito Beatty MD LAB BLOOD ORDERABLES Final Res ult EM[facility]N [facility] (KIM) 1 [facility] [place] [address] * Dexa Axial Skeleton Bone Density 1 or 2 Site (01/04/2025 1:13 PM CDT) Anatomical Region Laterality Modality Body N/A Other 01/04/2025 5:05 PM CDT Narrative 01/04/2025 5:08 PM CDT EXAM DESCRIPTION: DEXA AXIAL SKELETON BONE DENSITY 1 OR MORE SITES REASON FOR STUDY: 74 y/o year old F with given history of: age-related osteoporosis 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 MF: [place] Report ID: [id number] Reading Location: [place] [address] Procedure Note Gama Marshall MD - 01/04/2025 EXAM DESCRIPTION: DEXA AXIAL SKELETON BONE DENSITY 1 OR MORE SITES REASON FOR STUDY: 74 y/o year old F with given history of:age-related osteoporosis screening Molecular Technologist/Model: [employer] (S/N [id number]) Facility LSC value of 0.022 for the [...] Gama Marshall M.D. MF: [place] Report ID: [id number] Reading Location: [id number] Eusebia Albert MD IMG DXA PROCEDURES Final Result * Screening Mammogram Bilateral W Winston (07/21/2024 2:28 PM CAR DRIVER) Anatomical Region Laterality Modality Breast Bilateral Mammography 07/21/2024 2:36 PM CAR DRIVER Impressions 07/21/2024 2:36 PM CAR DRIVER There is no mammographic evidence of malignancy. A 1 year screening mammogram is recommended. BI-RADS: 2 - Benign. The patient has been or will be contacted. The patient will be entered into a reminder system with a target due date of 1 year for her next mammogram. Electronically signed by: Tiny Forde M.D. Narrative 07/21/2024 2:36 PM CAR DRIVER EXAMINATION: SCREENING MAMMOGRAM BILATERAL W [place] ORDERING [...] Mcbride MD - 11/23/2020 9:58 AM CDT [facility] Patient Name: Dre Massey Procedure Date: 11/23/2020 9:58 AM Date of : 1950 Admit Type: Outpatient Age: 70 Gender: Female Attending MD: Jones Mcbride M.D. Room: [facility] ENDOSCOPY ROOM 2 Note Status: Finalized Patient [...] scope was passed under direct vision. TheColonoscope [id number] was introduced through the anus and advanced [...] were complete. Verification of patient identification for thespecimen was done by the physician and nurse [...] 9:58 AM Procedure Code(s): --- Professional --- 81554, 52, Colonoscopy, flexible; with removal of tumor(s), polyp(s),or other lesion(s) by hot biopsy forceps Diagnosis Code(s): --- Professional --- K57.30, Diverticulosis of large intestine without perforation orabscess without bleeding K63.89, Other specified diseases of intestine K63.5, Polyp of colon K64.9, Unspecified hemorrhoids Z86.010, Personal history of colonic polyps CPT copyright 2019 [employer]. All rights reserved. The codes documented in this report are preliminary and upon profile trimmer reviewmay be revised to meet current compliance requirements. Recognized by the [employer] for promoting quality in endoscopy Jones Mcbride MD ENDOSCOPY PROCEDURES Final Re sult from Last 3 Months or Most Recently Relevant to Health Maintenance Insurance [employer] SENIOR [facility] MEDICARE [facility] MEDICARE AETNA SENIOR SUPPLEMENT MEDICARE AETNA SENIOR SUPPLEMENT Advance Directives For more information, please contact: [phone] * Full Code (Latest Code Status on File) Date Activated Date Inactivated Comments 11/23/2020 9:06 AM 11/23/2020 5:11 PM * Full Code Date Activated Date Inactivated Comments 11/23/2020 9:06 AM 11/23/2020 9:06 AM * Full Code Date Activated Date Inactivated Comments 09/16/2017 7:51 AM 09/16/2017 12:10 PM Care Teams Pin Sorter And Bagger Relationship Specialty Start Date End Date Ana Vences MD [address] [place] [address] DR WICK [address] [place] [id number] PCP - General Family Medicine 07/06/24
--- OUTSIDE RECORDS SUMMARY | 2025-05-11 15:27 | XMS_ITS | Clinical Summary ---
Author Organization [facility] Address [address] [place] [address] Phone Care Team Providers Care Instructional Material Director Name Role Phone Maranda Ta APRN, DIGITAL STRATEGIST SENIOR MANAGER Unavailable Cuate Hadley MD Unavailable Ana Vences MD Primary Care Provider [phone] Allergies Active Allergy Reactions Criticality Noted Date [...] Active cyclobenzaprine (FLEXERIL) 5 MG TabletIndications:C ervical myelopathy,Fibromya lgia Take 5 mg by mouth nightly. 3 Active DULoxetine (CYMBALTA) [address] ParticlesIndication s:Fibromyalgia AM 3 Active ferrous sulfate 324 MG Tablet Delayed ResponseIndications :Iron deficiency Take 65 mg by mouth. Active gabapentin (NEURONTIN) 100 MG CapsuleIndications: Fibromyalgia Take 100 mg by mouth every morning. 3 Active hydroxychloroquine (PLAQUENIL) 200 MG TabletIndications:S ystemic lupus erythematosus, unspecified SLE type, unspecified organ involvement status,Sjogren syndrome with other organ involvement Take 200 mg by mouth 2 times daily. 1 Active meloxicam (MOBIC) 15 MG TabletIndications:S ystemic lupus erythematosus, unspecified SLE type, unspecified organ involvement status,Primary osteoarthritis involving multiple joints Take 1 Tablet [...] visit Arthritis of carpometacarpal (CMC) joint of maggie t thumb 11/13/2020 Overview (10/07/2022): Added automatically from request for surgery [id number] History of colonic polyps 10/18/2020 Overview (10/07/2022): Added automatically from request for surgery [id number] Microscopic hematuria 09/26/2020 Overview (10/07/2022): Last Assessment [...] considering her intermittent nausea only recommended Tylenol slee-lzf-rqouaac for pain alleviation in no ibuprofen or [...] lupus erythematosus) LOUIE positive Ssa positive sm crew chief ssb antidna and anti cardiolipins negative Joint [...] Migraines Brother 2 Edivory Osteoarthritis Brother 2 Ceasar 03/04/23 cause of was cardio pulmonary arrest. [...] Paternal Grandmother Breast Cancer Sister 1 Noemy Valencianoa Jennings, Everettivory Cancer Sister 1 Noemy Valencia Michaela, Edward [...] Sister 5 Noemy Thyroid Disease Sister 5 Neomy Relation Name Status Comments Brother 1 Brother [...] drink = 0.6 oz pur e alcohol) [facility] Utilities Answer Date Recorded In the past 12 months has e electric, gas, oil, or water company threatened [...] week 02/13/2024 How often do you attend [facility] or zoroastrianism services? More than 4 times per year 02/13/2024 Do you belong to any clubs o r organizations such as gnosticism groups, unions, fraternal or athletic groups, or [...] Recorded Total Score - Questions 1-9 01/25 [facility] - Occupational Stress Questionnaire Answer Date Recorded [...] place to sleep or slept in a custodial (including now)? No 08/09/2023 Housing Stability Vital Sign Answer Albino e Recorded In the last 12 months, was t here a time when you were not able to pay the mortgage or rent on time? Patient declined 02/13/20 24 Number of Times Moved in the Last Year Not on fi le 02/13/2024 At any time in the past 12 m [facility], were you homeless or living in a custodial (including now)? Patient declined 02/13/2024 Sexually Active Control Partners Comments Not Currently Female Comments No Sex and Gender Information Value Date Recorded Sex Assigned at Not on file Legal Sex Female 2:15 PM NURSE RECEPTIONIST Gender Identity Not on file Sexual Orientation Not on file Last Filed Vital Signs Vital Sign Reading Time Taken Comments Blood Pressure 98/78 05/03/2024 2:12 PM NURSE RECEPTIONIST Pulse 58 05/03/2024 2:12 PM NURSE RECEPTIONIST Temperature 35.8 C (96.4 F) 05/03/2024 2:12 PM NURSE RECEPTIONIST Respiratory Rate 18 05/03/2024 2:12 PM NURSE RECEPTIONIST Oxygen Saturation 91% 05/03/2024 2:12 PM NURSE RECEPTIONIST Inhaled Oxygen Concentration - - Weight 88.6 kg (195 lb 4 oz) 05/03/2024 2:12 PM NURSE RECEPTIONIST Height 160 cm (5' 3) 05/03/2024 2:12 PM NURSE RECEPTIONIST Body Mass Index 34.59 05/03/2024 2:12 PM NURSE RECEPTIONIST Plan of Treatment Health Maintenance Due Date Last Done Comments Cologuard 1995 Immunochemical Fecal Occult Blood 1995 Medicare Initial AWV [id number] 03/26/2016 Influenza Immunization (#1) 2025 Respiratory Syncytial Virus (RSV) Immunization (Adult) (1 - 1-dose 75+ series) 2025 Td Immunization Every 10 Years (Adults With 1 Tdap) 12/13/2026 12/13/2016, 11/23/2016 DEXA Bone Density 01/04/2027 01/04/2025, , 12/21/2021, Additional history exists Colonoscopy 11/23/2030 11/23/2020, 07/0 05/2020, 11/23/2020 Colorectal Cancer Screening 11/23/2030 Hepatitis C Virus (HCV) Screening Completed 08/03/2014, 07/28/2014 DTaP/Tdap/Td Immunization Discontinued 12/13/2016, 05/2016 Zoster Immunization Completed 01/04/2019, 9 SARS-COV-2 Immunization Discontinued 10/24/2020, 10/02 Pneumococcal Immunization (50+ years) Completed 10/01/2021, 09/01/2017, 04/10/2014, Additional history exists Pneumococcal Immunization Combined Discontinued 10/01/2021, 09/01/2017, 04/10/2014, Additional history exists Mammogram Discontinued 07/21/2024, 05/26, 05/21/2022, Additional history exists Hepatitis B Immunization Aged Out No longer eligible based on patient's age to complete this topic Human Papillomavirus (HPV) Immunization (No Doses Required) Completed Meningococcal Immunization (ACWY) Aged Out No longer eligible based on patient's age to complete this topic Rotavirus Immunization Aged Out No lo nger eligible based on patient's age to complete this topic Procedures Procedure Name Priority Date/Time Associated Diagnosis Comments MAMMOGRAM BILATERAL GENERIC 05/21/2022 12:00 AM NURSE RECEPTIONIST BONE DENSITY GENERIC 12/21/2021 12:00 AM CDT HM COLONOSCOPY 11/23/2020 12:00 AM CDT HEPATITIS PANEL ACUTE (AHP) 08/03/2014 12:00 AM CDT from Last 3 Months or Most Recently Relevant to Health Maintenance Results * MAMMOGRAM BILATERAL MISCELLANEOUS (05/21/2022 12:00 AM NURSE RECEPTIONIST) 05/21/2022 us Provider Scan IMG MAMMO ORDERABLES Final Resul t Performing Organization Address City/[facility]/ZIP Co de Phone Number SCAN * BONE DENSITY GENERIC SCAN (12/21/2021 12:00 AM CDT) 12/21/2021 us Provider Scan IMG DEXA ORDERABLES Final Result Performing Organization Address City/[facility]/ZIP Co de Phone Number SCAN * HM COLONOSCOPY (11/23/2020 12:00 AM CDT) 11/23/2020 us Provider Scan PROCEDURE/MINOR SURGICAL ORDERAB LES Final Result Performing Organization Address [facility]/ZIP Co de Phone Number SCAN * HEPATITIS PANEL ACUTE (AHP) (08/03/2014 12:00 AM CDT) 08/03/2014 us Provider Scan HEMATOLOGY ORDERABLES Final Resu lt NON-INTERFACED REFERENCE LABORATORIES from Last 3 Months or Most Recently Relevant to Health Maintenance Insurance MEDICARE [facility] Care Teams Instructional Material Director Relationship Specialty Start Date End Date Ana Vences MD [address] [place] [id number] PCP - General Family Medicine 01/11/25 Maranda Ta APRN, DIGITAL STRATEGIST SENIOR MANAGER [address] [place] [address] Nurse Practitioner Advanced Practice Nurse 11/18/22 Cuate Hadley MD [address] [address] Consulting Physician Colon and Rectal Surgery 11/10/23
--- OUTSIDE RECORDS SUMMARY | 2025-05-11 15:27 | XMS_ITS | Clinical Summary ---
Author Organization [facility] Address [address] [place] [address] Care Team Providers Care Building Energy Retrofit Technician Name Role Phone Unavailable Primary Care Provider Unavailabl e Source Comments [facility],non-owned Affiliates and Associated Physician Practices is amultiple site organization consisting of ambulatory clinics and hospital sitesin [place], [place], [place] and [place]. This disclosure is being madepursuant to the Care Everywhere program and may not contain all information available regarding this patient. Last updated 18.[facility] Social History Tobacco Use Types Packs/Day Years Used Date Smoking Tobacco: Never Assessed Comments Unknown Sex and Gender Information Value Date Recorded Sex Assigned at Not on file Legal Sex Female 6:24 AM RECREATIONAL DIRECTOR Gender Identity Not on file Sexual Orientation Not on file Last Filed Vital Signs Vital Sign Reading Time Taken Comments Blood Pressure - - Pulse - - Temperature - - Respiratory Rate - - Oxygen Saturation - - Inhaled Oxygen Concentration - - Weight - - Height 162.6 cm (5' 4) 05/23/2014 3:14 PM RECREATIONAL DIRECTOR Body Mass Index - - Plan of [...] 2000 ZOSTER VACCINE (1 of 2) 2000 DEPRESSION SCREENING 05/26/2024 COVID-19 VACCINE ( - 2024-2 6 season) 2025 INFLUENZA VACCINE (#1) 2025 Respiratory Syncytial Virus [...]
== END 2025-05-11 13:15 | disposition home or self-care (01) ==
PROVIDERS: Visit Provider Orthopaedic Surgery
DX: M19.012 Primary osteoarthritis, left shoulder (principal); Z01.818 Encounter for other preprocedural examination
CPT/HCPCS: 36415; 73200; 82040; 82565; 85014; 85018